=== PATIENT | female | born 1930 ===

== ENCOUNTER 2016-12-16 18:35 | Emergency (ER) | payer MEDICARE, OTHER ==
[2016-12-16 18:36] VITALS: BMI 24.4
[2016-12-16 18:58] VITALS: TEMP 99.3
[2016-12-16 19:19] VITALS: RESP 16; O2SAT 100
[2016-12-16] MEDS ORDERED: guaiFENesin 200 mg/10 ml Syrup UD PO ONE (21:22)
--- NOTE | 2016-12-16 21:22 | ED PDOC ---
Arrival/HPI - General Chief Complaint: Cough, Cold, Congestion Time Seen by Provider: 12/16/16 19:51 Historian: Patient - History of Present Illness Narrative History of Present Illness (Text): 12/16/16 21:33 Patient with past medical history of diabetes, complains of one day history of a dry cough. Patient is accompanied by her daughter, as per daughter she brought the patient to the ER today because she could not get an appointment with her PMD who happens to be away. Otherwise: (-) fever, (-) chills, (-) chest pain, (-) dyspnea, (-) hemoptysis, (-) upper back pain, (-) travel, (-) recent prolonged immobility. 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 - Pulmonary Hx Respiratory Disorders: No - Neurological Hx Neurological Disorder: No Hx Dementia: Yes - HEENT Hx HEENT Disorder: No - Renal Hx Renal Disorder: No - Endocrine/Metabolic Hx Diabetes Mellitus Type 2: Yes - Hematological/Oncological Hx Blood Disorders: No - Integumentary Hx Dermatological Disorder: No - Musculoskeletal/Rheumatological Hx Musculoskeletal Disorders: Yes Hx Arthritis: Yes Hx Rheumatoid Arthritis: Yes - Gastrointestinal Hx Gastrointestinal Disorders: No - Genitourinary/Gynecological Hx Genitourinary Disorders: No - Psychiatric Hx Psychophysiologic Disorder: No Hx Depression: No Hx Emotional Abuse: No Hx Physical Abuse: No Hx Substance Use: No - Past Surgical History Past Surgical History: No Previous - Surgical History Other/Comment: hemmoroidectomy - Anesthesia Hx Anesthesia: Yes Hx Anesthesia Reactions: No Hx Malignant Hyperthermia: No - Suicidal Assessment Feels Threatened In Home Enviroment: No Family/Social History - Physician Review Nursing Documentation Reviewed: Yes Family/Social History: No Known Family HX Smoking Status: Never Smoked Hx Alcohol Use: No Hx Substance Use: No Hx Substance Use Treatment: No Allergies/Home Meds Allergies/Adverse Reactions: Allergies No Known Allergies Allergy (Verified 12/16/16 18:58) Home Medications: Home Meds Medication Instructions Recorded Confirmed Alprazolam [Xanax] 0.25 mg PO BID 05/12/13 12/16/16 Losartan/Hydrochlorothiazide 1 tab PO DAILY 06/09/14 12/16/16 [Losartan Potassium-Hydrochlorothiazide 12.5 M] GlipiZIDE [Glucotrol] 5 mg PO DAILY 08/30/15 12/16/16 Escitalopram [Lexapro] 5 mg PO DAILY 06/14/16 12/16/16 Spironolactone [Aldactone] 25 mg PO DAILY PRN 06/14/16 12/16/16 Cyanocobalamin [Vitamin B12 1000 1,000 mcg IM 12/16/16 mcg/ml Inj] Review of Systems - Review of Systems Constitutional: Normal. absent: Fatigue, Weight Change, Fevers ENT: Normal. absent: Tinnitus, Sore Throat, Sinus Congestion Respiratory: Normal, Cough. absent: SOB, Sputum, Wheezing Cardiovascular: Normal. absent: Chest Pain, Palpitations, Edema Musculoskeletal: Normal. absent: Arthralgias, Back Pain, Neck Pain Skin: Normal. absent: Rash, Pruritis, Skin Lesions Physical Exam - Physical Exam Narrative Physical Exam (Text): 12/16/16 21:35 GENERAL APPEARANCE: Patient is awake, alert, oriented x 3, in no respiratory distress. Patient speaking in full sentences. SKIN: Warm, dry; (-) cyanosis. EYES: (-) conjunctival pallor. ENMT: Mucous membranes moist. Airway patent: (-) stridor. Pharynx: (-) swelling, (-) erythema, (-) exudate. NECK: (-) tenderness, (-) stiffness, (-) lymphadenopathy. CHEST AND RESPIRATORY: (-) rhonchi, (-) rales, (-) wheezes, (-) pleural rub; breath sounds equal bilaterally. HEART AND CARDIOVASCULAR: (-) irregularity; (-) murmur, (-) gallop. ABDOMEN AND GI: Soft; (-) tenderness. EXTREMITIES: (-) deformity; (-) edema. NEURO AND PSYCH: Mental status as above. Cranial nerves grossly intact; strength symmetric. Vital Signs Temp Pulse Resp BP Pulse Ox 12/16/16 19:18 62 16 141/54 L 100 12/16/16 18:54 99.3 F 66 18 146/73 98 Medical Decision Making ED Course and Treatment: 12/16/16 21:35 86-year-old female with past medical history of diabetes, presents with one-day history of a dry cough. Chest x-ray ordered. CXR : NAD, as read by PA Patient advised that official radiology read of XR is still pending and will call the patient if there is any discrepancy within 24 hours. X-ray results discussed with the patient and with her daughter. Patient given a dose of Zithromax 500 mg by mouth and guaifenesin by mouth. Patient was advised to continue both medications as prescribed. Follow up with primary care physician in 1-2 days without fail. Advised to take medication as prescribed. Return to the emergency room at any time for any new or worsening symptoms. - RAD Interpretation Radiology Orders: 12/16/16 19:52 CHEST TWO VIEWS (PA/LAT) [RAD] Stat - Medication Orders Current Medication Orders: Discontinued Medications Azithromycin (Zithromax) 500 mg PO STAT STA PRN Reason: Protocol Stop: 12/16/16 21:23 Guaifenesin (Robitussin) 400 mg PO ONCE ONE Stop: 12/16/16 21:23 - PA / PERFORMANCE CONSULTANT / Resident Statement / has reviewed & agrees with the documentation as recorded. Disposition/Present on Arrival - Present on Arrival Any Indicators Present on Arrival: Yes History of DVT/PE: No History of Uncontrolled Diabetes: Yes Urinary Catheter: No History of Decub. Ulcer: No History Surgical Site Infection Following: None - Disposition Have Diagnosis and Disposition been Completed?: Yes Diagnosis: Cough Disposition: HOME/ ROUTINE Disposition Time: 21:21 Patient Plan: Discharge Patient Problems: Current Active Problems Problem Status Onset Cough Acute Condition: GOOD Discharge Instructions (ExitCare): Acute Bronchitis (ED) Print Language: CHINESE Prescriptions: Azithromycin [Zithromax] 250 mg PO DAILY #4 tab Guaifenesin 400 mg PO QID #20 tablet Referrals: Stephani Peña MD [Primary Care Provider] - Follow up with primary
[2016-12-16 22:09] VITALS: BP 137/66; PULSE 61
--- NOTE | 2016-12-17 09:23 | RAD ---
HISTORY: cough COMPARISON: 06/14/2016 TECHNIQUE: Chest PA and lateral FINDINGS: LUNGS: No active pulmonary disease. PLEURA: No significant pleural effusion identified. No pneumothorax apparent. CARDIOVASCULAR: The heart is normal in size. There is mild aortic tortuosity OSSEOUS STRUCTURES: No significant abnormalities. VISUALIZED UPPER ABDOMEN: Normal. OTHER FINDINGS: None. IMPRESSION: No active disease.
--- NOTE | 2016-12-17 10:39 | CARD ---
APPROVED REPORT EKG Measurement Heart [id number] <Conclusion> Sinus rhythm APC's, new Left axis deviation NSSTW changes
== END 2016-12-16 22:08 | disposition home or self-care (01) ==
LOC: ED 18:35
DX: R05 Cough (principal); E11.9 Type 2 diabetes mellitus without complications

== ENCOUNTER 2017-07-20 09:48 | Observation (INO) | payer MEDICARE, OTHER ==
--- NOTE | 2017-07-20 10:34 | ED PDOC ---
Arrival/HPI - General Chief Complaint: Lower Extremity Problem/Injury Time Seen by Provider: 07/20/17 10:01 Historian: Patient - History of Present Illness Narrative History of Present Illness (Text): 07/20/17 10:31 86-year-old female with a history of dementia presents today with family's concern for generalized weakness and bilateral leg swelling. Patient complaining of pain to the left lower extremity with redness. Denies chest pain or shortness of breath. Denies abdominal pain. No nausea or vomiting. Patient denies urinary symptoms. Family members state that the patient had hematuria on the last UA performed by PMD. Patient Complaining of Low Back Pain. Denies Dizziness. 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 - Pulmonary Hx Respiratory Disorders: No - Neurological Hx Neurological Disorder: Yes Hx Dementia: Yes - HEENT Hx HEENT Disorder: No - Renal Hx Renal Disorder: No - Endocrine/Metabolic Hx Endocrine Disorders: Yes Hx Diabetes Mellitus Type 2: Yes - Hematological/Oncological Hx Blood Disorders: No - Integumentary Hx Dermatological Disorder: No - Musculoskeletal/Rheumatological Hx Musculoskeletal Disorders: Yes Hx Arthritis: Yes Hx Rheumatoid Arthritis: Yes - Gastrointestinal Hx Gastrointestinal Disorders: No - Genitourinary/Gynecological Hx Genitourinary Disorders: No - Psychiatric Hx Psychophysiologic Disorder: No Hx Depression: No Hx Emotional Abuse: No Hx Physical Abuse: No Hx Substance Use: No - Past Surgical History Past Surgical History: No Previous - Surgical History Other/Comment: hemmoroidectomy - Anesthesia Hx Anesthesia: Yes Hx Anesthesia Reactions: No Hx Malignant Hyperthermia: No - Suicidal Assessment Feels Threatened In Home Enviroment: No Family/Social History - Physician Review Nursing Documentation Reviewed: Yes Family/Social History: Unknown Family HX Smoking Status: Never Smoked Hx Alcohol Use: No Hx Substance Use: No Hx Substance Use Treatment: No Allergies/Home Meds Allergies/Adverse Reactions: Allergies No Known Allergies Allergy (Verified 12/16/16 18:58) Home Medications: Home Meds Medication Instructions Recorded Confirmed Alprazolam [Xanax] 0.25 mg PO BID 05/12/13 12/16/16 Losartan/Hydrochlorothiazide 1 tab PO DAILY 06/09/14 12/16/16 [Losartan Potassium-Hydrochlorothiazide 12.5 M] GlipiZIDE [Glucotrol] 5 mg PO DAILY 08/30/15 12/16/16 Escitalopram [Lexapro] 5 mg PO DAILY 06/14/16 12/16/16 Spironolactone [Aldactone] 25 mg PO DAILY PRN 06/14/16 12/16/16 Cyanocobalamin [Vitamin B12 1000 1,000 mcg IM 12/16/16 mcg/ml Inj] Review of Systems - Review of Systems Constitutional: Fatigue. absent: Fevers Respiratory: absent: SOB, Cough Cardiovascular: absent: Chest Pain, Palpitations Gastrointestinal: absent: Abdominal Pain, Nausea, Vomiting Genitourinary Female: Hematuria. absent: Dysuria, Frequency Musculoskeletal: Arthralgias, Back Pain. absent: Neck Pain Skin: absent: Rash, Pruritis Neurological: absent: Headache, Dizziness Psychiatric: absent: Anxiety, Depression, Suicidal Ideation Physical Exam Vital Signs Reviewed: Yes Vital Signs Temp Pulse Resp BP Pulse Ox 07/20/17 18:05 98.6 F 62 18 167/76 H 97 07/20/17 13:29 60 18 148/55 L 97 07/20/17 12:08 98.6 F 55 L 18 165/71 H 97 07/20/17 12:02 55 L 18 179/72 H 100 07/20/17 10:26 98.6 F 53 L 18 184/77 H 100 Temperature: Afebrile Blood Pressure: Hypertensive Pulse: Bradycardic Respiratory Rate: Normal Appearance: Positive for: Well-Appearing, Non-Toxic, Comfortable Pain Distress: None Mental Status: Positive for: Alert and Oriented X 3 Finger Stick Blood Glucose: 118 - Systems Exam Head: Present: Atraumatic Mouth: Present: Moist Mucous Membranes Neck: Present: Normal Range of Motion Respiratory/Chest: Present: Clear to Auscultation, Good Air Exchange. No: Respiratory Distress, Accessory Muscle Use Cardiovascular: Present: Regular Rate and Rhythm, Normal S1, S2. No: Murmurs Abdomen: Present: Normal Bowel Sounds. No: Tenderness, Distention, Peritoneal Signs, Rebound, Guarding Back: Present: Normal Inspection. No: CVA Tenderness, Midline Tenderness, Paraspinal Tenderness Upper Extremity: Present: Normal Inspection, Normal ROM Lower Extremity: Present: Edema, CALF TENDERNESS, NORMAL PULSES, Normal ROM, Tenderness (+ b/l calf tenderness and swelling. ), Swelling, Erythema (+ left lower leg erythema; + minimal edema. ), Capillary Refill < 2 s Neurological: Present: GCS=15, Speech Normal Skin: Present: Warm, Dry, Normal Color. No: Rashes Psychiatric: Present: Alert, Oriented x 3 Medical Decision Making ED Course and Treatment: 07/20/17 10:34 86-year-old female with generalized weakness and bilateral lower leg edema CBC wnl CMP wnl BNP: elevated 526 EKG shows sinus bradycardia at 59 bpm with left axis deviation CXR: wnl UA: + blood venous duplex; no dvt 07/20/17 13:34 all results discussed with family and patient in depth. pt reassessment; pt non toxic well appearing; no distress. stable vitals. rocephin given IV. pt with left lower leg erythema and bilateral lower leg edema; will cover with rocephin for celluitis. case discussed with dr. garnica; will observe to med/surg. impression; cellulitis, elevated bnp admit to med/surg; dr. garnica. - Lab Interpretations Lab Results: 07/20/17 11:00 07/20/17 11:00 Lab Results 07/20/17 11:00: WBC 7.5, RBC 3.67, Hgb 10.1 L, Hct 31.2 L, MCV 85.0, MCH 27.5, MCHC 32.4, RDW 14.1, Plt Count 321, MPV 10.4, Gran % 59.7, Lymph % (Auto) 30.1, [place] % (Auto) 6.4 H, Eos % (Auto) 3.3, Baso % (Auto) 0.5, Gran # 4.46, Lymph # 2.3, [place] # 0.5, Eos # 0.3, Baso # 0.04 07/20/17 11:00: Sodium 138, Potassium 4.1, Chloride 103, Carbon Dioxide 26, Anion Gap 13, BUN 45 H, Creatinine 1.2, Est GFR ( Amer) 51, Est GFR (Non- Af Amer) 42, Random Glucose 109, Calcium 9.6, Total Bilirubin 0.4, AST 34, ALT 33, Alkaline Phosphatase 53, NT-Pro-B Natriuret Pep 526 H, Total Protein 6.6, Albumin 3.7, Globulin 3.0, Albumin/Globulin Ratio 1.2 07/20/17 11:00: Urine Color Yellow, Urine Appearance Sl cloudy, Urine pH 6.0, Ur Specific [place] 1.020, Urine Protein 100 H, Urine Glucose (UA) Negative, Urine Ketones Negative, Urine Blood Moderate H, Urine Nitrate Negative, Urine Bilirubin Negative, Urine Urobilinogen 0.2, Ur Leukocyte Esterase Negative, Urine RBC 5 - 10, Urine WBC 0 - 2, Ur Epithelial Cells 0 - 2 07/20/17 11:00: PT 11.5, INR 1.00, APTT 32.1 - RAD Interpretation Radiology Orders: 07/20/17 10:17 CHEST ONE VIEW [RAD] Stat 07/20/17 10:18 DUPLEX LOWER EXTRM VEIN BILAT [US] Stat - Medication Orders Current Medication Orders: Discontinued Medications Ceftriaxone Sodium (Rocephin 1 Gram Ivpb) 1 gm in 100 mls @ 200 mls/hr IVPB STAT STA PRN Reason: Protocol Stop: 07/20/17 19:07 Disposition/Present on Arrival - Present on Arrival Any Indicators Present on Arrival: Yes History of DVT/PE: No History of Uncontrolled Diabetes: Yes Urinary Catheter: No History of Decub. Ulcer: No History Surgical Site Infection Following: None - Disposition Have Diagnosis and Disposition been Completed?: Yes Diagnosis: Cellulitis Disposition: HOSPITALIZED Disposition Time: 13:37 Patient Plan: Observation Patient Problems: Current Active Problems Problem Status Onset Cellulitis Acute Condition: FAIR
[2017-07-20 11:15] LABS: BASO # 0.04 K/mm3 (0.0-2.0); BASO % 0.5 % (0.0-3.0); EOS # 0.3 (0.0-0.7); EOS % 3.3 % (1.5-5.0); GRAN # 4.46 (1.4-6.5); GRAN % 59.7 % (50.0-68.0); HEMOGLOBIN 10.1 g/dL (12.0-16.0); LYMPH # 2.3 (1.2-3.4); LYMPH % 30.1 % (22.0-35.0); MEAN CORPUSCULAR HEMOGLOBIN 27.5 pg (25.0-35.0); MEAN CORPUSCULAR HGB CONC 32.4 g/dl (31.0-37.0); MEAN PLATELET VOLUME 10.4 fl (7.0-11.0); MONO # 0.5 (0.1-0.6); MONO % 6.4 % (1.0-6.0); RBC 3.67 10^6/uL (3.5-6.1); RED CELL DISTRIBUTION WIDTH 14.1 % (11.5-14.5); WHITE BLOOD COUNT 7.5 10^3/ul (4.5-11.0)
[2017-07-20 11:21] LABS: ALB/GLOB RATIO 1.2 (1.1-1.8); ALBUMIN 3.7 g/dL (3.0-4.8); CALCIUM 9.6 mg/dL (8.4-10.5)
[2017-07-20 11:31] LABS: URINE BILIRUBIN NEGATIVE (NEGATIVE); URINE BLOOD MODERATE (NEGATIVE); URINE GLUCOSE (UA) NEGATIVE (NEGATIVE); URINE LEUKOCYTE ESTERASE NEGATIVE Leu/uL (NEGATIVE); URINE NITRATE NEGATIVE (NEGATIVE); URINE PROTEIN 100 mg/dL (<30 mg/dL); URINE UROBILINOGEN 0.2 E.U./dL (<1 E.U./dL)
[2017-07-20 11:32] LABS: URINE APPEARANCE SL CLOUDY (CLEAR); URINE COLOR YELLOW (YELLOW)
[2017-07-20 11:33] LABS: PARTIAL THROMBOPLASTIN TIME 32.1 Seconds (25.1-36.5); PROTHROMBIN TIME 11.5 SECONDS (9.4-12.5)
[2017-07-20 11:41] LABS: URINE EPITHELIAL CELLS 0 - 2 /hpf (0-5); URINE WBC 0 - 2 /hpf (0-6)
[2017-07-20 12:11] VITALS: O2SAT 97
--- NOTE | 2017-07-20 12:15 | US ---
HISTORY: Leg pain and swelling. Evaluate for DVT PHYSICIAN(S): Tejinder Maldonado MD. TECHNIQUE: Duplex sonography and color-flow Doppler with graded compression were used to evaluate the deep venous systems of both lower extremities. FINDINGS: The visualized deep venous systems of both lower extremities are sonographically normal and compressible. Normal wave forms and augmentation are seen. There is no sonographic evidence for deep venous thrombosis in the visualized segments of both lower extremities. IMPRESSION: No sonographic evidence for deep venous thrombosis in the visualized segments of both lower extremities.
--- NOTE | 2017-07-20 12:37 | RAD ---
PROCEDURE: CHEST RADIOGRAPH, 1 VIEW HISTORY: weakness COMPARISON: 12/16/2016 FINDINGS: LUNGS: Clear. PLEURA: No pneumothorax or pleural fluid seen. CARDIOVASCULAR: Moderate aortic tortuosity OSSEOUS STRUCTURES: No significant abnormalities. VISUALIZED UPPER ABDOMEN: Normal. OTHER FINDINGS: None. IMPRESSION: No active disease.
[2017-07-20] MEDS ORDERED: cefTRIAXone 1 gm 1 GM/100 ML BAG IVPB STA (18:38)
[2017-07-21 00:25] VITALS: BMI 23.6
[2017-07-21] MEDS ORDERED: guaiFENesin 100 mg/5 ml Syrup UD PO STA (00:36)
[2017-07-21] MEDS ORDERED: guaiFENesin 200 mg/10 ml Syrup UD PO STA (00:43)
--- NOTE | 2017-07-21 04:56 | HP ---
CHIEF COMPLAINT: Lower extremity pain. HISTORY OF PRESENT ILLNESS: Ms. Nova Broderick is an 86-year-old female with history of dementia, came to the emergency room with the family, two daughters, concerning of generalized weakness, bilateral leg swelling. The patient is complaining of pain in the left lower extremity with redness and denies chest pain and shortness of breath. Denies abdominal pain. No nausea, vomiting, or diarrhea. No hematuria, hematochezia. No headache or dizziness. The patient has history of hematuria on the last urinalysis performed in my office, complaining of lower back pain. Recently, the patient has history of upper respiratory tract infection, was treated with antibiotics and cough syrup. PAST MEDICAL HISTORY: Hypertension, leaky heart valve according to the family, dementia, diabetes mellitus type 2, arthritis, rheumatoid arthritis, and hemorrhoidectomy. FAMILY HISTORY: Father and mother noncontributory. HABITS: Never smoked. No drugs, no ethanol. ALLERGIES: THE PATIENT IS NOT ALLERGIC WITH ANY MEDICATIONS. HOME MEDICATIONS: Xanax, losartan, glipizide, Lexapro, Aldactone, cyanocobalamin injection. REVIEW OF SYSTEMS: The patient was seen and examined at the bedside in the ER. Had ultrasound. Feeling fatigue and tired. No fever. No shortness of breath or cough but had history of upper respiratory tract infection and was taking antibiotics at home. No chest pain or palpitations. No abdominal pain. No nausea, vomiting, or diarrhea. History of hematuria but no dysuria or frequency. No arthralgia, back pain, or neck pain. Absent rash or pruritus. Absent headache and dizziness. Absent anxiety, depression, suicidal ideation. PHYSICAL EXAMINATION: VITAL SIGNS: Temperature 98.6, pulse 53, respiratory rate 18, blood pressure 184/77, and pulse oximetry 100%. HEENT: Head normocephalic, atraumatic. Eyes: PERRLA. Extraocular muscles intact. Conjunctivae clear. Nose patent. Mucous membranes moist. NECK: Supple. No carotid bruits. No JVD or thyromegaly. CHEST: Bilaterally symmetrical. HEART: S1 and S2 positive. LUNGS: Clear to auscultation. ABDOMEN: Soft. Bowel sounds present. No organomegaly. EXTREMITIES: Trace edema. NEUROLOGIC: The patient is awake and alert. Moving all 4 extremities. No focal deficits. LABORATORY DATA: White blood cells 7.5, hemoglobin 10.1, hematocrit 31.2, platelets 321. Sodium 132, potassium 4.1, BUN 45, creatinine 1.2, and glucose 109. ASSESSMENT AND PLAN: Ms. Nova Broderick is an 86-year-old lady with anemia, cellulitis of the leg, duplex lower extremity vein bilaterally is done. The patient was given ceftriaxone in the emergency room. Discussion done with physician salon shampoo assistant. The patient has history of dementia, hypertension, leaky heart valve according to the family, diabetes mellitus type 2, rheumatoid arthritis, degenerative joint disease, history of hemorrhoidectomy. Started the patient on medications. Gastroenterology and deep venous thrombosis prophylaxis. Discussion done with the daughter, [place], another daughter, and nurse practitioner, they will follow up. Stephani Peña MD MTDD
[2017-07-21] MEDS: Insulin Reg-LOW-Coverage SC SCH ×4 (05:34→21:30)
[2017-07-21 07:48] LABS: HEMOGLOBIN 9.4 g/dL (12.0-16.0); MEAN CELL VOLUME 84.3 fl (80.0-105.0); MEAN CORPUSCULAR HEMOGLOBIN 27.4 pg (25.0-35.0); MEAN CORPUSCULAR HGB CONC 32.5 g/dl (31.0-37.0); MEAN PLATELET VOLUME 10.1 fl (7.0-11.0); RBC 3.43 10^6/uL (3.5-6.1); RED CELL DISTRIBUTION WIDTH 14.2 % (11.5-14.5); WHITE BLOOD COUNT 6.7 10^3/ul (4.5-11.0)
[2017-07-21 07:52] LABS: IRON 100 ug/dL (45-180)
[2017-07-21 07:59] LABS: BLOOD UREA NITROGEN 33 mg/dL (7-21); CALCIUM 9.3 mg/dL (8.4-10.5); GFR AFRICAN-AMERICAN > 60; GFR NON-AFRICAN AMERICAN 59; HDL CHOLESTEROL 43 mg/dL (29-60)
[2017-07-21 08:00] LABS: % IRON SATURATION 38 % (20-55); TOTAL IRON BINDING CAPACITY 261 ug/dL (265-497)
[2017-07-21 08:08] LABS: LDL CHOLESTEROL 89 mg/dL (0-129)
[2017-07-21] MEDS ORDERED: Non Formulary Medication (Losartan/Hydrochlorothiazide [Losartan-Hctz 50-12.5 Mg Tab] 1 TA PO SCH (10:00)
[2017-07-21 12:56] LABS: FOLATE > 20.0 ng/mL
--- NOTE | 2017-07-21 16:20 | CP.PCM.CON ---
History of Present Illness - History of Present Illness History of Present Illness: 86 year old female with PMH of dementia, HTN, DM, S/P hemorrhoidectomy was brought in to [facility] because of bilateral lower extremity swelling worse on the left leg, as well as generalized weakness, which started about 3-4 days ago, with associated redness of the legs. She denies animal contacts, no soaking of feet and legs in water, no walking barefoot on soil. She also has no fever or chills, no nausea or vomiting, no chest pain, no SOB, no headache or dizziness, no cough or colds, no sore throat, no abdominal pain, no diarrhea, no dysuria. Infectious Diseases consult is requested to further evaluate and manage. Review of Systems - Review of Systems All systems: reviewed and no additional remarkable complaints except (as per hPI ) Past Patient History - Infectious Disease Hx of Infectious Diseases: None - Tetanus Immunizations Tetanus Immunization: Unknown - Past Social History Smoking Status: Never Smoked - CARDIAC Hx Cardiac Disorders: Yes Hx Hypertension: Yes Other/Comment: Leaky heart valves according to the family - PULMONARY Hx Respiratory Disorders: No - NEUROLOGICAL Hx Neurological Disorder: Yes Hx Dementia: Yes - HEENT Hx HEENT Problems: No - RENAL Hx Chronic Kidney Disease: No - ENDOCRINE/METABOLIC Hx Endocrine Disorders: Yes Hx Diabetes Mellitus Type 2: Yes - HEMATOLOGICAL/ONCOLOGICAL Hx Blood Disorders: No - INTEGUMENTARY Hx Dermatological Problems: No - MUSCULOSKELETAL/RHEUMATOLOGICAL Hx Musculoskeletal Disorders: Yes Hx Arthritis: Yes Hx Rheumatoid Arthritis: Yes - GASTROINTESTINAL Hx Gastrointestinal Disorders: No - GENITOURINARY/GYNECOLOGICAL Hx Genitourinary Disorders: No - PSYCHIATRIC Hx Psychophysiologic Disorder: No Hx Depression: No Hx Emotional Abuse: No Hx Physical Abuse: No Hx Substance Use: No - SURGICAL HISTORY Other/Comment: hemmoroidectomy - ANESTHESIA Hx Anesthesia: Yes Hx Anesthesia Reactions: No Hx Malignant Hyperthermia: No Meds Allergies/Adverse Reactions: Allergies Allergy/AdvReac Type Severity Reaction Status Date / Time No Known Allergies Allergy Verified 07/20/17 20:56 - Medications Medications: Current Medications Alprazolam (Xanax) 0.25 mg PO BID PRN; Protocol PRN Reason: anxiety Stop: 07/28/17 10:01 Last Admin: 07/20/17 22:39 Dose: 0.25 mg Escitalopram Oxalate (Lexapro) 5 mg PO DAILY JACK Famotidine (Pepcid) 40 mg PO HS JACK Last Admin: 07/20/17 22:36 Dose: 40 mg Glipizide (Glucotrol) 5 mg PO DAILY [facility] Hydrochlorothiazide (Microzide) 12.5 mg PO DAILY [facility] Insulin Human Regular (Humulin R Low) 0 units SC ACHS JACK PRN Reason: Protocol Losartan Potassium (Cozaar) 50 mg PO DAILY JACK Spironolactone (Aldactone) 25 mg PO DAILY PRN PRN Reason: Swelling Physical Exam - Constitutional Appears: Non-toxic, No Acute Distress - Head Exam Head Exam: NORMAL INSPECTION - ENT Exam ENT Exam: Mucous Membranes Moist - Neck Exam Neck exam: Negative for: Meningismus - Respiratory Exam Respiratory Exam: Decreased Breath Sounds - Cardiovascular Exam Cardiovascular Exam: +S1, +S2 - GI/Abdominal Exam GI & Abdominal Exam: Soft. absent: Tenderness - Extremities Exam Extremities exam: Positive for: pedal edema (decreased, decreased erythema as well) Results - Vital Signs Recent Vital Signs: Last Vital Signs Temp 98.6 F 07/20/17 20:16 Pulse 75 07/20/17 20:16 Resp 17 07/20/17 20:16 BP 164/82 H 07/20/17 20:16 Pulse Ox 97 07/20/17 20:16 - Labs Result Diagrams: 07/21/17 07:15 07/21/17 07:15 Assessment & Plan - Assessment and Plan (Free Text) Plan: Assessment bilateral lower extremity swelling consider venous stasis R/O cellulitis, no evidence of DVT dementia HTN DM S/P hemorrhoidectomy Plan Started the patient on Teflaro and will monitor clinically follow up blood cx; if she continues to improve tomorrow, may change to PO antibiotics
--- NOTE | 2017-07-21 18:15 | CARD ---
APPROVED REPORT EKG Measurement Heart [id number] <Conclusion> Sinus bradycardia Left axis deviation Abnormal ECG
--- NOTE | 2017-07-22 02:06 | PN ---
DATE: 07/21/2017 SUBJECTIVE: The patient is seen and examined at the bedside, her daughter was on the bedside also, feeling better. Swelling of the leg is better. No fever. No chills. No nausea, vomiting, or diarrhea. No hematemesis. She has no headache or dizziness. No chest pain. No palpitation. No hematuria or hematochezia. PHYSICAL EXAMINATION VITAL SIGNS: Temperature 98.3, pulse is 60, blood pressure 176/78, respiratory rate is 18. HEENT: Head: Normocephalic and atraumatic. Eyes: PERRLA. Extraocular muscles intact. Conjunctivae clear. Nose patent. NECK: Supple. No carotid bruits. No JVD or thyromegaly. CHEST: Bilaterally symmetrical. HEART: S1, S2 positive. LUNGS: Clear to auscultation. ABDOMEN: Soft. Bowel sounds present. No organomegaly. EXTREMITIES: Lower extremities, positive edema, redness, and ulcers. NEUROLOGIC: The patient is awake and alert. Moving all four extremities. No focal deficits. MEDICATIONS: Aldactone, ceftaroline, Cozaar, Glucotrol, insulin, Lexapro, hydrochlorothiazide, Pepcid, Tylenol, and Xanax. LABORATORY DATA: White blood cell is 6.7, hemoglobin 9.4, hematocrit 28.9, platelets 219, sodium 137, potassium 3.9, BUN 33, creatinine 0.9, and glucose 59. ASSESSMENT AND PLAN: Ms. Davie Bhatt is an 86 years old lady, seen and examined by me on 07/21/2017. Has anemia, increased BUN, hyperglycemia, rule out congestive heart failure, proteinuria, hematuria, always coughing, like to have cough medication. Now, we called pulmonary consult with Dr. Queen. She has history of dementia, hypertension, diabetes mellitus, hemorrhoidectomy, cellulitis of the leg, swelling of the leg is getting better, history of dementia. We will start the patient on Teflaro and we will monitor clinically. Follow blood culture if she continue to improve tomorrow and maintain p.o. antibiotics, out of bed physical therapy, waiting for Dr. Queen's input. We will follow up. Stephani Peña MD [facility] # [id number]
[2017-07-22] MEDS ORDERED: guaiFENesin DM 200 mg-20 mg/10 ml UD PO ONE (02:40)
--- NOTE | 2017-07-22 08:49 | CON ---
DATE: 07/21/2017 PULMONARY CONSULTATION REFERRING PHYSICIAN: Dr. Peña. REASON FOR CONSULTATION: Sleep apnea syndrome, shortness of breath. HISTORY OF PRESENT ILLNESS: This is an 86-year-old female with past medical history significant for hypertension, valvular heart disease, dementia, diabetes, rheumatoid arthritis, brought into Emergency Room with bilateral lower leg swelling, erythema, seen by Infectious Disease, was started on antibiotics. According to doctor, patient lately becoming very forgetful, has a loud snoring at nighttime, daytime sleepy and tired. No hemoptysis. No hematemesis. No hematuria or diarrhea reported. PAST MEDICAL HISTORY: As per history present illness. ALLERGIES: NONE KNOWN. SOCIAL HISTORY: Never smoked. No history of alcohol abuse. FAMILY HISTORY: Not significant. Cardiopulmonary disease reported. MEDICATIONS: She is on Aldactone 25 mg daily p.r.n. basis, ceftaroline 400 mg q.12 hours, Cozaar 50 mg daily, glipizide 5 mg daily, insulin coverage, Lexapro 5 mg daily, hydrochlorothiazide 12.5 mg daily, Pepcid 40 mg daily, Tylenol p.r.n., Xanax 0.25 mg twice a day p.r.n. REVIEW OF SYSTEMS: No headache, no rhinitis. Has a loud snoring, daytime sleepy, short of breath with exertion. No nausea, no vomiting. No diarrhea. Leg swelling and erythema is better now. PHYSICAL EXAMINATION: GENERAL: No acute distress. VITAL SIGNS: Temperature is 98, heart rate 60, respiratory rate is 20, blood pressure 176/78, pulse ox 97% room air. HEENT: Moist mucous membranes. Crowded airway, Mallampati score is IV. NECK: Supple. No JVD. LUNGS: Has few scattered rhonchi. HEART: S1 and S2. ABDOMEN: Soft, nontender, no organomegaly. EXTREMITIES: Has edema. No more erythema. NEUROLOGIC: Awake and alert. Follows simple command. LABORATORY DATA: Shows hemoglobin 9.4, hematocrit 28.9, WBC 6.7, platelet is 290. INR 1.0. PTT is 32. Blood sugar 119. Sodium 137, potassium 3.9, chloride 105, bicarbonate 25, BUN 33, creatinine 0.9, glucose 99, hemoglobin A1c 6.4, calcium 9.3, iron is 100, triglycerides 102, cholesterol 161, vitamin B12 is more than 1000. Folate more than 20. TSH 1.42. Has an ultrasound of the lower extremity done, which shows no DVT. Chest x-ray shows no infiltrate. IMPRESSION AND PLAN: Cellulitis of lower extremity, anemia, dementia, hypertension, valvular heart disease, diabetes, history of rheumatoid arthritis. Spoke to patient's daughter at bedside. All the questions answered. We will need echocardiogram to assess left ventricle and right ventricle function, need to rule out sleep apnea syndrome. For now, careful with sedation. Upon discharge, need sleep study. We will also get CT of the head, which showed there is no hydrocephalus especially when daughter mentioning about forgetfulness. B12 has been normal. May send VDRL. Thank you and we will follow with you. Faheem Queen MD
[2017-07-22] MEDS: Insulin Reg-LOW-Coverage SC SCH ×2 (09:10→11:59)
[2017-07-22 09:14] VITALS: PULSE 57; RESP 20; TEMP 99.2
--- NOTE | 2017-07-22 09:38 | CT ---
PROCEDURE: CT HEAD WITHOUT CONTRAST. HISTORY: dementia COMPARISON: None available. TECHNIQUE: Axial computed tomography images were obtained through the head/brain without intravenous contrast. Radiation dose: Total exam DLP = 788 mGy-cm. This CT exam was performed using one or more of the following dose reduction techniques: Automated exposure control, adjustment of the mA and/or kV according to patient size, and/or use of iterative reconstruction technique. FINDINGS: HEMORRHAGE: No intracranial hemorrhage. BRAIN: No mass effect or edema. No atrophy or chronic microvascular ischemic changes. VENTRICLES: Unremarkable. No hydrocephalus. CALVARIUM: Unremarkable. PARANASAL SINUSES: Unremarkable as visualized. No significant inflammatory changes. MASTOID AIR CELLS: Unremarkable as visualized. No inflammatory changes. OTHER FINDINGS: None. IMPRESSION: No acute findings
[2017-07-22 10:50] VITALS: BP 183/79
[2017-07-22] MEDS ORDERED: guaiFENesin 200 mg/10 ml Syrup UD PO STA (11:52)
--- NOTE | 2017-07-22 12:35 | CARD ---
APPROVED REPORT EXAM: Two-dimensional and M-mode echocardiogram with Doppler and color Doppler. INDICATION Congestive Heart Failure 2D DIMENSIONS Left Atrium (2D)4.7 (1.6-4.0cm)IVSd1.0 (0.7-1.1cm) LVDd3.3 (3.9-5.9cm)PWd0.9 (0.7-1.1cm) LVDs2.3 (2.5-4.0cm)FS (%) 31.1 % LVEF (%)60.1 (>50%) M-Mode DIMENSIONS Aortic Root2.70 (2.2-3.7cm)Aortic Cusp Exc.1.60 (1.5-2.0cm) Aortic Valve AoV Peak Hjdgyvqx482.0cm/sAoV VTI48.1cmAO Peak GR.17mmHg AO Mean GR.9mmHgAI P 1/2 [id number] Mitral Valve MV E Jlzfvqbo76.4cm/sMV A Iiolyhun63.3cm/sE/A ratio0.9 TDI Lateral E' Peak V7.70cm/sMedial E' Peak V6.82cm/sE/Lateral E'11.0 E/Medial E'12.4 Pulmonary Valve PV Peak Wvtsuwfe83.0cm/sPV Peak Grad.2mmHg Tricuspid Valve TR Peak Xbtgkxoh616ui/sRAP AWEFGYOB94ufUwZH Peak Gr.37mmHg BMYV34mgQz LEFT VENTRICLE The left ventricle is normal size. There is normal left ventricular wall thickness. The left ventricular function is normal. The left ventricular ejection fraction is within the normal range. There is normal LV segmental wall motion. Transmitral Doppler flow pattern is Grade I-abnormal relaxation pattern. RIGHT VENTRICLE The right ventricle is normal size. There is normal right ventricular wall thickness. The right ventricular systolic function is normal. ATRIA The left atrium is moderately dilated. The right atrium is mildly dilated. AORTIC VALVE The aortic valve is mildly thickened. There is moderate aortic regurgitation. MITRAL VALVE The mitral valve is moderately thickened. Mitral regurgitation is moderate. TRICUSPID VALVE There is mild tricuspid regurgitation. There is mild to moderate pulmonary hypertension. GREAT VESSELS The aortic root is normal in size. The IVC is normal in size and collapses >50% with inspiration. PERICARDIAL EFFUSION There is no pericardial effusion. <Conclusion> The left ventricle is normal size. There is normal left ventricular wall thickness. The left ventricular function is normal. The left ventricular ejection fraction is within the normal range. There is normal LV segmental wall motion. Transmitral Doppler flow pattern is Grade I-abnormal relaxation pattern. There is moderate aortic regurgitation. Mitral regurgitation is moderate. There is mild tricuspid regurgitation. There is mild to moderate pulmonary hypertension.
--- NOTE | 2017-07-22 14:33 | CP.PCM.PN ---
Subjective - Date & Time of Evaluation Date of Evaluation: 07/22/17 Time of Evaluation: 12:40 - Subjective Subjective: Comfortable, legs feel much better, no nausea, no fevers. Objective - Vital Signs/Intake and Output Vital Signs (last 24 hours): Temp Pulse Resp BP Pulse Ox 99.2 F 57 L 20 180/79 H 97 07/22/17 07:30 07/22/17 07:30 07/22/17 07:30 07/22/17 07:30 07/22/17 07:30 Intake and Output: 07/22/17 07/22/17 06:59 18:59 Intake Total 660 Balance 660 - Medications Medications: Current Medications Acetaminophen (Tylenol 325mg Tab) 650 mg PO Q6H PRN PRN Reason: Pain, Mild (1-3) Alprazolam (Xanax) 0.25 mg PO BID PRN; Protocol PRN Reason: anxiety Stop: 07/28/17 10:01 Last Admin: 07/21/17 21:49 Dose: 0.25 mg Escitalopram Oxalate (Lexapro) 5 mg PO DAILY [facility] Last Admin: 07/21/17 09:49 Dose: 5 mg Famotidine (Pepcid) 40 mg PO HS [facility] Last Admin: 07/21/17 21:47 Dose: 40 mg Glipizide (Glucotrol) 5 mg PO DAILY [facility] Last Admin: 07/21/17 09:57 Dose: 5 mg Hydrochlorothiazide (Microzide) 12.5 mg PO DAILY [facility] Last Admin: 07/21/17 09:51 Dose: 12.5 mg Ceftaroline Fosamil 400 mg/ (Sodium Chloride) 100 mls @ 100 mls/hr IVPB Q12 JACK PRN Reason: Protocol Stop: 07/27/17 23:46 Last Admin: 07/21/17 21:47 Dose: 100 mls/hr Insulin Human Regular (Humulin R Low) 0 units SC ACHS JACK PRN Reason: Protocol Last Admin: 07/22/17 09:10 Dose: Not Given Losartan Potassium (Cozaar) 50 mg PO DAILY [facility] Last Admin: 07/21/17 09:49 Dose: 50 mg Spironolactone (Aldactone) 25 mg PO DAILY PRN PRN Reason: Swelling - Labs Labs: 07/21/17 07:15 07/21/17 07:15 PT 11.5 SECONDS (9.4-12.5) 07/20/17 11:00 INR 1.00 (0.93-1.08) 07/20/17 11:00 APTT 32.1 Seconds (25.1-36.5) 07/20/17 11:00 - Constitutional Appears: Non-toxic - Head Exam Head Exam: NORMAL INSPECTION - ENT Exam ENT Exam: Mucous Membranes Moist - Neck Exam Neck Exam: absent: Meningismus - Respiratory Exam Respiratory Exam: Decreased Breath Sounds - Cardiovascular Exam Cardiovascular Exam: +S1, +S2 - GI/Abdominal Exam GI & Abdominal Exam: Soft. absent: Tenderness - Extremities Exam Additional comments: much improved swelling and erythema of both lower extremities Assessment and Plan - Assessment and Plan (Free Text) Plan: Assessment bilateral lower extremity swelling consider venous stasis R/O cellulitis, no evidence of DVT; clinically improving dementia HTN DM S/P hemorrhoidectomy Plan on Teflaro day 2 - can switch to PO Keflex and PO Doxycycline for another 3-5 days, with outpatient follow up with PMD blood cx are negative
--- NOTE | 2017-07-24 06:05 | DS ---
CHIEF COMPLAINT: Lower extremity pain, fatigue, tired. HISTORY OF PRESENT ILLNESS: Ms. Nova Broderick is an 86-year-old female with history of dementia, came to the emergency room with the family, two daughters, Asiya and the other one, bring mother for generalized weakness, bilateral leg swelling, redness, warmth, more pain in the left lower extremity with shortness of breath. The patient is always complaining about coughing, we called pulmonary consult at this time, antibiotics given, ID saw the patient and the patient improved. According to the family, the patient was having increasing frequency of memory problem. Dr. Queen ordered CAT scan of the head that reviewed by me. The patient improved and discharged home, follow up as outpatient. 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 PAST MEDICAL HISTORY: Hypertension, leaky heart valve. According to family, dementia, diabetes mellitus type 2, rheumatoid arthritis, and hemorrhoidectomy . FAMILY HISTORY: Father and mother noncontributory. HABITS: Never smoked. No drug and ethanol. ALLERGIES: THE PATIENT IS NOT ALLERGIC WITH ANY MEDICATIONS. HOME MEDICATIONS: Reviewed by me. REVIEW OF SYSTEMS: The patient is seen and examined on the bedside, looking comfortable. No nausea, vomiting, or diarrhea. No hematuria or hematochezia. No swelling of the legs. No chest pain. No palpitations. No headache or dizziness, but feeling of coughing once in a while. PHYSICAL EXAMINATION: VITAL SIGNS: Temperature 99.2, pulse 57, respiratory rate 20, blood pressure 180/79, and pulse oximetry 97%. HEAD: Head; normocephalic and atraumatic. Eyes; PERRLA. Extraocular muscles intact. Conjunctivae clear. Nose patent. Mucous membranes moist. NECK: Supple. No carotid bruits, JVD, or thyromegaly. CHEST: Bilaterally symmetrical. HEART: S1 and S2 positive. LUNGS: Clear to auscultation. ABDOMEN: Soft. Bowel sounds present. No organomegaly. EXTREMITIES: No edema, no cyanosis. NEUROLOGIC: The patient is awake and alert. Moving all four extremities. No focal deficits.. MEDICATIONS: Tylenol, Xanax, Lexapro, Pepcid, Glucotrol, hydrochlorothiazide, ceftaroline, insulin, Cozaar and spironolactone. LABORATORY DATA: White blood cell 6.7, hemoglobin 9.4, hematocrit 28.9, and platelets 290. Sodium 137, potassium 3.9, BUN 36, creatinine 0.9, and glucose 99. ASSESSMENT AND PLAN: Ms. Nova Broderick is an 86-year-old lady with anemia, dementia, bilateral lower extremity swelling, consider venous stasis wound or cellulitis, no evidence of deep venous thrombosis prophylaxis, clinically improving. For dementia, Dr. Queen did CAT scan of the head that reviewed by me; hypertension; diabetes mellitus; history of hemorrhoidectomy. The patient got Teflaro for 2 days, then ID switched to p.o. Keflex and doxycycline for another three to five days with outpatient followup with my office. Blood cultures are negative up-to-date. History of chronic obstructive pulmonary disease, valvular heart disease, rheumatoid arthritis. Length of family discussion done with both of the patient's daughter, prescriptions given and discharged home with a plan that the patient will get PT treatment as outpatient. We will follow up. Stephani Peña MD
== END 2017-07-22 15:39 | disposition home or self-care (01) ==
LOC: ED 09:48 → ERH 14:15 → 5RSO 21:45
PROVIDERS: ADMIT Internal Medicine; ATTEND Internal Medicine
DX: L03.119 Cellulitis of unspecified part of limb (principal); D64.9 Anemia, unspecified; F03.90 Unspecified dementia, unspecified severity, without behavioral disturbance, psychotic disturbance, mood disturbance, and anxiety; I10 Essential (primary) hypertension; M06.9 Rheumatoid arthritis, unspecified; G47.30 Sleep apnea, unspecified; J44.9 Chronic obstructive pulmonary disease, unspecified; Z79.899 Other long term (current) drug therapy; M19.90 Unspecified osteoarthritis, unspecified site; E11.65 Type 2 diabetes mellitus with hyperglycemia; R40.2412 Glasgow coma scale score 13-15, at arrival to emergency department; I38 Endocarditis, valve unspecified
CPT/HCPCS: 36415; 70450; 71045; 80048; 80053; 80061; 81001; 82607; 82746; 82948; 83036; 83540; 83550; 83880; 84443; 85025; 85027; 85610; 85730; 87040; 93005; 93306; 93970; 96365; 97116; 97161; 99285; G0378; G8978; G8979; J0696; J0712

== ENCOUNTER 2018-01-23 20:47 | Inpatient (IN) | payer MEDICARE, OTHER ==
--- NOTE | 2018-01-23 21:07 | ED PDOC ---
Arrival/HPI <Adis Cabello - Last Filed: 01/23/18 22:57> - General Historian: Patient, Family (both daughters) - History of Present Illness Time/Duration: Other (see hpi) Context: Home <Viridiana Haq - Last Filed: 01/23/18 23:41> - General Chief Complaint: Lower Extremity Problem/Injury Time Seen by Provider: 01/23/18 20:54 - History of Present Illness Narrative History of Present Illness (Text): 01/23/18 21:06 This 87 yo female with pmh diabetes, dementia, HTN, heart valve regurgitation, presents to this ED with daughters c/o right arm swelling x 2 weeks. Patient stated she had right shoulder fracture x 4 weeks ago. Daughter stated patient had a normal UE venpous doppler x 2 weeks ago. Patient was taking Augmentin for right lower leg cellulitis x 2 weeks ago. Patient denies sob, cp, abdominal pain, GARCIA, dizziness, n/v, urinary symptoms, or CMS. (Viridiana Haq) Past Medical History - Provider Review Nursing Documentation Reviewed: Yes - Infectious Disease Hx of Infectious Diseases: None - Tetanus Immunization Tetanus Immunization: Unknown - Cardiac Hx Cardiac Disorders: Yes Hx Hypertension: Yes - Pulmonary Hx Respiratory Disorders: No - Neurological Hx Neurological Disorder: No - HEENT Hx HEENT Disorder: No - Renal Hx Renal Disorder: No - Endocrine/Metabolic Hx Diabetes Mellitus Type 2: Yes - Hematological/Oncological Hx Blood Disorders: No - Integumentary Hx Dermatological Disorder: No - Musculoskeletal/Rheumatological Hx Arthritis: Yes - Gastrointestinal Hx Gastrointestinal Disorders: No - Genitourinary/Gynecological Hx Genitourinary Disorders: No - Psychiatric Hx Psychophysiologic Disorder: No Hx Depression: No Hx Emotional Abuse: No Hx Physical Abuse: No Hx Substance Use: No - Past Surgical History Past Surgical History: No Previous - Surgical History Other/Comment: hemmoroidectomy - Anesthesia Hx Anesthesia: Yes Hx Anesthesia Reactions: No Hx Malignant Hyperthermia: No - Suicidal Assessment Feels Threatened In Home Enviroment: No <Viridiana Haq - Last Filed: 01/23/18 23:41> Family/Social History - Physician Review Nursing Documentation Reviewed: Yes Family/Social History: Other (noncontributory) Smoking Status: Never Smoked Hx Alcohol Use: No Hx Substance Use: No Hx Substance Use Treatment: No <Viridiana Haq - Last Filed: 01/23/18 23:41> Allergies/Home Meds <Adis Cabello - Last Filed: 01/23/18 22:57> <SeverinoDaisydanuta Xie - Last Filed: 01/23/18 23:41> Allergies/Adverse Reactions: Allergies No Known Allergies Allergy (Verified 07/20/17 20:56) Home Medications: Home Meds Medication Instructions Recorded Confirmed Losartan/Hydrochlorothiazide 1 tab PO DAILY 06/09/14 01/23/18 [Losartan-Hctz 50-12.5 mg Tab] GlipiZIDE [Glucotrol] 5 mg PO DAILY 08/30/15 01/23/18 Escitalopram [Lexapro] 5 mg PO DAILY 06/14/16 01/23/18 Ferrous Gluconate [Fergon] 324 mg PO TID 01/23/18 01/23/18 Furosemide [Lasix] 20 mg PO DAILY 01/23/18 01/23/18 Insulin Human Regular [HumuLIN R] 100 units SC ACHS 01/23/18 01/23/18 Lidocaine [Lidocare] 1 each TP Q12 01/23/18 01/23/18 Metoprolol Tartrate [Lopressor] 25 mg PO BID 01/23/18 01/23/18 Vit B Cmplx 3/Folic AC/C/Biot 1 tab PO DAILY 01/23/18 01/23/18 [[facility] Rx] amLODIPine [Norvasc] 5 mg PO DAILY 01/23/18 01/23/18 Review of Systems - Review of Systems Systems not reviewed;Unavailable: Other (information taken from daughters) Constitutional: Normal. absent: Fatigue, Weight Change, Fevers Eyes: Normal ENT: Normal Respiratory: Normal. absent: SOB, Cough Cardiovascular: Normal. absent: Chest Pain, Palpitations Gastrointestinal: Normal. absent: Abdominal Pain, Nausea, Vomiting Genitourinary Female: Normal Musculoskeletal: Other (see hpi) Skin: Normal Neurological: Normal Endocrine: Normal Hemo/Lymphatic: Normal Psychiatric: Normal <SeverinoDaisydanuta Xie - Last Filed: 01/23/18 23:41> Physical Exam Temperature: Afebrile Blood Pressure: Normal Pulse: Regular Respiratory Rate: Normal Appearance: Positive for: Well-Appearing, Non-Toxic, Comfortable Pain Distress: None - Systems Exam Head: Present: Atraumatic, Normocephalic Pupils: Present: PERRL Extroacular Muscles: Present: EOMI Conjunctiva: Present: Normal Mouth: Present: Moist Mucous Membranes Neck: Present: Normal Range of Motion. No: Meningeal Signs Respiratory/Chest: Present: Good Air Exchange, Rhonchi (LLL rhonchi?). No: Respiratory Distress, Accessory Muscle Use, Wheezes, Rales, Retracting Cardiovascular: Present: Regular Rate and Rhythm, Normal S1, S2. No: Murmurs Abdomen: No: Tenderness, Distention, Peritoneal Signs, Rebound, Guarding Back: Present: Normal Inspection Upper Extremity: Present: Normal Inspection. No: Cyanosis, Edema Lower Extremity: Present: Normal Inspection. No: Edema Neurological: Present: GCS=15, CN II-XII Intact, Speech Normal Skin: Present: Warm, Dry, Normal Color. No: Rashes Psychiatric: Present: Alert, Normal Insight, Normal Concentration <Haq,Nahim P - Last Filed: 01/23/18 23:41> Vital Signs Temp Pulse Resp BP Pulse Ox 01/23/18 23:11 145/80 01/23/18 21:00 97.8 F 61 18 172/76 H 99 Medical Decision Making <Adis Cabello - Last Filed: 01/23/18 22:57> Re-evaluation Time: 23:40 Reassessment Condition: Re-examined, Improving,but remains with symptoms - Lab Interpretations I have reviewed the lab results: Yes Interpretation: Abnormal lab values - EKG Interpretation Interpreted by ED Physician: Yes (Sinus Bradycardia @ [address] changes) Type: 12 lead EKG Comparison: No previous EKG avail. <Haq,Nahim P - Last Filed: 01/23/18 23:41> ED Course and Treatment: 01/23/18 23:[address] Peña regarding patient c/o edema. BNP was elevated. Hg was 7.0. Dr. Peña agreed with Blood transfusion, and Lasix 40 mg IVP. Patient and family agreed with plan for admission. Also, daughter agreed with blood transfusion. (Haq,Nahim P) - Lab Interpretations Lab Results: 01/23/18 21:34 01/23/18 21:34 Lab Results 07/16/18 22:28: Blood Type O POSITIVE, Antibody Screen Negative, Crossmatch See Detail, BBK History Checked Patient has bt 01/23/18 21:34: Sodium 134, Potassium 4.5, Chloride 99, Carbon Dioxide 27, Anion Gap 13, BUN 28 H, Creatinine 1.2, Est GFR ( Amer) 51, Est GFR (Non- Af Amer) 42, Random Glucose 108, Calcium 8.7, Magnesium 2.0, Total Bilirubin 0.3 , AST 37 H, ALT 34, Alkaline Phosphatase 78, Lactate Dehydrogenase 489, Total Creatine Kinase 87, Troponin I < 0.01, NT-Pro-B Natriuret Pep 961 H, Total Protein 6.2, Albumin 3.4, Globulin 2.8, Albumin/Globulin Ratio 1.2 01/23/18 21:34: PT 11.2, INR 0.98 01/23/18 21:34: WBC 9.9 D, RBC 2.46 L, Hgb 7.0 L D, Hct 21.3 L, MCV 86.6, MCH 28.5, MCHC 32.9, RDW 16.3 H, Plt Count 492 H, MPV 9.6, Gran % 69.0 H, Lymph % ( Auto) 23.9, [place] % (Auto) 5.2, Eos % (Auto) 1.7, Baso % (Auto) 0.2, Gran # 6.84 H, Lymph # (Auto) 2.4, [place] # (Auto) 0.5, Eos # (Auto) 0.2, Baso # (Auto) 0.02 - RAD Interpretation Radiology Orders: 01/23/18 21:27 CHEST PORTABLE [RAD] Stat DUPLEX UPPER EXTRM VEIN RIGHT [US] Stat - Medication Orders Current Medication Orders: Discontinued Medications Furosemide (Lasix) 40 mg IVP STAT STA Stop: 01/23/18 22:40 Last Admin: 01/23/18 23:11 Dose: 40 mg MAR Blood Pressure Document 01/23/18 23:11 AD (Rec: 01/23/18 23:11 AD [id number]) Blood Pressure Blood Pressure (100/60-150/90) 145/80 IVP Administration Document 01/23/18 23:11 AD (Rec: 01/23/18 23:11 AD [id number]) Charges for Administration # of IVP Administrations 1 - 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 / has examined the patient and agrees with the treatment plan. <Aids Cabello - Last Filed: 01/23/18 22:57> Disposition/Present on Arrival <Adis Cabello - Last Filed: 01/23/18 22:57> - Present on Arrival Any Indicators Present on Arrival: No History of DVT/PE: No History of Uncontrolled Diabetes: Yes Urinary Catheter: No History of Decub. Ulcer: No History Surgical Site Infection Following: None - Disposition Have Diagnosis and Disposition been Completed?: Yes Disposition Time: 23:41 Patient Plan: Admission <Viridiana Haq - Last Filed: 01/23/18 23:41> - Disposition Diagnosis: CHF exacerbation, Anemia Disposition: HOSPITALIZED Condition: STABLE Discharge Instructions (ExitCare): Heart Failure (ED) Forms: [employer] (Vietnamese)
[2018-01-23 21:39] LABS: BASO # 0.02 K/mm3 (0.0-2.0); BASO % 0.2 % (0.0-3.0); EOS # 0.2 (0.0-0.7); EOS % 1.7 % (1.5-5.0); GRAN # 6.84 (1.4-6.5); LYMPH # 2.4 (1.2-3.4); LYMPH % 23.9 % (22.0-35.0); MEAN CELL VOLUME 86.6 fl (80.0-105.0); MEAN CORPUSCULAR HEMOGLOBIN 28.5 pg (25.0-35.0); MEAN CORPUSCULAR HGB CONC 32.9 g/dl (31.0-37.0); MEAN PLATELET VOLUME 9.6 fl (7.0-11.0); MONO # 0.5 (0.1-0.6); MONO % 5.2 % (1.0-6.0); RBC 2.46 10^6/uL (3.5-6.1); RED CELL DISTRIBUTION WIDTH 16.3 % (11.5-14.5); WHITE BLOOD COUNT 9.9 10^3/ul (4.5-11.0)
[2018-01-23 21:46] LABS: INR 0.98 (0.93-1.08); PROTHROMBIN TIME 11.2 SECONDS (9.4-12.5)
[2018-01-23 21:50] LABS: ALB/GLOB RATIO 1.2 (1.1-1.8); ALBUMIN 3.4 g/dL (3.0-4.8); ALT/SGPT 34 U/L (7-56); AST/SGOT 37 U/L (14-36); BLOOD UREA NITROGEN 28 mg/dL (7-21); CALCIUM 8.7 mg/dL (8.4-10.5); GFR AFRICAN-AMERICAN 51; GFR NON-AFRICAN AMERICAN 42
[2018-01-23 22:03] LABS: B-TYPE NATRIURETIC PEPTIDE 961 pg/mL (0-450); TROPONIN I < 0.01 ng/mL
[2018-01-23 23:53] LABS: PH,URINE 6.5 (4.7-8.0); URINE BILIRUBIN NEGATIVE (NEGATIVE); URINE BLOOD SMALL (NEGATIVE); URINE GLUCOSE (UA) NEGATIVE (NEGATIVE); URINE LEUKOCYTE ESTERASE NEGATIVE Leu/uL (NEGATIVE); URINE PROTEIN >=300 mg/dL (<30 mg/dL); URINE UROBILINOGEN 0.2 E.U./dL (<1 E.U./dL)
[2018-01-24 00:04] LABS: URINE APPEARANCE CLEAR (CLEAR); URINE COLOR YELLOW (YELLOW)
[2018-01-24 00:07] LABS: URINE EPITHELIAL CELLS 0 - 2 /hpf (0-5); URINE WBC 0 - 2 /hpf (0-6)
[2018-01-24 02:46] VITALS: BMI 26.7
[2018-01-24] MEDS ORDERED: Pneumococcal 23-Valent Vaccine IM ONE (02:47)
--- NOTE | 2018-01-24 08:39 | RAD ---
Date of service: 01/23/2018 HISTORY: admission COMPARISON: 07/20/2017. FINDINGS: LUNGS: The lungs are well inflated and clear. PLEURA: No significant pleural effusion identified, no pneumothorax apparent. CARDIOVASCULAR: There is mild cardiomegaly. OSSEOUS STRUCTURES: No significant abnormalities. VISUALIZED UPPER ABDOMEN: Normal. OTHER FINDINGS: None. IMPRESSION: No active pulmonary disease.
--- NOTE | 2018-01-24 09:29 | CARD ---
APPROVED REPORT Date of service: 01/23/2018 EKG Measurement Heart [id number] IL [id number] <Conclusion> Sinus bradycardia Left axis deviation
[2018-01-24] MEDS: Multivitamin Vitamin B Complex (Nephro-Vite) Tab PO SCH (09:40)
[2018-01-24] MEDS: LIDOCAINE TP SCH ×2 (09:42→23:17)
[2018-01-24] MEDS ORDERED: Non Formulary Medication (Losartan/Hydrochlorothiazide [Losartan-Hctz 50-12.5 Mg Tab] 1 TA PO SCH (10:00)
[2018-01-24 11:26] LABS: IRON 153 ug/dL (45-180)
[2018-01-24 11:35] LABS: % IRON SATURATION 58 % (20-55); TOTAL IRON BINDING CAPACITY 262 ug/dL (265-497)
[2018-01-24] MEDS: Insulin Reg-LOW-Coverage SC SCH ×3 (11:39→23:54)
[2018-01-24 11:45] LABS: MEAN CELL VOLUME 84.7 fl (80.0-105.0); MEAN CORPUSCULAR HEMOGLOBIN 28.9 pg (25.0-35.0); MEAN CORPUSCULAR HGB CONC 34.1 g/dl (31.0-37.0); MEAN PLATELET VOLUME 9.5 fl (7.0-11.0); RBC 3.46 10^6/uL (3.5-6.1); RED CELL DISTRIBUTION WIDTH 15.4 % (11.5-14.5); WHITE BLOOD COUNT 8.4 10^3/ul (4.5-11.0)
[2018-01-24 16:41] VITALS: RESP 19; TEMP 98.3; O2SAT 97
[2018-01-24 16:44] LABS: FOLATE > 20.0 ng/mL
--- NOTE | 2018-01-24 20:10 | US ---
PROCEDURE: Right upper extremity venous US CLINICAL HISTORY: Arm pain and swelling Evaluate for deep venous thrombosis. PHYSICIAN(S): Tejinder Maldonado M.D FINDINGS: The visualized rightinternal jugular vein is sonographically normal and compressible. No evidence of obstruction or thrombus is seen. The visualized segments of the right subclavian vein are patent with normal waveforms. No sonographic evidence of obstruction or thrombosis is seen. The visualized deep venous system of the proximal right upper extremity is sonographically normal and compressible. IMPRESSION: 1. No sonographic evidence for deep venous thrombosis in the visualized segments of the right upper extremity.
--- NOTE | 2018-01-24 22:09 | CON ---
DATE: 01/24/2018 CARDIOLOGY CONSULTATION REASON FOR THE CONSULTATION AND FOLLOWUP: Cardiac evaluation for possible CHF. BRIEF CLINICAL HISTORY: This is an 87-year-old female, [facility] the [facility] with past medical history significant for diabetes, hypertension, hyperlipidemia, dementia, brought by the family. The daughter noticed swelling of the right arm, swelling of the leg, and mild shortness of breath. The patient is a poor historian. Denies any chest pain. Denies any palpitation. Denies any shortness of breath. PAST MEDICAL HISTORY: Past history significant for hypertension, diabetes, rheumatoid arthritis, hemorrhoidectomy, history of fracture of shoulder recently and decided to treat conservatively. PREVIOUS CARDIAC WORKUP: As follows; the patient had echocardiography done on 07/12/2017, that showed a normal LV function, diastolic dysfunction grade 1, moderate aortic regurgitation, moderate mitral regurgitation. There is mild tricuspid regurgitation. RV systolic pressure 47, calculated ejection fraction 60%. SOCIAL HISTORY: Denies any smoking. Denies any history of alcohol abuse. CURRENT MEDICATIONS: The patient is taking at home; amlodipine, vitamin B complex, metoprolol, losartan, lidocaine, glipizide, Lasix, furosemide, and Lexapro. REVIEW OF SYSTEMS: As per HPI. PHYSICAL EXAMINATION: VITAL SIGNS: Temperature afebrile, heart rate 59, blood pressure 167/73. HEENT: PERRLA. Extraocular muscles intact. NECK: Supple. No carotid bruit. No thyromegaly. CHEST: Clear to auscultation. HEART: S1 and S2 regular. ABDOMEN: Soft. EXTREMITIES: Clubbing and cyanosis negative. LABORATORY DATA: WBC 9.9, hemoglobin 7, hematocrit 21.3, and platelet count 492. Chemistry shows sodium 134, potassium 4.5, chloride 99, carbon dioxide 27, anion gap of 13. BUN 28, creatinine 1.2. BNP 961. Troponin is 0.01. EKG showed sinus danielle, left axis deviation. IMPRESSION: Severe anemia, hemoglobin down to 7; history of echocardiogram, preserved left ventricular function, moderate mitral regurgitation, moderate aortic regurgitation; dementia; history of fracture of shoulder, decided to treat medically; mildly elevated BNP. RECOMMENDATION: Continue anemia workup with 2 units of packed RBC. Continue gentle diuretics. Supplement electrolytes as needed. We will resume antihypertensive medication. Lipid profile, TSH, hemoglobin A1c. Most likely, the symptoms are secondary to severe anemia. Previous report reviewed. The patient is anemic, but on 07/21/2017, the patient had hemoglobin of 9.4 to 10, now significantly dropped. We will send anemia workup as well as transfusion. Thank you, Dr. Peña for providing us the opportunity in taking care of the patient, Nova Broderick. Faheem Payne MD
--- NOTE | 2018-01-25 01:51 | PN ---
DATE: 01/24/2018 SUBJECTIVE: The patient is an 87-year-old female. The patient was seen and examined on the bedside on . Daughter was sitting on the bedside also. Still having swelling of the left upper extremity and both lower extremities. No nausea or vomiting. No headache. No dizziness. No chest pain. No palpitation. No hematuria. No hematochezia. PHYSICAL EXAMINATION: VITAL SIGNS: Temperature 98.6, heart rate 59, blood pressure 167/73. HEENT: Head normocephalic, atraumatic. Eyes PERRLA. Extraocular muscles intact. Conjunctivae clear. Nose patent. Mucous membrane moist. NECK: Supple. No carotid bruit. No JVD or thyromegaly. CHEST: Bilaterally symmetrical. HEART: S1 and S2 positive. LUNGS: Clear to auscultation. ABDOMEN: Soft, nontender. No organomegaly. EXTREMITIES: No clubbing or cyanosis, but still has swelling of the both legs and right upper extremity is swollen also. NEUROLOGICAL: The patient is awake and alert. Moving all 4 extremities. No focal deficits. LABORATORY DATA: White blood cells 9.9, hemoglobin 7, hematocrit 21.3, platelets 492. Sodium 134, potassium 4.5, BUN 28, creatinine 1.2, BNP 961. EKG shows sinus bradycardia. ASSESSMENT AND PLAN: Ms. Nova Broderick, severe anemia, hemoglobin 7; history of echocardiography, preserved left ventricular function, moderate mitral regurgitation, moderate aortic regurgitation; dementia; history of fracture of the right shoulder, decided to treat medically. Mildly elevated BNP. Continue anemia workup and with 2 units of packed rbc's as per mill feeder. Continue gentle diuresis. Supplement of the electrolytes. We will repeat labs. Discussion done with the patient's daughter. The patient has history of hypertension; diabetes mellitus; rheumatoid arthritis; hemorrhoidectomy; history of fracture of the shoulder, treated conservatively; swelling of the leg; exacerbation of congestive heart failure. Continue present treatment. Repeat labs. Gastrointestinal, deep venous thrombosis prophylaxis. We will follow up. Stephani Peña MD
--- NOTE | 2018-01-25 07:13 | CP.PCM.PN ---
Subjective - Date & Time of Evaluation Date of Evaluation: 01/25/18 Time of Evaluation: 06:25 - Subjective Subjective: Lying in bed, no distress, awake,alert, daughter at bedside Reason for consultation and follow up: Cardiac evaluation for possible CHF, brought to the ER due to swelling of right arm and leg edema. History of diabetes, dementia, hypertension,hyperlipidemia, history of fall with right shoulder fracture treated medically. Seen and examined by me and Dr. Payne Objective - Vital Signs/Intake and Output Vital Signs (last 24 hours): Temp Pulse Resp BP Pulse Ox 98.3 F 52 L 19 131/69 97 01/24/18 16:41 01/24/18 18:00 01/24/18 16:41 01/24/18 17:39 01/24/18 16:41 - Medications Medications: Current Medications Amlodipine Besylate (Norvasc) 10 mg PO DAILY [facility] Escitalopram Oxalate (Lexapro) 5 mg PO DAILY [facility] Last Admin: 01/24/18 09:40 Dose: 5 mg Ferrous Gluconate (Fergon) 324 mg PO TID [facility] Last Admin: 01/24/18 17:30 Dose: 324 mg Furosemide (Lasix) 20 mg PO DAILY [facility] Last Admin: 01/24/18 09:40 Dose: 20 mg Glipizide (Glucotrol) 5 mg PO DAILY [facility] Last Admin: 01/24/18 09:40 Dose: 5 mg Hydrochlorothiazide (Microzide) 12.5 mg PO DAILY [facility] Last Admin: 01/24/18 09:41 Dose: 12.5 mg Insulin Human Regular (Humulin R Low) 0 units SC ACHS [facility] PRN Reason: Protocol Last Admin: 01/24/18 23:54 Dose: Not Given Losartan Potassium (Cozaar) 50 mg PO DAILY [facility] Last Admin: 01/24/18 09:41 Dose: 50 mg Metoprolol Tartrate (Lopressor) 25 mg PO BID [facility] Last Admin: 01/24/18 17:30 Dose: 25 mg Non-Formulary Medication (Lidocaine [Lidocare]) 1 each TP Q12 [facility] Last Admin: 01/24/18 23:17 Dose: Not Given Vitamin B Complex/Vit C/Folic Acid (Nephro-Andrae) 1 tab PO DAILY [facility] Last Admin: 01/24/18 09:40 Dose: 1 tab - Labs Labs: 01/24/18 11:30 PT 11.2 SECONDS (9.4-12.5) 01/23/18 21:34 INR 0.98 (0.93-1.08) 01/23/18 21:34 - Constitutional Appears: No Acute Distress - Eye Exam Eye Exam: Normal appearance - ENT Exam ENT Exam: Mucous Membranes Moist - Respiratory Exam Respiratory Exam: Clear to Ausculation Bilateral, NORMAL BREATHING PATTERN - Cardiovascular Exam Cardiovascular Exam: Bradycardia, +S1, +S2 Additional comments: Telemetry 52/min - GI/Abdominal Exam GI & Abdominal Exam: Soft, Normal Bowel Sounds - Extremities Exam Additional comments: 1+edema right arm limited movement - Neurological Exam Neurological Exam: Alert, Awake, Oriented x3 - Psychiatric Exam Psychiatric exam: Normal Affect - Skin Skin Exam: Dry, Normal Color, Warm Assessment and Plan - Assessment and Plan (Free Text) Assessment: An 87 year old female who was brought to the ER due to due to swelling of right arm and leg edema. History of diabetes, dementia, hypertension,hyperlipidemia, history of fall with right shoulder fracture treated medically. Initial hemoglobin low and transfused 2 units of PRBC. Plan: Daughter wanted her mom to be transferred back to facility Denies shortness of breath Troponin normal BNP elevated but not that high On Lasix IV Less edema on lower extremities and right arm Stable hemoglobin/hematocrit (10/29.3) Post transfusion of 2 units PRBC Cardiac status stable Heart rate and blood pressure controlled continue current medications Continue current treatment Discharge planning Will follow up Plan and treatment discussed with Dr. Payne
[2018-01-25 07:20] LABS: BASO # 0.02 K/mm3 (0.0-2.0); BASO % 0.2 % (0.0-3.0); EOS # 0.2 (0.0-0.7); EOS % 2.5 % (1.5-5.0); GRAN # 5.31 (1.4-6.5); GRAN % 64.4 % (50.0-68.0); HEMOGLOBIN 10.1 g/dL (12.0-16.0); LYMPH # 2.1 (1.2-3.4); LYMPH % 25.5 % (22.0-35.0); MEAN CELL VOLUME 85.1 fl (80.0-105.0); MEAN CORPUSCULAR HEMOGLOBIN 28.9 pg (25.0-35.0); MEAN PLATELET VOLUME 9.3 fl (7.0-11.0); MONO # 0.6 (0.1-0.6); MONO % 7.4 % (1.0-6.0); RBC 3.49 10^6/uL (3.5-6.1); RED CELL DISTRIBUTION WIDTH 15.7 % (11.5-14.5); WHITE BLOOD COUNT 8.3 10^3/ul (4.5-11.0)
[2018-01-25 07:35] LABS: ALB/GLOB RATIO 1.1 (1.1-1.8); ALBUMIN 2.9 g/dL (3.0-4.8); CALCIUM 8.4 mg/dL (8.4-10.5)
[2018-01-25] MEDS: Insulin Reg-LOW-Coverage SC SCH ×2 (08:51→11:35)
[2018-01-25] MEDS ORDERED: Potassium Chloride 20 mEq ER Tab PO ONE (09:02)
[2018-01-25] MEDS: Multivitamin Vitamin B Complex (Nephro-Vite) Tab PO SCH (10:11)
[2018-01-25 10:20] VITALS: BP 130/67; PULSE 63
[2018-01-25] MEDS ORDERED: Lidocaine 5% Patch TD SCH (10:30)
--- NOTE | 2018-01-25 11:41 | HP ---
CHIEF COMPLAINT: Swelling of the right upper extremity and both lower extremities. HISTORY OF PRESENT ILLNESS: Ms. Nova Broderick is an 87-year-old female with past medical history of diabetes mellitus, hypertension, heart valve regurgitation, came to the emergency room . Actually, patient was getting rehab there. Nursing staff from there called that right upper extremity is swollen and both lower extremities are shiny, red, and swollen and daughter brought the patient to the Emergency Room. The patient states that she had right shoulder fracture four weeks ago. Daughter stated that the patient had a normal ultrasonography, venous Doppler two weeks ago. The patient was taking Augmentin for right lower leg cellulitis two weeks ago. The patient denies shortness of breath. No chest pain. No abdominal pain. No nausea, vomiting, diarrhea. No hematuria or hematochezia. PAST MEDICAL HISTORY: As above, hypertension and diabetes mellitus type 2. FAMILY HISTORY: Father and mother, noncontributory. HABITS: Never smoked. No drugs. No ethanol. ALLERGIES: PATIENT IS NOT ALLERGIC WITH ANY MEDICATIONS. HOME MEDICATIONS: Hydrochlorothiazide, Glucotrol, Lexapro, Fergon, Lasix, insulin, lidocaine, metoprolol. REVIEW OF SYSTEMS: The patient was seen and examined at the bedside. Looking comfortable. No hematuria or hematochezia. No headache. No dizziness. No shortness of breath. No chest pain, no palpitation. No abdominal pain. Having a bit of sleep problem. Pain in the right upper extremity and both knees. PHYSICAL EXAMINATION: VITAL SIGNS: Temperature 97.8, pulse 65, respiratory rate 18, blood pressure 117/70, pulse oximetry 99. HEENT: Head normocephalic, atraumatic. Eyes PERRLA. Extraocular muscles intact. Conjunctivae clear. Nose patent. Mucous membrane moist. NECK: Supple. No carotid bruit. No JVD or thyromegaly. CHEST: Bilaterally symmetrical. HEART: S1 and S2 positive. LUNGS: Clear to auscultation. ABDOMEN: Soft. Bowel sounds positive. No organomegaly. EXTREMITIES: No edema. No cyanosis. NEUROLOGICAL: The patient is awake and alert. Moving all four extremities except right upper extremity. Neurological deficit. LABORATORY DATA: White blood cells 9.9, hemoglobin 7.3, hematocrit 21.3, platelets 492,000. BUN 34, creatinine 4.5, glucose 78. creatinine 1.2, glucose 108. ASSESSMENT AND PLAN: Ms. Nova Broderick is an 87-year-old lady with renal insufficiency, looks like she is dehydrated, iron-deficiency anemia, need blood transfusion, thrombocytosis, history of hypothyroidism, coronary artery disease, congestive heart failure, uncontrolled diabetes mellitus. GI and DVT prophylaxis. Consultation with Dr. Payne and Dr. Tejinder Maldonado. Repeat labs. Continue present treatment. We will follow up. Stephani Peña MD [facility] # [id number] MTDD
[2018-01-26] MEDS ORDERED: Potassium Chloride 20 mEq ER Tab PO SCH (08:00)
--- NOTE | 2018-02-18 23:53 | DS ---
date 01/25/18 Copied To: Stephani Peña MD Attending MD: Stephani Peña MD CHIEF COMPLAINTS: Swelling of the right upper extremity and both lower extremities. HISTORY OF PRESENT ILLNESS: Ms. Nova Broderick, 87-year-old female with past medical history of diabetes mellitus, hypertension, heart valve regurgitation. Came to the emergency room. Actually, the patient was getting rehab in [facility] and I was called that the patient's right upper extremity is swollen and both lower extremities are shiny red and swollen and daughter brought the patient to the emergency room. The patient states that she had right shoulder fracture 4 weeks ago. Daughter stated that the patient had normal ultrasonography. Had venous Doppler 2 weeks ago in the rehab place, was getting Augmentin for the leg cellulitis. No shortness of breath. No fever. No chills. We admitted the patient, did electrocardiography, chest x-ray. Seen by Dr. Payne. Dr. Tejinder Maldonado read the extremity ultrasound. There is no DVT. Got antibiotics, improved. Discharged back to [facility]. We will follow up there. PAST MEDICAL HISTORY: As above, hypertension, diabetes mellitus, dementia. FAMILY HISTORY: Father and mother, noncontributory. HABITS: Never smoked, no drugs. No ethanol. ALLERGIES: THE PATIENT IS NOT ALLERGIC WITH ANY MEDICATIONS. HOME MEDICATIONS: Reviewed by me. REVIEW OF SYSTEMS: The patient was seen and examined on bedside, looking comfortable. No nausea, vomiting, diarrhea. No hematuria or hematochezia. Swelling of the leg is better. No headache. No dizziness. No fever. No chills. PHYSICAL EXAMINATION: VITAL SIGNS: Temperature 98.3, pulse 52, respiratory rate 18, blood pressure , pulse oximetry 97. HEENT: Head normocephalic, atraumatic. Eyes PERRLA. Extraocular muscles intact. Conjunctivae clear. Nose patent. Mucous membrane moist. NECK: Supple. No carotid bruit. No JVD or thyromegaly. CHEST: Bilaterally symmetrical. HEART: S1 and S2 positive. LUNGS: Clear to auscultation. ABDOMEN: Soft. Bowel sounds positive. No organomegaly. EXTREMITIES: No edema. No cyanosis. NEUROLOGICAL: The patient is awake and alert. Moving all 4 extremities. No focal deficits. MEDICATIONS: Norvasc, Lexapro, iron, Lasix, Glucotrol, hydrochlorothiazide, insulin, losartan, metoprolol, Lidocaine, vitamin B complex. LABORATORY DATA: White blood cells 8.4, hemoglobin 10, hematocrit 29.3, platelets 395. ASSESSMENT AND PLAN: Ms. Nova Broderick, 87-year-old lady with anemia. Came to the emergency room due to swelling of the right upper extremity and both legs, red, warm; history of diabetes mellitus; advanced dementia; hypertension; hypercholesterolemia; history of fall; right shoulder fracture, treated medically; anemia, got 2 units of packed RBC. Family is rushing to transfer the patient back to that rehabilitation. The patient is feeling better. Sent back with antibiotics and by changing the medication. We will follow up there. Stephani Peña MD MTDD
--- NOTE | 2018-02-21 09:26 | PQF ---
PROVIDER RESPONSE TEXT: CHF secondary to Diastolic Dysfunction, Acute on chronic. REVIEWER QUERY TEXT: CHF Acuity and Type Congestive Heart Failure is documented in the Medical Record. Please document the type and acuity (in cludes probable or suspected) Such as: Type: -- Systolic -- Diastolic -- Combined -- Other, please specify Acuity: -- Acute -- Chronic -- Acute on chronic -- Other, please specify Also please document the underlying cause of the CHF (includes probable or suspected) The patient's Clinical Indicators include: Hx. CHF, BNP 961, tx. with Lasix 40 IV on admission. Please clarify acuity and type of CHF, POA. Than k you. Query created by: Staci Berumen on 02/03/2018 12:09 PM Electronically signed by: Faheem Payne 02/21/2018 9:22 AM
== END 2018-01-25 18:35 | DRG 811 ==
LOC: ED 20:47 → ERH 23:42 → 3RSO 01-24 01:27
PROVIDERS: ADMIT Internal Medicine; ATTEND Internal Medicine
PROC: 30233N1 Transfusion of Nonautologous Red Blood Cells into Peripheral Vein, Percutaneous Approach (ICD-10-PCS; principal; 2018-01-23)
DX: D50.9 Iron deficiency anemia, unspecified (principal); I50.33 Acute on chronic diastolic (congestive) heart failure; E86.0 Dehydration; I08.3 Combined rheumatic disorders of mitral, aortic and tricuspid valves; I11.0 Hypertensive heart disease with heart failure; E03.9 Hypothyroidism, unspecified; E78.5 Hyperlipidemia, unspecified; F03.90 Unspecified dementia, unspecified severity, without behavioral disturbance, psychotic disturbance, mood disturbance, and anxiety; I25.10 Atherosclerotic heart disease of native coronary artery without angina pectoris; M06.9 Rheumatoid arthritis, unspecified; N28.9 Disorder of kidney and ureter, unspecified; D47.3 Essential (hemorrhagic) thrombocythemia; E11.65 Type 2 diabetes mellitus with hyperglycemia; S42.91XD Fracture of right shoulder girdle, part unspecified, subsequent encounter for fracture with routine healing; R40.2412 Glasgow coma scale score 13-15, at arrival to emergency department

== ENCOUNTER 2018-04-20 13:30 | Inpatient (IN) | payer MEDICARE, OTHER ==
--- NOTE | 2018-04-20 13:47 | ED PDOC ---
Arrival/HPI - General Time Seen by Provider: 04/20/18 13:47 Historian: Patient - History of Present Illness Narrative History of Present Illness (Text): 04/20/18 13:47 87 year old female, with past medical history of diabetes, dementia, HTN, and heart valve regurgitation, [facility] for evaluation of elevated blood pressure prior to arrival. Patient was reportedly "not feeling well" with an elevated blood pressure of 224/104 at the jail when her PMD, Dr. Peña was subsequently informed. Upon evaluation by Dr. Peña, patient reportedly complained of headache and dizziness associated with nausea. Dr. Peña recommended administration of Clonidine at the jail however, since jail did not have the desired medications, Dr. Peña subsequently referred patient to the Emergency Department for further evaluation. Upon arrival to the Emergency Department, patient informs nausea but denies any headache or dizziness. Patient denies any other medical complaints. Patient denies any fever, chills, vomiting, diarrhea, abdominal pain, chest pain, shortness of breath, neck pain, back pain, dysuria or any other complaints. PMD: Dr. Peña Time/Duration: Prior to Arrival Symptom Onset: Gradual Symptom Course: Unchanged Activities at Onset: Light Context: Other (long term) Past Medical History - Provider Review Nursing Documentation Reviewed: Yes - Infectious Disease Hx of Infectious Diseases: None - Tetanus Immunization Tetanus Immunization: Unknown - Cardiac Hx Cardiac Disorders: Yes Hx Hypertension: Yes - Pulmonary Hx Respiratory Disorders: No - Neurological Hx Neurological Disorder: Yes Hx Dementia: Yes - HEENT Hx HEENT Disorder: No - Renal Hx Renal Disorder: No - Endocrine/Metabolic Hx Diabetes Mellitus Type 2: Yes - Hematological/Oncological Hx Blood Disorders: Yes Hx Anemia: Yes - Integumentary Hx Dermatological Disorder: No - Musculoskeletal/Rheumatological Hx Arthritis: Yes (rheumatoid) - Gastrointestinal Hx Gastrointestinal Disorders: No - Genitourinary/Gynecological Hx Genitourinary Disorders: No - Psychiatric Hx Psychophysiologic Disorder: No Hx Anxiety: Yes Hx Depression: No Hx Emotional Abuse: No Hx Hallucinations: Yes Hx Physical Abuse: No Hx Substance Use: No - Past Surgical History Past Surgical History: No Previous - Surgical History Other/Comment: hemmoroidectomy - Anesthesia Hx Anesthesia: Yes Hx Anesthesia Reactions: No Hx Malignant Hyperthermia: No - Suicidal Assessment Feels Threatened In Home Enviroment: No Family/Social History - Physician Review Nursing Documentation Reviewed: Yes Family/Social History: No Known Family HX Smoking Status: Never Smoked Hx Alcohol Use: No Hx Substance Use: No Hx Substance Use Treatment: No Allergies/Home Meds Allergies/Adverse Reactions: Allergies No Known Allergies Allergy (Verified 07/20/17 20:56) Home Medications: Home Meds Medication Instructions Recorded Confirmed Losartan/Hydrochlorothiazide 1 tab PO DAILY 06/09/14 01/23/18 [Losartan-Hctz 50-12.5 mg Tab] GlipiZIDE [Glucotrol] 5 mg PO DAILY 08/30/15 01/23/18 Escitalopram [Lexapro] 5 mg PO DAILY 06/14/16 01/23/18 Ferrous Gluconate [Fergon] 324 mg PO TID 01/23/18 01/23/18 Furosemide [Lasix] 20 mg PO DAILY 01/23/18 01/23/18 Insulin Human Regular [HumuLIN R] 100 units SC ACHS 01/23/18 01/23/18 Lidocaine [Lidocare] 1 each TP Q12 01/23/18 01/23/18 Metoprolol Tartrate [Lopressor] 25 mg PO BID 01/23/18 01/23/18 Vit B Comp No.3/Folic/C/Biotin 1 tab PO DAILY 01/23/18 01/23/18 [Ricarda-Andrae Rx Tablet] amLODIPine [Norvasc] 5 mg PO DAILY 01/23/18 01/23/18 Review of Systems - Physician Review All systems were reviewed & negative as marked: Yes - Review of Systems Constitutional: absent: Fevers Respiratory: absent: SOB, Cough Cardiovascular: absent: Chest Pain, MORALES Gastrointestinal: Nausea. absent: Abdominal Pain, Diarrhea, Vomiting Genitourinary Female: absent: Dysuria, Urine Output Changes Musculoskeletal: absent: Back Pain, Neck Pain Neurological: absent: Headache, Dizziness Physical Exam Vital Signs Reviewed: Yes Vital Signs Temp Pulse Resp BP Pulse Ox 04/20/18 13:42 98.4 F 64 18 224/104 H 98 Temperature: Afebrile Blood Pressure: Hypertensive Pulse: Regular Respiratory Rate: Normal Appearance: Positive for: Well-Appearing, Non-Toxic, Comfortable Pain Distress: None Mental Status: Positive for: Alert and Oriented X 3 - Systems Exam Head: Present: Atraumatic, Normocephalic Pupils: Present: PERRL Extroacular Muscles: Present: EOMI Conjunctiva: Present: Normal Mouth: Present: Moist Mucous Membranes Neck: Present: Normal Range of Motion Respiratory/Chest: Present: Clear to Auscultation, Good Air Exchange. No: Respiratory Distress, Accessory Muscle Use Cardiovascular: Present: Regular Rate and Rhythm, Normal S1, S2. No: Murmurs Abdomen: Present: Tenderness (Tenderness to palpation to suprapubic region.). No: Distention, Peritoneal Signs Back: Present: Normal Inspection Upper Extremity: Present: Normal Inspection. No: Cyanosis, Edema Lower Extremity: Present: Normal Inspection. No: Edema Neurological: Present: GCS=15, CN II-XII Intact, Speech Normal Skin: Present: Warm, Dry, Normal Color. No: Rashes Psychiatric: Present: Alert, Oriented x 3, Normal Insight, Normal Concentration Medical Decision Making ED Course and Treatment: 04/20/18 13:55 Impression: 87 year old female presents to the Emergency Department complaining of nausea. Plan: -- CT of Head -- EKG -- Labs -- Chest X-ray -- Urinalysis -- Reassess and disposition Prior Visits: Notes and results from previous visits were reviewed. Progress Notes: BP on arrival to ED is 186/94. 04/20/18 13:55 Dr. Peña at bedside, who requests cardiac workup for patient and admission under her service. Requests Dr. Payne and Dr. Queen on consult. CT and CXR were negative as interpreted by rad. BNP elevated 3780, Hgb 10.8, BUN 34 elevated and creatinine mildly elevated at 1.3. 16:00 Patient reassessed. She has no complaints. Results of w/u and POC d/w patient and family who are agreeable w/POC. - Lab Interpretations I have reviewed the lab results: Yes - RAD Interpretation Esol Teacher Assistant: Radiologist - Scribe Statement The provider has reviewed the documentation as recorded by the Scribe Nilo Cisneros. All medical record entries made by the Scribe were at my direction and personally dictated by me. I have reviewed the chart and agree that the record accurately reflects my personal performance of the history, physical exam, medical decision making, and the department course for this patient. I have also personally directed, reviewed, and agree with the discharge instructions and disposition. Disposition/Present on Arrival - Present on Arrival Any Indicators Present on Arrival: No History of DVT/PE: No History of Uncontrolled Diabetes: Yes Urinary Catheter: No History Surgical Site Infection Following: None - Disposition Have Diagnosis and Disposition been Completed?: Yes Diagnosis: Hypertension, Dizziness, Elevated brain natriuretic peptide (BNP) level Disposition: HOSPITALIZED Disposition Time: 14:42 Patient Plan: Observation Patient Problems: Current Active Problems Problem Status Onset Dizziness Acute Elevated brain natriuretic peptide (BNP) level Acute Hypertension Acute Condition: STABLE
[2018-04-20 14:40] LABS: BASO # 0.02 K/mm3 (0.0-2.0); BASO % 0.2 % (0.0-3.0); EOS # 0.3 (0.0-0.7); EOS % 2.7 % (1.5-5.0); GRAN # 7.96 (1.4-6.5); HEMOGLOBIN 10.8 g/dL (12.0-16.0); LYMPH % 18.5 % (22.0-35.0); MEAN CELL VOLUME 85.8 fl (80.0-105.0); MEAN CORPUSCULAR HEMOGLOBIN 28.5 pg (25.0-35.0); MEAN CORPUSCULAR HGB CONC 33.2 g/dl (31.0-37.0); MEAN PLATELET VOLUME 10.4 fl (7.0-11.0); MONO # 0.6 (0.1-0.6); MONO % 5.6 % (1.0-6.0); RBC 3.79 10^6/uL (3.5-6.1); RED CELL DISTRIBUTION WIDTH 14.5 % (11.5-14.5); URINE BILIRUBIN NEGATIVE (NEGATIVE); URINE BLOOD SMALL (NEGATIVE); URINE GLUCOSE (UA) NEGATIVE (NEGATIVE); URINE LEUKOCYTE ESTERASE NEGATIVE Leu/uL (NEGATIVE); URINE PROTEIN >=300 mg/dL (<30 mg/dL); URINE UROBILINOGEN 0.2 E.U./dL (<1 E.U./dL); WHITE BLOOD COUNT 10.9 10^3/ul (4.5-11.0)
[2018-04-20 14:42] LABS: URINE APPEARANCE CLEAR (CLEAR); URINE COLOR YELLOW (YELLOW)
[2018-04-20 14:51] LABS: ALB/GLOB RATIO 1.1 (1.1-1.8); ALBUMIN 3.5 g/dL (3.0-4.8); ALT/SGPT 15 U/L (7-56); AST/SGOT 34 U/L (14-36); BLOOD UREA NITROGEN 34 mg/dL (7-21); CALCIUM 9.1 mg/dL (8.4-10.5); GFR NON-AFRICAN AMERICAN 39; LIPASE 262 U/L (23-300)
[2018-04-20 14:54] LABS: URINE AMORPHOUS SEDIMENT FEW; URINE BACTERIA MOD (NEG); URINE FINE GRANULAR CAST 0 - 2 /hpf (0-2); URINE HYALINE CAST 0 - 2 /hpf
[2018-04-20 15:08] LABS: B-TYPE NATRIURETIC PEPTIDE 3780 pg/mL (0-450); TROPONIN I < 0.01 ng/mL
--- NOTE | 2018-04-20 16:15 | RAD ---
Date of service: 04/20/2018 HISTORY: HTN, dizziness COMPARISON: 01/23/2018 FINDINGS: LUNGS: No active pulmonary disease. PLEURA: No significant pleural effusion identified, no pneumothorax apparent. CARDIOVASCULAR: Mild cardiomegaly and aortic tortuosity OSSEOUS STRUCTURES: No significant abnormalities. VISUALIZED UPPER ABDOMEN: Normal. OTHER FINDINGS: None. IMPRESSION: No active disease.
--- NOTE | 2018-04-20 16:39 | CT ---
Date of service: 04/20/2018 PROCEDURE: CT HEAD WITHOUT CONTRAST. HISTORY: htn/dizziness COMPARISON: None available. TECHNIQUE: Axial computed tomography images were obtained through the head/brain without intravenous contrast. Radiation dose: Total exam DLP = 803 mGy-cm. This CT exam was performed using one or more of the following dose reduction techniques: Automated exposure control, adjustment of the mA and/or kV according to patient size, and/or use of iterative reconstruction technique. FINDINGS: HEMORRHAGE: No intracranial hemorrhage. BRAIN: No mass effect or edema. Severe chronic microvascular changes are seen in the periventricular white matter. Mild atrophy VENTRICLES: Unremarkable. No hydrocephalus. CALVARIUM: Unremarkable. PARANASAL SINUSES: Unremarkable as visualized. No significant inflammatory changes. MASTOID AIR CELLS: Unremarkable as visualized. No inflammatory changes. OTHER FINDINGS: None. IMPRESSION: No acute intracranial findings
[2018-04-21 00:35] LABS: TROPONIN I < 0.01 ng/mL
[2018-04-21 07:07] LABS: MEAN CELL VOLUME 85.9 fl (80.0-105.0); MEAN CORPUSCULAR HEMOGLOBIN 28.2 pg (25.0-35.0); MEAN CORPUSCULAR HGB CONC 32.8 g/dl (31.0-37.0); MEAN PLATELET VOLUME 10.6 fl (7.0-11.0); RBC 3.19 10^6/uL (3.5-6.1); RED CELL DISTRIBUTION WIDTH 14.7 % (11.5-14.5); WHITE BLOOD COUNT 8.2 10^3/ul (4.5-11.0)
[2018-04-21 07:22] LABS: BLOOD UREA NITROGEN 31 mg/dL (7-21); CALCIUM 8.5 mg/dL (8.4-10.5); GFR NON-AFRICAN AMERICAN 39; HDL CHOLESTEROL 37 mg/dL (29-60); IRON 75 ug/dL (45-180)
[2018-04-21 07:32] LABS: LDL CHOLESTEROL 62 mg/dL (0-129)
[2018-04-21 07:38] LABS: % IRON SATURATION 33 % (20-55); TOTAL IRON BINDING CAPACITY 230 ug/dL (265-497)
[2018-04-21] MEDS: Insulin Reg-MEDIUM-Coverage SC SCH ×4 (09:10→21:46)
[2018-04-21 09:23] VITALS: BMI 25.4
[2018-04-21] MEDS: Multivitamin Vitamin B Complex (Nephro-Vite) Tab PO SCH (09:27)
[2018-04-21] MEDS: LIDOCAINE TP SCH ×2 (09:30→21:46)
[2018-04-21] MEDS ORDERED: Non Formulary Medication (Losartan/Hydrochlorothiazide [Losartan-Hctz 50-12.5 Mg Tab] 1 TA PO SCH (10:00)
--- NOTE | 2018-04-21 10:12 | CARD ---
APPROVED REPORT Date of service: 04/20/2018 EKG Measurement Heart [id number] <Conclusion> Normal sinus rhythm Left anterior Derek-Block. Abnormal ECG
[2018-04-21 10:14] LABS: TROPONIN I < 0.01 ng/mL
[2018-04-21 13:44] LABS: FOLATE > 20.0 ng/mL
[2018-04-21] MEDS: guaiFENesin DM 100 mg-10 mg/5 ml UD PO PRN (17:20)
[2018-04-21] MEDS ORDERED: Albuterol-Ipratrop 3 mg / 0.5 (3 ml) UD IH STA (17:56)
[2018-04-21] MEDS: Albuterol-Ipratrop 3 mg / 0.5 (3 ml) UD IH SCH (19:40)
[2018-04-21] MEDS ORDERED: Albuterol-Ipratrop 3 mg / 0.5 (3 ml) UD IH SCH (20:00)
--- NOTE | 2018-04-21 20:04 | CON ---
DATE: 04/21/2018 SEX: Female. AGE: 87 REASON FOR CONSULTATION: Cardiac evaluation, uncontrolled hypertension. BRIEF CLINICAL HISTORY: This is an 87-year-old female with past medical history of diabetes, hypertension, hyperlipidemia who was in the group home found to be feeling not good, blood pressure was checked and found to be 224/104, brought here. Denies any chest pain, shortness of breath or any palpitation. Daughter is at the bedside. PAST HISTORY: Significant for hypertension, diabetes, rheumatoid arthritis, hemorrhoidectomy, history of fracture of the shoulder recently, treated conservatively. PREVIOUS CARDIAC WORKUP: As follows: The patient had echocardiography done on 07/12/2017 shows normal LV function, diastolic dysfunction, moderate aortic regurgitation, moderate mitral regurgitation, moderate tricuspid regurgitation, RV systolic pressure of 47, calculated ejection fraction of 60%. PAST SURGICAL HISTORY: Significant for hemorrhoidectomy, history of fracture of the shoulder recently and decided to treat it conservatively. SOCIAL HISTORY: Denies any smoking. Denies any history of alcohol abuse. CURRENT MEDICATIONS: The patient was at home taking amlodipine 5 mg daily, metoprolol tartarate 25 p.o. b.i.d., losartan/hydrochlorothiazide 1 tablet 50/12.5 mg daily, glipizide, Lasix, Lexapro. REVIEW OF SYSTEMS: As per HPI. OBJECTIVE VITAL SIGNS: Height of the patient 5 feet, weight of the patient 130 pounds, body mass index 25.4 kg per sq m. Rest of the examination of vitals, temperature afebrile, heart rate 61, blood pressure 173/78. HEENT: PERRLA. Extraocular muscles intact. NECK: Supple. No carotid bruits or thyromegaly. CHEST: Clear to auscultation. HEART: S1 and S2, regular. ABDOMEN: Soft. EXTREMITIES: Clubbing and cyanosis negative. LABORATORY DATA: EKG shows normal sinus, left axis deviation. Blood workup as follows: WBC 8.8, hemoglobin 9, hematocrit 27.4, platelet count 294. Chemistries shows sodium 135, potassium 4, chloride 102, carbon dioxide 29, anion gap of 8. BUN 13, creatinine 1.3. Troponin 0.01, negative. IMPRESSION: An 87-year-old female with past medical history significant for type 2 diabetes, hypertension, hyperlipidemia, mild mitral regurgitation, aortic regurgitation, admitted with uncontrolled hypertension 214/114. RECOMMENDATION: We will aggressively control the blood pressure, resume back amlodipine to 10 mg daily increase, metoprolol 25 p.o. b.i.d., and increase losartan 100 mg with hydrochlorothiazide. Lasix started by Dr Mccullough, we will continue. Followup. We are going to monitor one more set of troponin to see any evidence of GA; if not, we will discontinue telemetry. Aggressive medical treatment discussed with the daughter. We will follow with you. Further recommendation will be made according to the hospital course. We will get lipid profile, TSH, hemoglobin A1c and second set of troponin. Discussed with the daughter. Thank you, Dr. Peña, for providing us the opportunity in taking care of the patient. Faheem Payne MD
[2018-04-21] MEDS: Enoxaparin 30 mg Syringe SC SCH (21:36)
[2018-04-22] MEDS: Albuterol-Ipratrop 3 mg / 0.5 (3 ml) UD IH SCH ×4 (01:35→20:32)
[2018-04-22] MEDS: Pantoprazole 40 mg EC Tab PO SCH (06:11)
[2018-04-22] MEDS: Insulin Reg-MEDIUM-Coverage SC SCH ×4 (08:40→21:20)
[2018-04-22] MEDS: guaiFENesin DM 100 mg-10 mg/5 ml UD PO PRN ×2 (08:46→23:04)
--- NOTE | 2018-04-22 09:14 | HP ---
date 04/21/18 CHIEF COMPLAINT: Headache, dizziness. HISTORY OF PRESENT ILLNESS: Ms. Nova Broderick is an 87-year-old female with past medical history of diabetes mellitus, dementia, hypertension, heart valve regurgitation, is resident of [facility], was seen by me there, blood pressure was elevated 224/104 at the assisted and the patient was complaining of headache, dizziness, and nauseousness, then I recommended clonidine at the assisted. Since the assisted did not have the desired medication, so I decided to send patient to the Emergency Room before she has a stroke. Upon arrival in the Emergency Department, the patient is informing nausea and having headache and dizziness. The patient denies any other medical complaints. No fever, no chills. No chest pain. No palpitation. The patient has history of asthma and COPD. PAST MEDICAL HISTORY: Hypertension, dementia, diabetes mellitus type 2, anemia, rheumatoid arthritis, anxiety, history of hallucination, and hemorrhoidectomy. FAMILY HISTORY: Father and mother, noncontributory. HABITS: No smoking. No drugs. No ethanol. ALLERGIES: THE PATIENT IS NOT ALLERGIC WITH ANY MEDICATION. HOME MEDICATIONS: Losartan, glipizide, Lexapro, aspirin, Lasix, insulin, Lidoderm, metoprolol, and amlodipine. REVIEW OF SYSTEMS: The patient was seen and examined at the bedside. Daughter and another family member were sitting at the bedside. No fever. No chills. Today, her headache and dizziness a little bit better. No more nauseous, but having cough once in a while. No abdominal pain. No dysuria, no urinary output change. No back pain or neck pain. PHYSICAL EXAMINATION: VITAL SIGNS: Temperature 98.4, pulse 57, blood pressure 113/53, respiratory rate 18. HEENT: Head: Normocephalic, atraumatic. Eyes: PERRLA. Extraocular muscles intact. Conjunctivae clear. Nose patent. Mucous membrane moist. NECK: Supple. No carotid bruit. No JVD or thyromegaly. CHEST: Bilaterally symmetrical. HEART: S1 and S2 positive. LUNGS: Clear to auscultation. ABDOMEN: Soft. Bowel sounds positive. No organomegaly. EXTREMITIES: No edema. No cyanosis. NEUROLOGICAL: The patient is awake and alert. Moving all 4 extremities. No focal deficits. LABORATORY DATA: White blood cells 8.8, hemoglobin 9, hematocrit 27.4, platelets 294. Sodium 135, potassium 4, BUN 31, creatinine 1.6, glucose 137. Calcium 8.5. Lactate dehydrogenase 506. ASSESSMENT AND PLAN: Ms. Nova Broderick is an 87-year-old lady with anemia, renal insufficiency, hyperglycemia. CAT scan of the head is done. Came with accelerated hypertension, symptomatic with headache and dizziness, had mild mitral regurgitation and aortic regurgitation , aggressive control of the blood pressure. Getting amlodipine, metoprolol, losartan. We will order fasting lipid profile, hemoglobin A1c, and three sets of troponin as per Cardiology. Chest x-ray was done. Electrocardiogram done. Gastric and deep venous thrombosis prophylaxes. Discussion done with the patient's daughter. All questions answered. We will follow. Stephani Peña MD MTDD
--- NOTE | 2018-04-22 11:03 | CON ---
DATE: 04/21/2018 PULMONARY CONSULTATION REFERRING PHYSICIAN: Dr. Peña. REASON FOR CONSULTATION: Uncontrolled hypertension, may have sleep apnea syndrome, also has a history of cough and shortness of breath. HISTORY OF PRESENT ILLNESS: This is an 87-year-old female with past medical history of chronic bronchitis, Alzheimer type dementia, diabetes, hypertension, history of valvular heart disease. Because the patient was not feeling well, brought into ER, found to have systolic blood pressure 224. The patient was nauseated, had some cough, sputum production. No nausea, no vomiting. No diarrhea, leg pain or swelling. Admitted to have loud snoring, daytime sleepy and tired. PAST MEDICAL HISTORY: As per history of present illness. Also history of anemia, has rheumatoid arthritis. FAMILY HISTORY: No significant cardiopulmonary disease reported. SOCIAL HISTORY: No history of smoking or alcohol use. ALLERGIES: NONE KNOWN. MEDICATIONS: She is on hydralazine 10 mg q.i.d., Cozaar 100 mg daily, DuoNeb every 6 hours, ferrous gluconate 324 mg three times a day, glipizide 5 mg daily, insulin coverage, Lasix 20 mg daily, Lexapro 5 mg daily, lidocaine patch to the affected area, metoprolol tartrate 50 mg thrice a day, vitamin B complex daily, Norvasc 10 mg daily, Robitussin 5 mL every 4 hours p.r.n. being given. REVIEW OF SYSTEMS: On and off headache, rhinitis. Admitted to have loud snoring, daytime sleepy and tired, lately very forgetful, has some cough, shortness of breath, not feeling well. No nausea, no vomiting. No diarrhea, leg pain or leg swelling. PHYSICAL EXAMINATION: GENERAL: No acute distress. VITAL SIGNS: Temperature 98, heart rate 62, respiratory rate 80, blood pressure 136/63, pulse ox 96% on room air. HEENT: Small oral cavity. Crowded airway. NECK: Supple. No JVD. LUNGS: Have a few rhonchi and wheezing. HEART: S1 and S2. ABDOMEN: Soft, nontender. No organomegaly. EXTREMITIES: No edema. NEUROLOGICAL: Awake, alert, does follow simple command. LABORATORY DATA: Shows hemoglobin 9.0, hematocrit 27.4, WBC 8.2, platelet is 294. Sodium 135, potassium 4.0, chloride 102, bicarbonate 29, BUN 31, creatinine 1.3, glucose 96, hemoglobin A1c 6.1, calcium 8.5. LDH 506. Troponin less than 0.01. Cholesterol is 139. Vitamin B12 472. Folate more than 20. Urinalysis shows wbc's 1 to 3. CAT scan of the head was done in the ER, shows no acute intracranial finding. Chest x-ray shows no infiltrate or effusion. IMPRESSION AND PLAN: Probably has acute bronchitis and sinusitis, history of dementia, uncontrolled blood pressure, may have sleep apnea syndrome, history of valvular heart disease. Spoke to the patient's daughter at bedside. All the questions answered. Spoke to nursing staff, DuoNeb is added, cough suppressor is added. We will add doxycycline 100 mg twice a day. May add prednisone 20 mg daily very short course, gastric prophylaxis. We will add deep vein thrombosis prophylaxis. Outpatient need attended sleep study and PFT. Thank you and I will just follow with you. Faheem Queen MD
[2018-04-22] MEDS: Enoxaparin 30 mg Syringe SC SCH ×2 (11:18→21:19)
[2018-04-22] MEDS: Multivitamin Vitamin B Complex (Nephro-Vite) Tab PO SCH (11:20)
[2018-04-22] MEDS: LIDOCAINE TP SCH ×2 (11:21→21:24)
--- NOTE | 2018-04-22 23:12 | PN ---
DATE: 04/22/2018 SUBJECTIVE: The patient was seen and examined on the bedside, looking comfortable. Daughter was sitting on the bedside also. Swelling of the legs is getting better. Blood pressure was up and down. Last night, blood pressure was 180/90, then hydralazine was given and today in the morning, blood pressure is low. Family is not comfortable with this fluctuation of the blood pressure. We are still monitoring. Principal Law Clerk is on the case. No fever. No chills. No headache. No dizziness. No chest pain. No palpitation. PHYSICAL EXAMINATION: VITAL SIGNS: Blood pressure blood pressure right now is 115/60, maximum blood pressure was 179/89, pulse 56, respiratory rate 18, temperature 98.4. HEENT: Head normocephalic, atraumatic. Eyes PERRLA. Extraocular muscles intact. Conjunctivae clear. Nose patent. Mucous membrane moist. NECK: Supple. No carotid bruit. No JVD or thyromegaly. CHEST: Bilaterally symmetrical. HEART: S1 and S2 positive. LUNGS: Clear to auscultation. ABDOMEN: Soft. Bowel sounds positive. No organomegaly. EXTREMITIES: No edema. No cyanosis. NEUROLOGICAL: The patient is awake and alert. Moving all 4 extremities. No focal deficits. MEDICATIONS: Hydralazine, Cozaar, doxycycline, Fergon, Glucotrol, insulin, Lasix, Lexapro, Lidocaine, Lopressor, Lovenox, multivitamins, prednisone, Protonix, Zofran. LABORATORY DATA: White blood cells 8.3, hemoglobin 9.3, hematocrit 27.4, platelets 294. Glucose 252, 174. ASSESSMENT AND PLAN: Ms. Davie Bhatt, 87-year-old lady with anemia, hyperglycemia, hemoglobin A1c 6.1, uncontrolled hypertension, ranges up and down. Principal Law Clerk is on the case. Added hydralazine. We will observe 24 hours. CAT scan of the head and chest x-ray done, reviewed by me. As per Dr. Queen, the patient has acute bronchitis and sinusitis, history of dementia. She has valvular heart disease. Length of time discussion done with the patient's daughter. All questions answered. Getting antibiotics, prednisone. Gastrointestinal, deep venous thrombosis prophylaxis. Repeat labs. We will follow up. Stephani Peña MD
--- NOTE | 2018-04-23 01:40 | PN ---
DATE: 03/23/2018 PULMONARY PROGRESS NOTE REFERRING PHYSICIAN: Stephani Peña MD SUBJECTIVE: She is out of bed to chair, feels better. Apparently, CPAP was not placed on yesterday. Cough and shortness of breath are better. No nausea, no vomiting. No diarrhea. No leg pain or leg swelling. OBJECTIVE: GENERAL: In no acute distress. VITAL SIGNS: Temperature is 98, heart rate 70, respiratory rate is 18, blood pressure 114/55, pulse ox 94% on room air. HEENT: Moist mucous membranes. Small oral cavity. Crowded airway. NECK: Supple. No JVD. LUNGS: Prolonged expiratory phase. Wheezing is better. Rhonchi is gone. HEART: S1 and S2. ABDOMEN: Soft, nontender. No organomegaly. EXTREMITIES: No edema. NEUROLOGIC: Awake, alert, follows simple command, but confused. MEDICATIONS: She is on hydralazine 10 mg 4 times daily, Cozaar 100 mg daily, doxycycline 100 mg twice a day, DuoNeb every 6 hours, ferrous gluconate 324 mg 2 times a day, glipizide 5 mg daily, insulin coverage, Lasix 20 mg daily, Lexapro 5 mg daily, lidocaine patch at affected area, metoprolol tartrate 50 mg twice a day, Lovenox 30 mg subcu every 12 hours, multivitamins with nephro-vitamins 1 tablet daily, Norvasc 10 mg daily, prednisone 20 mg daily. Protonix 40 mg daily, Robitussin 5 ml every 4 hours p.r.n., Zofran p.r.n. basis. LABORATORY DATA: Reviewed. Blood sugar this morning is 262. IMPRESSION AND PLAN: Probably acute bronchitis, sinusitis, rule out chronic lung disease, dementia, uncontrolled blood pressure, which is better. May have sleep apnea syndrome, valvular heart disease. Spoke to the patient's family at bedside. All the questions answered. Also spoke to nursing staff and respiratory therapist. We are trying to place CPAP on tonight to see how she does. Continue prednisone, inhaled bronchodilator, vasodilator. Fall precaution. Thank you and we will follow with you. Faheem Queen MD
[2018-04-23] MEDS: Albuterol-Ipratrop 3 mg / 0.5 (3 ml) UD IH SCH ×3 (02:00→14:30)
[2018-04-23] MEDS: Pantoprazole 40 mg EC Tab PO SCH (05:22)
[2018-04-23 06:10] VITALS: O2SAT 95
[2018-04-23] MEDS: Insulin Reg-MEDIUM-Coverage SC SCH ×2 (08:08→16:10)
[2018-04-23 10:48] LABS: ALBUMIN 2.9 g/dL (3.0-4.8); CALCIUM 8.4 mg/dL (8.4-10.5)
[2018-04-23] MEDS: Multivitamin Vitamin B Complex (Nephro-Vite) Tab PO SCH (11:14)
[2018-04-23] MEDS: Enoxaparin 30 mg Syringe SC SCH (11:15)
[2018-04-23] MEDS: LIDOCAINE TP SCH (11:15)
[2018-04-23 13:54] VITALS: BP 146/68; RESP 18; TEMP 98.7
--- NOTE | 2018-04-23 15:06 | CP.PCM.PN ---
Subjective - Date & Time of Evaluation Date of Evaluation: 04/23/18 Time of Evaluation: 09:15 - Subjective Subjective: resting comfortably, NAD, no chest pain, no SOB, daughter at bedside Objective - Vital Signs/Intake and Output Vital Signs (last 24 hours): Temp Pulse Resp BP Pulse Ox 98.7 F 60 18 146/68 95 04/23/18 12:00 04/23/18 12:00 04/23/18 12:00 04/23/18 12:00 04/23/18 06:00 Intake and Output: 04/23/18 04/23/18 06:59 18:59 Intake Total 300 Output Total 1000 Balance -700 - Medications Medications: Current Medications Albuterol/Ipratropium (Duoneb 3 Mg/0.5 Mg (3 Ml) Ud) 3 ml IH [id number] [facility] Last Admin: 04/23/18 14:30 Dose: 3 ml Amlodipine Besylate (Norvasc) 10 mg PO DAILY [facility] Last Admin: 04/23/18 11:15 Dose: 10 mg Doxycycline Hyclate (Doryx) 100 mg PO Q12 [facility]; Protocol Last Admin: 04/23/18 11:13 Dose: 100 mg Enoxaparin Sodium (Lovenox) 30 mg SC Q12 [facility]; Protocol Last Admin: 04/23/18 11:15 Dose: 30 mg Escitalopram Oxalate (Lexapro) 5 mg PO DAILY [facility] Last Admin: 04/23/18 11:13 Dose: 5 mg Ferrous Gluconate (Fergon) 324 mg PO TID [facility] Last Admin: 04/23/18 11:13 Dose: 324 mg Furosemide (Lasix) 20 mg PO DAILY [facility] Last Admin: 04/23/18 11:14 Dose: 20 mg Glipizide (Glucotrol) 5 mg PO DAILY [facility] Last Admin: 04/23/18 11:13 Dose: 5 mg Guaifenesin/Dextromethorphan (Robitussin Dm) 5 ml PO Q4H PRN PRN Reason: Cough Last Admin: 04/22/18 23:04 Dose: 5 ml Hydralazine HCl (Apresoline) 10 mg PO QID [facility] Last Admin: 04/23/18 11:14 Dose: 10 mg Insulin Human Regular (Humulin R Med) 0 units SC ACHS [facility]; Protocol Last Admin: 04/23/18 08:08 Dose: Not Given Losartan Potassium (Cozaar) 100 mg PO DAILY [facility] Last Admin: 04/23/18 11:13 Dose: 100 mg Metoprolol Tartrate (Lopressor) 50 mg PO BID [facility] Last Admin: 04/23/18 11:13 Dose: 50 mg Lidocaine [Lidocare] ((Home Med)) 1 each TP Q12 [facility] Last Admin: 04/23/18 11:15 Dose: Not Given Ondansetron HCl (Zofran Inj) 4 mg IVP Q6H PRN PRN Reason: Nausea/Vomiting Last Admin: 04/22/18 08:46 Dose: 4 mg Pantoprazole Sodium (Protonix Ec Tab) 40 mg PO 0600 [facility] Last Admin: 04/23/18 05:22 Dose: 40 mg Prednisone (Prednisone Tab) 20 mg PO DAILY [facility] Last Admin: 04/23/18 11:13 Dose: 20 mg Vitamin B Complex/Vit C/Folic Acid (Nephro-Andrae) 1 tab PO DAILY [facility] Last Admin: 04/23/18 11:14 Dose: 1 tab - Labs Labs: 04/21/18 06:30 04/23/18 09:45 - Respiratory Exam Respiratory Exam: Clear to Ausculation Bilateral, NORMAL BREATHING PATTERN - Cardiovascular Exam Cardiovascular Exam: REGULAR RHYTHM - GI/Abdominal Exam GI & Abdominal Exam: Normal Bowel Sounds - Extremities Exam Extremities Exam: Normal Capillary Refill, Normal Inspection - Back Exam Back Exam: NORMAL INSPECTION - Neurological Exam Neurological Exam: Alert, Awake - Skin Skin Exam: Dry, Warm Assessment and Plan (1) Hypertension Status: Acute - Assessment and Plan (Free Text) Plan: bp controlled on present rx, cleared for DC by cardio, stable for discharge to home, f/u as outpatient by Dr. Peña
[2018-04-23 16:17] VITALS: PULSE 64
--- NOTE | 2018-04-23 22:02 | PN ---
DATE: 04/23/2018 PULMONARY PROGRESS NOTE REFERRING PHYSICIAN: Stephani Peña MD SUBJECTIVE: She is out of bed to chair, tolerated CPAP poorly half an hour to 1 hour. Breathing is much better. No cough or shortness of breath. No nausea, vomiting, diarrhea. No leg pain or leg swelling. OBJECTIVE: GENERAL: No acute distress. VITAL SIGNS: Temperature is 98, heart rate 60, respiratory rate is 18, blood pressure 146/68, pulse ox 95% on room air. HEENT: Moist mucous membrane. Crowded airway. NECK: Supple. No JVD. LUNGS: Have a fair airflow. HEART: S1 and S2. ABDOMEN: Soft, nontender. No organomegaly. EXTREMITIES: There is no edema. NEUROLOGIC: Awake, alert and follows simple commands, but confused. Daughter is at bedside. MEDICATIONS: She is on hydralazine 10 mg 4 times daily, Cozaar 100 mg daily, doxycycline 100 mg twice a day, DuoNeb every 6 hours, ferrous gluconate 324 mg three times a day, glipizide 5 mg daily, insulin coverage, Lasix 20 mg daily, Lexapro 5 mg daily, lidocaine patch at affected area, metoprolol tartrate 50 mg twice a day, Lovenox 30 mg subcu twice a day, vitamin B complex daily with folic acid, Norvasc 10 mg daily, prednisone 20 mg daily, Protonix 40 mg daily, Robitussin DM p.r.n. basis, Zofran p.r.n. basis. LABORATORY DATA: Reviewed. Sodium 131, potassium 4, chloride 99, bicarbonate 26, BUN 38, creatinine 1.4, calcium 8.4, AST 25, ALT 20, alk phos is 51. Albumin is 2.9. IMPRESSION AND PLAN: Probably acute bronchitis with sinusitis, chronic lung disease need to be ruled out. Dementia, uncontrolled blood pressure which improved, may have sleep apnea syndrome, history of valvular heart disease. Case discussed with the patient's daughter at bedside. She lives at assisted living facility. Spoke to FILAMENT WOUND PARTS FABRICATOR on the floor. Also spoke to nursing staff. She will be discharged home on tapered dose of steroids and doxycycline. Will strongly recommend sleep study upon discharge as outpatient, especially, because of her declining memory and increasing confusion, to assure that sleep apnea is not one of the components adding to her disease. Thank you and we will follow with you. Faheem Queen MD [facility] # [id number]
== END 2018-04-23 18:54 | DRG 305 ==
LOC: ED 13:30 → ERH 16:55 → 2RSO 20:57 → OBSVTOIN 04-21 16:10
PROVIDERS: ADMIT Internal Medicine; ATTEND Internal Medicine
PROC: 3E0F7GC Introduction of Other Therapeutic Substance into Respiratory Tract, Via Natural or Artificial Opening (ICD-10-PCS; 2018-04-21)
PROC: 5A09357 Assistance with Respiratory Ventilation, Less than 24 Consecutive Hours, Continuous Positive Airway Pressure (ICD-10-PCS; principal; 2018-04-22)
DX: I10 Essential (primary) hypertension (principal); J44.0 Chronic obstructive pulmonary disease with (acute) lower respiratory infection; J20.9 Acute bronchitis, unspecified; E11.65 Type 2 diabetes mellitus with hyperglycemia; G30.9 Alzheimer's disease, unspecified; F02.80 Dementia in other diseases classified elsewhere, unspecified severity, without behavioral disturbance, psychotic disturbance, mood disturbance, and anxiety; E78.5 Hyperlipidemia, unspecified; M06.9 Rheumatoid arthritis, unspecified; I08.3 Combined rheumatic disorders of mitral, aortic and tricuspid valves; D64.9 Anemia, unspecified; N28.9 Disorder of kidney and ureter, unspecified

== ENCOUNTER 2018-06-13 20:40 | Inpatient (IN) | payer MEDICARE, OTHER ==
[2018-06-13 20:55] VITALS: BMI 20.9
--- NOTE | 2018-06-13 21:24 | ED PDOC ---
Arrival/HPI - General Chief Complaint: Shortness Of Breath Time Seen by Provider: 06/13/18 20:53 Historian: Patient - History of Present Illness Narrative History of Present Illness (Text): 06/13/18 21:21 87 year old female, with past medical history of diabetes, dementia, HTN, and heart valve regurgitation, presents to the Emergency Department from retirement via EMS for evaluation of low blood pressure, low heart rate, and shortness of breath, prior to arrival. Patient's daughters state patient was not feeling well. Daughter states, upon her arrival, patient's heart rate was 48bpm. Daughter also states noticing labored breathing. Patient denies any fevers, chills, headache, dizziness, chest pain, abdominal pain, nausea, vomiting, diarrhea, back pain, neck pain, or any other complaint.. PMD: Dr. Peña Time/Duration: Prior to Arrival Symptom Onset: Gradual Activities at Onset: Rest Context: Home (prison) Past Medical History - Provider Review Nursing Documentation Reviewed: Yes - Infectious Disease Hx of Infectious Diseases: None - Tetanus Immunization Tetanus Immunization: Unknown - Cardiac Hx Cardiac Disorders: Yes Hx Hypertension: Yes - Pulmonary Hx Respiratory Disorders: No - Neurological Hx Neurological Disorder: Yes Hx Dementia: Yes Other/Comment: hallucinations - HEENT Hx HEENT Disorder: No - Renal Hx Renal Disorder: No - Endocrine/Metabolic Hx Endocrine Disorders: Yes Hx Diabetes Mellitus Type 2: Yes - Hematological/Oncological Hx Blood Disorders: Yes Hx Anemia: Yes - Integumentary Hx Dermatological Disorder: No - Musculoskeletal/Rheumatological Hx Musculoskeletal Disorders: Yes Hx Arthritis: Yes (rheumatoid) Hx Falls: Yes - Gastrointestinal Hx Gastrointestinal Disorders: No - Genitourinary/Gynecological Hx Genitourinary Disorders: No - Psychiatric Hx Psychophysiologic Disorder: Yes Hx Anxiety: Yes Hx Hallucinations: Yes Hx Substance Use: No - Past Surgical History Past Surgical History: No Previous - Surgical History Other/Comment: hemmoroidectomy - Anesthesia Hx Anesthesia: Yes Hx Anesthesia Reactions: No Hx Malignant Hyperthermia: No - Suicidal Assessment Feels Threatened In Home Enviroment: No Family/Social History - Physician Review Nursing Documentation Reviewed: Yes Family/Social History: No Known Family HX Smoking Status: Never Smoked Hx Alcohol Use: No Hx Substance Use: No Hx Substance Use Treatment: No Allergies/Home Meds Allergies/Adverse Reactions: Allergies No Known Allergies Allergy (Verified 07/20/17 20:56) Home Medications: Home Meds Medication Instructions Recorded Confirmed RX: Losartan/Hydrochlorothiazide 1 tab PO DAILY 06/09/14 01/23/18 [Losartan-Hctz 50-12.5 mg Tab] RX: GlipiZIDE [Glucotrol] 5 mg PO DAILY 08/30/15 01/23/18 RX: Escitalopram [Lexapro] 5 mg PO DAILY 06/14/16 01/23/18 RX: Ferrous Gluconate [Fergon] 324 mg PO TID 01/23/18 01/23/18 RX: Furosemide [Lasix] 20 mg PO DAILY 01/23/18 01/23/18 RX: Insulin Human Regular [HumuLIN 100 units SC ACHS 01/23/18 01/23/18 R] RX: Lidocaine [Lidocare] 1 each TP Q12 01/23/18 01/23/18 RX: Vit B Comp No.3/Folic/C/Biotin 1 tab PO DAILY 01/23/18 01/23/18 [Ricarda-Andrae Rx Tablet] RX: amLODIPine [Norvasc] 5 mg PO DAILY 01/23/18 01/23/18 Review of Systems - Physician Review All systems were reviewed & negative as marked: Yes - Review of Systems Constitutional: absent: Fevers, Night Sweats Respiratory: SOB Cardiovascular: absent: Chest Pain Gastrointestinal: absent: Abdominal Pain, Diarrhea, Nausea, Vomiting Musculoskeletal: absent: Back Pain, Neck Pain Neurological: absent: Headache, Dizziness Physical Exam - Systems Exam Head: Present: Atraumatic, Normocephalic Pupils: Present: PERRL Extroacular Muscles: Present: EOMI Conjunctiva: Present: Normal Mouth: Present: Moist Mucous Membranes Neck: Present: Normal Range of Motion Respiratory/Chest: Present: Clear to Auscultation, Good Air Exchange. No: Respiratory Distress, Accessory Muscle Use Cardiovascular: Present: Normal S1, S2, Bradycardic. No: Murmurs Abdomen: No: Tenderness, Distention, Peritoneal Signs Back: Present: Normal Inspection Upper Extremity: Present: Normal Inspection. No: Cyanosis, Edema Lower Extremity: Present: Normal Inspection. No: Edema Neurological: Present: Speech Normal Skin: Present: Warm, Dry, Normal Color. No: Rashes Psychiatric: Present: Alert, Oriented x 3, Normal Insight, Normal Concentration Medical Decision Making ED Course and Treatment: 06/13/18 21:29 Impression: 87 year old female presents for evaluation of low heart rate and shortness of breath. Plan: -- EKG -- Labs -- Chest X-ray -- Reassess and disposition Prior Visits: Notes and results from previous visits were reviewed. case d/w dr peña will admit for chf and pneumonia - RAD Interpretation Radiology Orders: 06/13/18 21:17 CHEST PORTABLE [RAD] Stat - EKG Interpretation EKG Interpretation (Text): 06/13/18 22:35 sinus bradycardia rate 55 nop acute changes - Scribe Statement The provider has reviewed the documentation as recorded by the Uzairibjim Lock Provider Scribe Attestation: All medical record entries made by the Scribe were at my direction and personally dictated by me. I have reviewed the chart and agree that the record accurately reflects my personal performance of the history, physical exam, medical decision making, and the department course for this patient. I have also personally directed, reviewed, and agree with the discharge instructions and disposition. Disposition/Present on Arrival - Present on Arrival Any Indicators Present on Arrival: No History of DVT/PE: No History of Uncontrolled Diabetes: No Urinary Catheter: No History of Decub. Ulcer: No History Surgical Site Infection Following: None - Disposition Have Diagnosis and Disposition been Completed?: Yes Diagnosis: CHF exacerbation, Pneumonia Disposition: HOSPITALIZED Disposition Time: 23:45 Condition: GOOD
[2018-06-13 22:45] LABS: BASO # 0.02 K/mm3 (0.0-2.0); BASO % 0.2 % (0.0-3.0); EOS # 0.2 (0.0-0.7); GRAN # 8.16 (1.4-6.5); GRAN % 71.5 % (50.0-68.0); HEMOGLOBIN 9.6 g/dL (12.0-16.0); LYMPH # 2.1 (1.2-3.4); LYMPH % 18.1 % (22.0-35.0); MEAN CELL VOLUME 85.9 fl (80.0-105.0); MEAN CORPUSCULAR HEMOGLOBIN 28.2 pg (25.0-35.0); MEAN CORPUSCULAR HGB CONC 32.9 g/dl (31.0-37.0); MEAN PLATELET VOLUME 10.7 fl (7.0-11.0); MONO # 0.9 (0.1-0.6); MONO % 8.2 % (1.0-6.0); RBC 3.4 10^6/uL (3.5-6.1); RED CELL DISTRIBUTION WIDTH 14.7 % (11.5-14.5); WHITE BLOOD COUNT 11.4 10^3/uL (4.5-11.0)
[2018-06-13] MEDS ORDERED: Piperacillin/Tazobact 3.375 gm 100 ML IVPB STA (22:48)
[2018-06-13 22:51] LABS: PARTIAL THROMBOPLASTIN TIME 28.6 Seconds (25.1-36.5)
[2018-06-13 22:52] LABS: INR 1.06; PROTHROMBIN TIME 12.1 SECONDS (9.4-12.5)
[2018-06-13 22:53] LABS: ALB/GLOB RATIO 0.9 (1.1-1.8); ALBUMIN 3.5 g/dL (3.0-4.8); ALT/SGPT 35 U/L (7-56); AST/SGOT 41 U/L (14-36); BLOOD UREA NITROGEN 83 mg/dL (7-21); CALCIUM 8.8 mg/dL (8.4-10.5); GFR NON-AFRICAN AMERICAN 15
[2018-06-13] MEDS ORDERED: Albuterol-Ipratrop 3 mg / 0.5 (3 ml) UD IH STA (23:04)
[2018-06-13 23:05] LABS: B-TYPE NATRIURETIC PEPTIDE 9460 pg/mL (0-450); TROPONIN I < 0.01 ng/mL
[2018-06-13] MEDS ORDERED: Albuterol-Ipratrop 3 mg / 0.5 (3 ml) UD ONE (23:06)
[2018-06-14] MEDS ORDERED: Albuterol-Ipratrop 3 mg / 0.5 (3 ml) UD IH PRN ×2 (00:30→09:02)
--- NOTE | 2018-06-14 08:59 | RAD ---
Date of service: 06/13/2018 HISTORY: sob COMPARISON: 04/20/2018 FINDINGS: LUNGS: No active pulmonary disease. PLEURA: No significant pleural effusion identified, no pneumothorax apparent. CARDIOVASCULAR: No aortic atherosclerotic calcification present. Moderate cardiomegaly. Aortic tortuosity. Mild vascular congestion OSSEOUS STRUCTURES: No significant abnormalities. VISUALIZED UPPER ABDOMEN: Normal. OTHER FINDINGS: None. IMPRESSION: Moderate cardiomegaly and mild vascular congestion
[2018-06-14] MEDS ORDERED: LIDOCAINE TP SCH (10:00)
--- NOTE | 2018-06-14 10:13 | CARD ---
APPROVED REPORT Date of service: 06/13/2018 EKG Measurement Heart [id number] <Conclusion> Sinus bradycardia Otherwise normal ECG
[2018-06-14] MEDS: Lidocaine 5% Patch TD SCH ×2 (10:28→21:26)
[2018-06-14] MEDS: Pantoprazole 40 mg EC Tab PO SCH (10:31)
[2018-06-14] MEDS: cefTRIAXone 1 gm 1 GM/100 ML BAG IVPB SCH (10:31)
[2018-06-14] MEDS: Multivitamin Vitamin B Complex (Nephro-Vite) Tab PO SCH (10:31)
[2018-06-14] MEDS: Azithromycin 500MG/NS 250ml 500 MG/250 ML BAG IVPB SCH (11:07)
[2018-06-14] MEDS: Insulin Reg-MEDIUM-Coverage SC SCH ×2 (12:24→21:23)
[2018-06-14] MEDS: Budesonide 0.5 mg/2 ml Inhal Susp UD IH SCH (20:01)
[2018-06-14] MEDS: Arformoterol 15 mcg/2 ml Inh Sol IH SCH (20:01)
[2018-06-14] MEDS ORDERED: DiphenhydrAMINE 50 mg/ml Inj IVP ONE (21:43)
--- NOTE | 2018-06-14 21:55 | CON ---
DATE: 06/14/2018 PULMONARY CONSULTATION REFERRING PHYSICIAN: Dr. Peña. REASON FOR CONSULTATION: Cough, shortness of breath, congestion. HISTORY OF PRESENT ILLNESS: This is an 87-year-old female, known to me from previous admissions, has a history of valvular heart disease, renal failure, sinusitis, acute bronchitis, Alzheimer type dementia, diabetes, hypertension, brought in to ER by the daughter because of not feeling well, hypotensive, has been having some cough, unable to clear pulmonary secretion. No hemoptysis, emesis, or hematuria. No diarrhea reported. PAST MEDICAL HISTORY: As per history of present illness. ALLERGIES: NONE KNOWN. SOCIAL HISTORY: Nonsmoker, nondrinker. FAMILY HISTORY: No significant cardiopulmonary disease reported. MEDICATIONS: She is on DuoNeb every 6 hours, ferrous gluconate 325 mg three times a day, glipizide 5 mg daily, insulin coverage, Lasix 20 mg daily, Lexapro 5 mg daily, lidocaine patch at affected area, Nephro vitamins, Protonix 40 mg daily, Robitussin 5 mL every 4 hours p.r.n., Rocephin 1 g daily, Tylenol on p.r.n. basis, Zithromax 5 mg daily. REVIEW OF SYSTEMS: No headache. Has some rhinitis, cough, shortness of breath. No hemoptysis, emesis, or hematuria. No diarrhea, leg pain, or leg swelling. PHYSICAL EXAMINATION GENERAL: Lying in the bed, in no acute distress. VITAL SIGNS: Temperature is 98, heart rate is 67, respiratory rate is 20, blood pressure 122/70, pulse ox 96% on room air. HEENT: Moist mucous membranes. Small oral cavity. Crowded airway. NECK: Supple. Mild maxillary sinus tenderness. LUNGS: Have a few crackles at bases. Scattered rhonchi. HEART: S1 and S2. No murmur. ABDOMEN: Soft, nontender. No organomegaly. EXTREMITIES: There is not much edema. NEUROLOGICALLY: Sleepy, arousable, will follow simple commands. LABORATORY DATA: Shows hemoglobin 9.6, hematocrit 29.2, WBC 11.4, platelet count is 376. INR from yesterday 1.06, PTT is 29. Sodium 133, potassium 5.2, chloride 103, bicarbonate 21, BUN 83, creatinine 2.9, glucose 163, calcium is 8.8, magnesium 2.4, AST 41, ALT 35, alk phos is 120. LDH 444. Albumin is 3.5. ProBNP of 9460. Chest x-ray done, noted cardiomegaly and mild vascular congestion. IMPRESSION AND PLAN: Sinusitis, may have acute bronchitis, valvular heart disease, renal failure, Alzheimer type dementia, history of hypertension, and diabetes. Case discussed with the daughter at bedside. All the questions answered. Continue antibiotics. We will increase her diuretics. We will need to repeat echocardiogram to assess the valves, pulmonary pressures. Gastric and deep venous thrombosis prophylaxis. Follow up labs in the morning. Thank you, and we will follow with you. Faheem Queen MD
[2018-06-15] MEDS ORDERED: Albuterol-Ipratrop 3 mg / 0.5 (3 ml) UD IH STA (01:46)
[2018-06-15] MEDS ORDERED: MethylPREDNISolone 40 mg Vial IVP STA (05:13)
[2018-06-15] MEDS: Albuterol-Ipratrop 3 mg / 0.5 (3 ml) UD IH PRN ×2 (05:30→23:44)
[2018-06-15 06:38] LABS: ARTERIAL BLOOD GAS HCO3 18.8 mmol/L (21-28); ARTERIAL BLOOD GAS O2 SAT 98.9 % (95-98); ARTERIAL BLOOD GAS PCO2 29 mm/Hg (35-45); ARTERIAL BLOOD GAS PH 7.42 (7.35-7.45); ARTERIAL BLOOD GAS TCO2 19.7 mmol.L (22-28)
[2018-06-15 06:39] LABS: IRON 34 ug/dL (45-180)
[2018-06-15 06:40] LABS: HDL CHOLESTEROL 37 mg/dL (29-60)
[2018-06-15 06:48] LABS: % IRON SATURATION 17 % (20-55); TOTAL IRON BINDING CAPACITY 203 ug/dL (265-497)
[2018-06-15 06:50] LABS: ALB/GLOB RATIO 0.9 (1.1-1.8); ALBUMIN 3.2 g/dL (3.0-4.8); CALCIUM 9.2 mg/dL (8.4-10.5)
[2018-06-15 06:51] LABS: LDL CHOLESTEROL 75 mg/dL (0-129); TROPONIN I 0.03 ng/mL
--- NOTE | 2018-06-15 07:39 | CARD ---
APPROVED REPORT Date of service: 06/14/2018 EXAM: Two-dimensional and M-mode echocardiogram with Doppler and color Doppler. INDICATION Pulmonary Hypertention 2D DIMENSIONS Left Atrium (2D)4.5 (1.6-4.0cm)IVSd1.0 (0.7-1.1cm) LVDd4.2 (3.9-5.9cm)PWd1.2 (0.7-1.1cm) LVDs2.6 (2.5-4.0cm)FS (%) 37.3 % LVEF (%)67.7 (>50%) M-Mode DIMENSIONS Aortic Root2.50 (2.2-3.7cm)Aortic Cusp Exc.1.30 (1.5-2.0cm) Aortic Valve AoV Peak Cxpcwlos210.0cm/sAoV VTI56.8cmAO Peak GR.39mmHg LVOT Peak Bwiziatz606.0cm/sLVOT VTI32.10cmAO Mean GR.16mmHg AI P 1/2 [id number] Mitral Valve MV E Bqtrmwbo702.0cm/sMV A Jevuegzp162.0cm/sE/A ratio1.1 TDI Lateral E' Peak V8.97cm/sMedial E' Peak V6.92cm/sE/Lateral E'12.7 E/Medial E'16.5 Pulmonary Valve PV Peak Shmwekrc40.3cm/sPV Peak Grad.3mmHg Tricuspid Valve TR Peak Zbzmbpwo212cs/sRAP THBPCJAE84pdSlMX Peak Gr.65mmHg [id number] LEFT VENTRICLE The left ventricle is normal size. There is normal left ventricular wall thickness. The left ventricular function is normal.EF-65% There is normal LV segmental wall motion. Transmitral Doppler flow pattern is Grade III-reversible restrictive diastolic dysfunction. No left ventricle thrombus noted on this study. There is no ventricular septal defect visualized. There is no left ventricular aneurysm. There is no mass noted in the left ventricle. RIGHT VENTRICLE The right ventricle is mildly dilated. There is normal right ventricular wall thickness. The right ventricular systolic function is normal. ATRIA The left atrium is mildly dilated. The right atrium is mildly dilated. The interatrial septum is intact with no evidence for an atrial septal defect. AORTIC VALVE The aortic valve is bicuspid, possibly. There is moderate aortic regurgitation. There is no aortic valvular stenosis. There is no aortic valvular vegetation. MITRAL VALVE The mitral valve is thickened but opens well. Mitral regurgitation is mild to moderate. There is no mitral valve stenosis. There is no evidence of mitral valve prolapse. TRICUSPID VALVE The tricuspid valve leaflets are thickened , but open well. There is moderate to severe tricuspid regurgitation.RVSP-75 mmof hg There is moderate to severe pulmonary hypertension. There is no tricuspid valve stenosis. There is no tricuspid valve prolapse or vegetation. PULMONIC VALVE The pulmonary valve is normal in structure. There is trace pulmonic valvular regurgitation. There is no pulmonic valvular stenosis. GREAT VESSELS The aortic root is normal in size. The ascending aorta is normal in size. The pulmonary artery is normal. The IVC is normal in size and collapses >50% with inspiration. PERICARDIAL EFFUSION There is moderate left pleural effusion. There is a trace to small pericardial effusion. <Conclusion> The left ventricle is normal size. There is normal left ventricular wall thickness. The left ventricular function is normal.EF-65% The right ventricle is mildly dilated. The right ventricular systolic function is normal. There is moderate aortic regurgitation. The aortic valve is bicuspid, possibly. Mitral regurgitation is moderate. There is moderate to severe tricuspid regurgitation.RVSP-75 mmof hg There is moderate to severe pulmonary hypertension. The IVC is normal in size and collapses >50% with inspiration. There is a trace to small pericardial effusion. There is moderate left pleural effusion.
[2018-06-15] MEDS: Budesonide 0.5 mg/2 ml Inhal Susp UD IH SCH ×4 (07:50→20:15)
[2018-06-15] MEDS: Arformoterol 15 mcg/2 ml Inh Sol IH SCH ×2 (07:52→20:14)
[2018-06-15] MEDS: Insulin Reg-MEDIUM-Coverage SC SCH ×5 (08:14→21:37)
--- NOTE | 2018-06-15 08:37 | HP ---
DATE OF EXAM: 06/14/2018 The patient is an 87-year-old female. The patient was seen and examined at the bedside on 06/14/2018. Daughter was sitting at the bedside also. CHIEF COMPLAINT: Shortness of breath. HISTORY OF PRESENT ILLNESS: Ms. Nova Broderick is an 87-year-old female with past medical history of diabetes mellitus, dementia, hypertension, heart valve replacement, who came to the Emergency Department from [facility] via EMS for evaluation of low blood pressure, low heart rate and shortness of breath. The patient's daughter states that the patient was not feeling well. Actually, the patient is a resident of [facility]. A couple of weeks ago, she was having swelling of the legs, just had water pills and leg was getting red. We gave her course of the antibiotics and then she started coughing. We did chest x-ray, it was almost clear now. Yesterday, she started shortness of breath and heart rate was dropping, blood pressure was dropping. Daughter brought her to the hospital. Heart rate in the ER was in the 40s. The patient was having some breathing. No fever. No chills. No headache. No dizziness. No chest pain. No palpitation. PAST MEDICAL HISTORY: Hypertension, dementia, diabetes mellitus type 2, anemia, arthritis, fall, history of congestive heart failure, anxiety, history of hallucinations and history of hemorrhoidectomy. FAMILY HISTORY: Father and mother, noncontributory. HABITS: No smoking. No drugs. No ethanol. ALLERGIES: THE PATIENT IS NOT ALLERGIC WITH ANY MEDICATIONS. HOME MEDICATIONS: Losartan, glipizide, Lexapro, Fergon, Lasix, insulin, and lidocaine. REVIEW OF SYSTEMS: The patient was seen and examined at the bedside. Looking comfortable. Sleepy, arousable. Moving all four extremities. No headache. No dizziness. No chest pain. No palpitation. The patient is very poor historian, but daughter is sitting on the bed. coughing and shortness of breath. No hematemesis. No hematuria and no hematochezia. PHYSICAL EXAMINATION VITAL SIGNS: Temperature 98, pulse 67, respiratory rate 20. HEAD: Head; normocephalic and atraumatic. Eyes; PERRLA. Extraocular muscles intact. Conjunctivae clear. Nose patent. Mucous membranes moist. NECK: Supple. No carotid bruits, JVD, or thyromegaly. CHEST: Bilaterally symmetrical. HEART: S1 and S2 positive. LUNGS: Have few scattered rhonchi at the bases. ABDOMEN: Soft. Bowel sounds present. No organomegaly. NEUROLOGIC: The patient is sleepy and arousable. Follows simple command. LABORATORY DATA: Hemoglobin 9.6, hematocrit 27.2, white blood cells 11.4, platelets 376. Sodium 133, potassium 5.2, BUN 18, creatinine 2.9. Glucose 163. AST 41 and ALT 35. ASSESSMENT AND PLAN: Ms. Nova Broderick has a history of dementia, hypertension, diabetes mellitus, sinusitis, looks like has acute bronchitis, valvular heart disease. Chest x-ray noted there is cardiomegaly and mild vascular congestion, history of congestive heart failure, history of cellulitis of the legs, was treated in [facility]. Dr. Queen increased the diuretics. Echocardiogram with valvular situation, LV pressure. Gastric and deep venous thrombosis prophylaxis. Waiting for input of heel shaver. Discussion done with the daughter. All questions answered. We will follow up. Stephani Peña MD MTDD
[2018-06-15] MEDS: Lidocaine 5% Patch TD SCH ×2 (10:02→21:33)
[2018-06-15] MEDS: cefTRIAXone 1 gm 1 GM/100 ML BAG IVPB SCH (10:03)
[2018-06-15] MEDS: Multivitamin Vitamin B Complex (Nephro-Vite) Tab PO SCH (10:04)
[2018-06-15] MEDS: Pantoprazole 40 mg EC Tab PO SCH (10:05)
[2018-06-15] MEDS: guaiFENesin DM 100 mg-10 mg/5 ml UD PO PRN ×2 (10:31→23:43)
--- NOTE | 2018-06-15 12:09 | CP.PCM.CON ---
History of Present Illness - History of Present Illness History of Present Illness: Awake, alert,turkmen speaking, daughter at bedside Reason for consultation: Cardiac evaluation of shortness of breath, low blood pressure and heart rate Brief history of present illness: An 87 year old female who was brought to the ER due to shortness of breath, low blood pressure and heart rate. Per daughter she does not feel well. Denies shortness of breath now. History of diabetes,hypertension,dementia, chronic diastolic dysfunction congestive heart failure. Seen and examined by me and Dr. Payne Review of Systems - Review of Systems All systems: reviewed and no additional remarkable complaints except Review of Systems: as per HPI Past Patient History - Infectious Disease Hx of Infectious Diseases: None - Tetanus Immunizations Tetanus Immunization: Unknown - Past Social History Smoking Status: Former Smoker - CARDIAC Hx Cardiac Disorders: Yes Hx Hypertension: Yes - PULMONARY Hx Respiratory Disorders: No - NEUROLOGICAL Hx Neurological Disorder: Yes Hx Dementia: Yes Other/Comment: hallucinations - HEENT Hx HEENT Problems: No - RENAL Hx Chronic Kidney Disease: No - ENDOCRINE/METABOLIC Hx Endocrine Disorders: Yes Hx Diabetes Mellitus Type 2: Yes - HEMATOLOGICAL/ONCOLOGICAL Hx Blood Disorders: Yes Hx Anemia: Yes - INTEGUMENTARY Hx Dermatological Problems: No - MUSCULOSKELETAL/RHEUMATOLOGICAL Hx Musculoskeletal Disorders: Yes Hx Arthritis: Yes (rheumatoid) Hx Falls: Yes - GASTROINTESTINAL Hx Gastrointestinal Disorders: No - GENITOURINARY/GYNECOLOGICAL Hx Genitourinary Disorders: No - PSYCHIATRIC Hx Psychophysiologic Disorder: Yes Hx Anxiety: Yes Hx Hallucinations: Yes - SURGICAL HISTORY Other/Comment: hemmoroidectomy - ANESTHESIA Hx Anesthesia: Yes Hx Anesthesia Reactions: No Hx Malignant Hyperthermia: No Meds Allergies/Adverse Reactions: Allergies Allergy/AdvReac Type Severity Reaction Status Date / Time No Known Allergies Allergy Verified 07/20/17 20:56 - Medications Medications: Current Medications Acetaminophen (Tylenol 325mg Tab) 650 mg PO Q4H PRN PRN Reason: Pain, Mild (1-3) Last Admin: 06/14/18 11:08 Dose: 650 mg Albuterol/Ipratropium (Duoneb 3 Mg/0.5 Mg (3 Ml) Ud) 3 ml IH Q2H PRN PRN Reason: Shortness of Breath Last Admin: 06/15/18 05:30 Dose: 3 ml Amlodipine Besylate (Norvasc) 5 mg PO DAILY [facility] Arformoterol Tartrate (Brovana) 15 mcg IH [id number] [facility] Last Admin: 06/15/18 07:52 Dose: 15 mcg Budesonide (Pulmicort Respules) 0.5 mg IH Q12 [facility] Last Admin: 06/15/18 07:52 Dose: 0.5 mg Escitalopram Oxalate (Lexapro) 5 mg PO DAILY [facility] Last Admin: 06/15/18 10:02 Dose: 5 mg Ferrous Gluconate (Fergon) 324 mg PO TID [facility] Last Admin: 06/15/18 10:12 Dose: 324 mg Furosemide (Lasix) 40 mg PO DAILY [facility] Last Admin: 06/15/18 10:04 Dose: 40 mg Glipizide (Glucotrol) 5 mg PO DAILY [facility] Last Admin: 06/15/18 10:04 Dose: 5 mg Guaifenesin/Dextromethorphan (Robitussin Dm) 5 ml PO Q4 PRN PRN Reason: Cough Last Admin: 06/15/18 10:31 Dose: 5 ml Ceftriaxone Sodium (Rocephin 1 Gram Ivpb) 1 gm in 100 mls @ 100 mls/hr IVPB D AILY [facility]; Protocol Last Admin: 06/15/18 10:03 Dose: 100 mls/hr Azithromycin (Zithromax 500mg In Ns) 500 mg in 250 mls @ 167 mls/hr IVPB DAILY [facility]; Protocol Last Admin: 06/14/18 11:07 Dose: 167 mls/hr Insulin Human Regular (Humulin R Med) 0 units SC ACHS [facility]; Protocol Last Admin: 06/15/18 08:14 Dose: Not Given Lidocaine (Lidoderm) 1 ea TD Q12H [facility] Last Admin: 06/15/18 10:02 Dose: 1 ea Methylprednisolone (Solu-Medrol) 40 mg IVP Q12 [facility] Montelukast Sodium (Singulair) 10 mg PO DAILY [facility] Last Admin: 06/15/18 10:06 Dose: 10 mg Pantoprazole Sodium (Protonix Ec Tab) 40 mg PO DAILY [facility] Last Admin: 06/15/18 10:05 Dose: 40 mg Vitamin B Complex/Vit C/Folic Acid (Nephro-Andrae) 1 tab PO DAILY [facility] Last Admin: 06/15/18 10:04 Dose: 1 tab Physical Exam - Constitutional Appears: Non-toxic, No Acute Distress - Head Exam Head Exam: NORMAL INSPECTION, NORMOCEPHALIC - Eye Exam Eye Exam: Normal appearance Pupil Exam: NORMAL ACCOMODATION - ENT Exam ENT Exam: Mucous Membranes Moist, Normal Exam - Respiratory Exam Respiratory Exam: Decreased Breath Sounds, NORMAL BREATHING PATTERN - Cardiovascular Exam Cardiovascular Exam: Bradycardia, +S1, +S2 Additional comments: No JVD - GI/Abdominal Exam GI & Abdominal Exam: Normal Bowel Sounds, Soft - Extremities Exam Additional comments: no edema - Neurological Exam Neurological exam: Alert, Oriented x3 - Psychiatric Exam Psychiatric exam: Normal Affect, Normal Mood - Skin Skin Exam: Dry, Normal Color, Warm Results - Vital Signs Recent Vital Signs: Last Vital Signs Temp 98.8 F 06/14/18 18:40 Pulse 80 06/15/18 06:00 Resp 20 06/14/18 18:40 BP 149/69 06/15/18 10:04 Pulse Ox 94 L 06/14/18 18:40 - Labs Result Diagrams: 06/13/18 22:38 06/15/18 06:00 Labs: Laboratory Results - last 24 hr 06/14/18 06/14/18 06/14/18 12:23 17:20 21:23 pCO2 pO2 HCO3 ABG pH ABG Total CO2 ABG O2 Saturation ABG Base Excess ABG Potassium Glucose Lactate FiO2 Sodium Potassium Chloride Carbon Dioxide Anion Gap BUN Creatinine Est GFR ( Amer) Est GFR (Non-Af Amer) POC Glucose (mg/dL) 171 H 160 H 132 H Random Glucose Hemoglobin A1c Calcium Iron TIBC % Saturation Total Bilirubin AST ALT Alkaline Phosphatase Lactate Dehydrogenase Total Creatine Kinase Troponin I Total Protein Albumin Globulin Albumin/Globulin Ratio Triglycerides Cholesterol LDL Cholesterol Direct HDL Cholesterol Arterial Blood Potassium 06/15/18 06/15/18 06/15/18 06:00 06:00 06:00 pCO2 pO2 HCO3 ABG pH ABG Total CO2 ABG O2 Saturation ABG Base Excess ABG Potassium Glucose Lactate FiO2 Sodium 140 Potassium 4.6 Chloride 108 H Carbon Dioxide 25 Anion Gap 12 BUN 66 H Creatinine 2.0 H Est GFR ( Amer) 28 Est GFR (Non-Af Amer) 24 POC Glucose (mg/dL) Random Glucose 138 H Hemoglobin A1c Calcium 9.2 Iron 34 L TIBC 203 L % Saturation 17 L Total Bilirubin 0.4 AST 52 H D ALT 28 Alkaline Phosphatase 86 Lactate Dehydrogenase 429 Total Creatine Kinase 30 L Troponin I 0.03 D Total Protein 6.9 Albumin 3.2 Globulin 3.6 Albumin/Globulin Ratio 0.9 L Triglycerides 76 Cholesterol 129 L LDL Cholesterol Direct 75 HDL Cholesterol 37 Arterial Blood Potassium 06/15/18 06/15/18 06/15/18 06:00 06:25 07:24 pCO2 29 L pO2 92.0 HCO3 18.8 L ABG pH 7.42 ABG Total CO2 19.7 L ABG O2 Saturation 98.9 H ABG Base Excess -4.4 L ABG Potassium 3.6 Glucose 143 H Lactate 0.6 L FiO2 32.0 Sodium 139.0 Potassium Chloride 110.0 H Carbon Dioxide Anion Gap BUN Creatinine Est GFR ( Amer) Est GFR (Non-Af Amer) POC Glucose (mg/dL) 151 H Random Glucose Hemoglobin A1c 6.5 Calcium Iron TIBC % Saturation Total Bilirubin AST ALT Alkaline Phosphatase Lactate Dehydrogenase Total Creatine Kinase Troponin I Total Protein Albumin Globulin Albumin/Globulin Ratio Triglycerides Cholesterol LDL Cholesterol Direct HDL Cholesterol Arterial Blood Potassium 3.6 06/15/18 11:25 pCO2 pO2 HCO3 ABG pH ABG Total CO2 ABG O2 Saturation ABG Base Excess ABG Potassium Glucose Lactate FiO2 Sodium Potassium Chloride Carbon Dioxide Anion Gap BUN Creatinine Est GFR ( Amer) Est GFR (Non-Af Amer) POC Glucose (mg/dL) 294 H Random Glucose Hemoglobin A1c Calcium Iron TIBC % Saturation Total Bilirubin AST ALT Alkaline Phosphatase Lactate Dehydrogenase Total Creatine Kinase Troponin I Total Protein Albumin Globulin Albumin/Globulin Ratio Triglycerides Cholesterol LDL Cholesterol Direct HDL Cholesterol Arterial Blood Potassium Assessment & Plan - Assessment and Plan (Free Text) Assessment: An 87 year old female who was brought to the ER due to shortness of breath, low blood pressure and heart rate. Per daughter she does not feel well. Denies shortness of breath now. History of diabetes,hypertension,dementia, chronic diastolic dysfunction congestive heart failure, former smoker,anxiety,rheumatoid arthritis.Chest X ray showed mild cardiomegaly, with mild vascular congestion, EKG showed Sinus Bradycardia 56/min,normal ECG. Troponin borderline normal. Echo done today. LVEF 65%, Moderate AR/MR, moderate to severe TR, RVSP 75mmHg, moderate to severe pulmonary hypertension,moderate left pleural effusion,trace to small pericardial effusion. Severe pulmonary hypertension, moderate left pleural effusion. Pulmonary on consult. Plan: Denies shortness of breath Blood pressure stable Echo done LVEF 65%,moderate to severe pulmonary hypertension RVSP 75 mmHg, moderate left pleural effusion Will change Lasix to IV 40 mg BID On Norvasc 5 mg daily,Lasix 40 mg daily,Solumedrol 40 mg IV every 12 hours Continue IV antibiotics as ordered Continue nebulizer treatments Pulmonary on consult Chart reviewed Will follow up Further recommendations during hospital course. Plan and treatment discussed with Dr. Payne Thank you Dr. Peña for the opportunity of taking care Nova Herrongo - Date & Time Date: 06/15/18 Time: 06:30
--- NOTE | 2018-06-15 12:48 | PN ---
DATE: 06/15/2018 REFERRING PHYSICIAN: Stephani Peña MD SUBJECTIVE: The patient is sitting up in bed with daughter at her bedside. No overnight events reported. The patient does continue to complain of cough and congestion. No hemoptysis, emesis, hematuria, or diarrhea reported. Unable to clear pulmonary secretion. PHYSICAL EXAMINATION: VITAL SIGNS: Blood pressure 149/69, pulse 80, temp 98.8, pulse ox 94 on 2 liters oxygen, and respiratory rate 20. GENERAL: No acute distress. HEENT: Moist mucous membranes. Small oral cavity. Crowded airway. NECK: Supple. No JVD. LUNGS: Scattered rhonchi. Few crackles at the bases. CARDIOVASCULAR: S1 and S2 audible. ABDOMEN: Soft, nontender. No distention. No organomegaly. EXTREMITIES: No lower extremity edema. NEUROLOGIC: Awake, alert, verbal, follow simple commands, and periods of confusion. LABORATORY DATA: Reviewed. The pCO2 is 29, pO2 is 92, HCO3 is 18.8. ABG; pH 7.42. Sodium 140, potassium 4.6, chloride 108, carbon dioxide 25, anion gap 12, BUN 66, creatinine 2, GFR 24, random glucose 138, calcium 9.2, iron 34, TIBC 203, percent saturation 17, total bilirubin 0.4, AST 52, ALT 28, alkaline phosphatase 86, lactate dehydrogenase 429, total creatine kinase 30, troponin 0.03, total protein 6.9, albumin 3.2, globulin 3.6, albumin and globulin ratio 0.9, triglycerides 76, cholesterol 129, LDL cholesterol direct 75, HDL cholesterol 37, arterial blood potassium 3.6. Influenza type AB negative. Echocardiogram reviewed and shows left ventricular ejection fraction 67.7%, RVSP 75 mmHg. There is moderate aortic regurgitation. Mitral regurgitation is moderate, [id number] pulmonary hypertension, [id number] pericardial effusion, moderate left pleural effusion. MEDICATIONS: Reviewed. Tylenol 650 mg every 4 hours p.r.n. mild pain, DuoNeb 3 mL inhalation every 2 hours as needed, Brovana 15 mcg inhalation every 12 hours, azithromycin 500 mg daily, Pulmicort 0.5 mg inhalation every 12 hours, Rocephin 1 g IV daily, Lexapro 5 mg p.o. daily, ferrous gluconate 324 mg three times a day, Lasix 40 mg daily, glipizide 5 mg daily, Robitussin-DM 5 mL every 4 hours as needed, Humulin R sliding scale, Lidoderm patch to affected area every 12 hours, Singulair 10 mg daily, Protonix 40 mg daily, Nephro-Andrae one tab daily. IMPRESSION AND PLAN: Sinusitis, may have acute bronchitis, valvular heart disease, renal failure, Alzheimer's type dementia, history of hypertension, diabetes, Pulmonary Hypertension, suspected sleep apnea syndrome. Case discussed with daughter at bedside. Continue antibiotic therapy. Gastric and deep venous thrombosis prophylaxis. Continue inhaled bronchodilators, leukotriene inhibitors, inhaled steroids. We will start the patient on Norvasc 5 mg daily for pulmonary hypertension. We will order ventilation/perfusion scan, venous Doppler, rheumatoid factors, sed rate, JENNIFER, proBNP, procalcitonin level. The patient does have component of valvular disease. We need to rule out sleep apnea syndrome as we do suspect sleep apnea syndrome in this patient. The patient continues to refuse continuous positive airway pressure machine at this time. We will continue to discuss and encourage. The patient was seen and examined with Dr. Queen. Discussed assessment and plan as described above. Thank you for this consult and we will follow with you. Rigoberto Avilez APN Faheem Queen MD [facility]
--- NOTE | 2018-06-15 14:37 | NM ---
Date of service: 06/15/2018 COMPARISON: Portable chest 06/13/2018 TECHNIQUE: 38.0 mCi technetium 99-m DTPA aerosol. 5.2 mCI technetium 99-m MAA administered intravenously. FINDINGS: VENTILATION COMPONENT: Normal. PERFUSION COMPONENT: Normal. IMPRESSION: Lowprobability ventilation perfusion scan for pulmonary embolism.
[2018-06-15 16:34] LABS: FOLATE > 20.0 ng/mL
[2018-06-15] MEDS: MethylPREDNISolone 40 mg Vial IVP SCH ×2 (17:35→23:43)
[2018-06-15] MEDS: Azithromycin 500MG/NS 250ml 500 MG/250 ML BAG IVPB SCH (18:14)
--- NOTE | 2018-06-15 19:02 | CON ---
DATE: 06/15/2018 HISTORY OF PRESENT ILLNESS: The patient is an 87-year-old female with multiple medical issues including diabetes, dementia, hypertension, heart valve regurgitation. The patient was sent to the emergency department from the patient's long term for evaluation of low blood pressure, low heart rate, and shortness of breath. Psych consult was called for medication adjustment and the patient has episodes of visual hallucinations over nighttime. The patient was seen and examined. The patient's daughter is next to her. Her name is Medina [phone]. Medina reported that she and her sister,Carmen [phone] are power of trust and estates attorney for finances as well as for medical issues. Family was advised to bring the official document to the hospital for the medical record. She verbalized understanding. The patient presented to be very drowsy, very hard to interview. Majority of the information was obtained from the patient's daughter. The patient's daughter reported that the patient was diagnosed with dementia and right now she lives in the long term. The patient usually has visual hallucinations during the course of hospitalization. The patient's daughter reported that the patient is cognitively declining for past couple of years. This customs entry writer indicated about plan for Seroquel 12.5 mg at the nighttime as needed for psychosis. Risks, benefits and alternatives discussed with the patient's family. The patient's family agree with that medication. MEDICATIONS: Medications reviewed. The patient is on Tylenol, DuoNeb, Norvasc, Brovana, azithromycin, Pulmicort, Rocephin, Lexapro 5 mg daily, Lasix, glipizide, Robitussin, Humulin, Lidoderm, Solu-Medrol, Singulair, Protonix, Neutra-Phos. PHYSICAL EXAMINATION: MENTAL STATUS EXAMINATION: The patient appears to be sleepy, very hard to interview. Collaterals were obtained from the nursing staff as well as the patient's power of trust and estates attorney. As per the patient's daughter, the patient has never been diagnosed with depression, anxiety and never tried to kill herself in the past. LABORATORY DATA: Labs reviewed. The patient has leukocytosis. Blood gas reviewed. Chemistry reviewed. Serology reviewed. IMPRESSION: Most likely, the patient has delirium and dementia. PLAN: We will start Seroquel 12.5 mg in the nighttime as needed for psychosis to help with delirium. Risks, benefits, and alternatives of that medication discussed. We will continue Lexapro. We will follow up and advise accordingly. Should you have any questions, give me a call back. Silvana Tristan MD [facility]
--- NOTE | 2018-06-15 20:24 | CON ---
DATE: 06/15/2018 SERVICE: Cardiology. REASON FOR CONSULTATION: Followup cardiac evaluation, admitted with bradycardia, hypotension, and shortness of breath. BRIEF CLINICAL HISTORY: This is an 87-year-old female with a past medical history of diabetes, hypertension, valvular heart disease, pulmonary hypertension, sent from [facility], brought by the daughter because she was not feeling well and found to be heart rate slow and low blood pressure and shortness of breath. The patient denies any chest pain, shortness of breath, or any palpitation. Daughter is at the bedside. PAST MEDICAL HISTORY: Significant for hypertension, diabetes, anemia, arthritis, history of fall, history of congestive heart failure, history of significant rheumatoid arthritis. PAST SURGICAL HISTORY: Significant for hemorrhoidectomy; history of fracture of the shoulder recently, treated conservatively. Previous cardiac workup, the patient had echocardiogram on 07/30/2017. She has a normal LV diastolic function, moderate aortic regurgitation, moderate mitral regurgitation, moderate tricuspid regurgitation, RV systolic pressure of 47, calculated ejection fraction of 60%. This note is in addition to the dictated by nurse practitioner, Uyen Garcia. The patient had heart rate of 56, blood pressure 116/64 on admission to the ER. Hemoglobin 9.6, hematocrit 29.2, BUN 83, creatinine 2.9. Troponin remains flat , 0.02. Iron was low, severe iron deficiency 34, and saturation was 17%. BNP is elevated at 9460. Repeat echo was done yesterday, that revealed ejection fraction of 65%, right ventricle is mildly dilated, but RV function is normal, moderate aortic regurgitation, aortic valve is possibly bicuspid, moderate mitral regurgitation, [id number] tricuspid regurgitation, [id number] pulmonary hypertension, [id number] pericardial effusion, moderate large pleural effusion. RECOMMENDATIONS: Continue iron supplementation as ordered by Dr. Peña. diuretics, we will give her extra dose of Lasix this afternoon. Chest x-ray done, has a large heart, hard to predict. We will repeat chest x-ray after the diuresis and Lasix is increased to twice. We will follow chest x-ray in the morning, PA and lateral. Continue DVT prophylaxis. Antibiotics started by the doctor. We will follow with you. Faheem Payne MD [facility] # [id number]
[2018-06-15] MEDS ORDERED: DiphenhydrAMINE 50 mg/ml Inj IVP ONE (20:56)
[2018-06-15] MEDS ORDERED: MethylPREDNISolone 40 mg Vial IVP SCH (22:00)
[2018-06-16] MEDS: MethylPREDNISolone 40 mg Vial IVP SCH ×4 (05:47→23:16)
--- NOTE | 2018-06-16 06:55 | CP.PCM.PN ---
Subjective - Date & Time of Evaluation Date of Evaluation: 06/16/18 Time of Evaluation: 06:25 - Subjective Subjective: Awake, alert,no distress, complaints of occasional coughing, daughter at bedside Reason for consultation: Cardiac evaluation of shortness of breath, low blood pressure and heart rate,History of diabetes,hypertension,dementia, chronic diastolic dysfunction congestive heart failure. Seen and examined by me and Dr. Payne Objective - Vital Signs/Intake and Output Vital Signs (last 24 hours): Temp Pulse Resp BP Pulse Ox 98.3 F 95 H 21 135/71 95 06/15/18 17:12 06/16/18 01:43 06/15/18 17:12 06/15/18 17:34 06/15/18 17:12 Intake and Output: 06/15/18 06/16/18 18:59 06:59 Intake Total 540 Balance 540 - Medications Medications: Current Medications Acetaminophen (Tylenol 325mg Tab) 650 mg PO Q4H PRN PRN Reason: Pain, Mild (1-3) Last Admin: 06/14/18 11:08 Dose: 650 mg Albuterol/Ipratropium (Duoneb 3 Mg/0.5 Mg (3 Ml) Ud) 3 ml IH Q2H PRN PRN Reason: Shortness of Breath Last Admin: 06/15/18 23:44 Dose: 3 ml Amlodipine Besylate (Norvasc) 5 mg PO DAILY [facility] Arformoterol Tartrate (Brovana) 15 mcg IH [id number] [facility] Last Admin: 06/15/18 20:14 Dose: 15 mcg Budesonide (Pulmicort Respules) 0.5 mg IH Q12 [facility] Last Admin: 06/15/18 20:15 Dose: 0.5 mg Escitalopram Oxalate (Lexapro) 5 mg PO DAILY [facility] Last Admin: 06/15/18 10:02 Dose: 5 mg Ferrous Gluconate (Fergon) 324 mg PO TID [facility] Last Admin: 06/15/18 17:36 Dose: 324 mg Furosemide (Lasix) 40 mg IVP 1000,1800 [facility] Last Admin: 06/15/18 17:34 Dose: 40 mg Glipizide (Glucotrol) 5 mg PO DAILY [facility] Last Admin: 06/15/18 10:04 Dose: 5 mg Guaifenesin/Dextromethorphan (Robitussin Dm) 5 ml PO Q4 PRN PRN Reason: Cough Last Admin: 06/15/18 23:43 Dose: 5 ml Ceftriaxone Sodium (Rocephin 1 Gram Ivpb) 1 gm in 100 mls @ 100 mls/hr IVPB DAILY [facility]; Protocol Stop: 06/18/18 10:59 Last Admin: 06/15/18 10:03 Dose: 100 mls/hr Azithromycin (Zithromax 500mg In Ns) 500 mg in 250 mls @ 167 mls/hr IVPB DAILY [facility]; Protocol Last Admin: 06/15/18 18:14 Dose: 167 mls/hr Insulin Human Regular (Humulin R Med) 0 units SC ACHS [facility]; Protocol Last Admin: 06/15/18 21:37 Dose: Not Given Lidocaine (Lidoderm) 1 ea TD Q12H [facility] Last Admin: 06/15/18 21:33 Dose: 1 ea Methylprednisolone (Solu-Medrol) 40 mg IVP Q6 [facility] Last Admin: 06/16/18 05:47 Dose: 40 mg Montelukast Sodium (Singulair) 10 mg PO DAILY [facility] Last Admin: 06/15/18 10:06 Dose: 10 mg Pantoprazole Sodium (Protonix Ec Tab) 40 mg PO DAILY [facility] Last Admin: 06/15/18 10:05 Dose: 40 mg Quetiapine Fumarate (Seroquel) 12.5 mg PO HS PRN; Protocol PRN Reason: agitation/psychosis Last Admin: 06/15/18 18:14 Dose: 12.5 mg Vitamin B Complex/Vit C/Folic Acid (Nephro-Andrae) 1 tab PO DAILY [facility] Last Admin: 06/15/18 10:04 Dose: 1 tab - Labs Labs: 06/13/18 22:38 06/15/18 06:00 PT 12.1 SECONDS (9.4-12.5) 06/13/18 22:38 INR 1.06 06/13/18 22:38 APTT 28.6 Seconds (25.1-36.5) 06/13/18 22:38 - Constitutional Appears: Non-toxic, No Acute Distress - Head Exam Head Exam: NORMAL INSPECTION, NORMOCEPHALIC - Eye Exam Eye Exam: Normal appearance - ENT Exam ENT Exam: Mucous Membranes Moist - Respiratory Exam Respiratory Exam: Decreased Breath Sounds, Rhonchi, NORMAL BREATHING PATTERN - Cardiovascular Exam Cardiovascular Exam: REGULAR RHYTHM, +S1, +S2 - GI/Abdominal Exam GI & Abdominal Exam: Soft, Normal Bowel Sounds - Extremities Exam Extremities Exam: Full ROM, Normal Capillary Refill - Neurological Exam Neurological Exam: Alert, Awake, Oriented x3 - Psychiatric Exam Psychiatric exam: Normal Affect, Normal Mood - Skin Skin Exam: Dry, Normal Color, Warm Assessment and Plan - Assessment and Plan (Free Text) Assessment: An 87 year old female who was brought to the ER due to shortness of breath, low blood pressure and heart rate. Per daughter she does not feel well. Denies shortness of breath now. History of diabetes,hypertension,dementia, chronic diastolic dysfunction congestive heart failure, former smoker,anxiety,rheumatoid arthritis.Chest X ray showed mild cardiomegaly, with mild vascular congestion, EKG showed Sinus Bradycardia 56/min,normal ECG. Troponin borderline normal. Echo done today. LVEF 65%, Moderate AR/MR, moderate to severe TR, RVSP 75mmHg, moderate to severe pulmonary hypertension,moderate left pleural effusion,trace to small pericardial effusion. Severe pulmonary hypertension, moderate left pleural effusion. Lasix increase dosage. Pulmonary on consult. Plan: Denies shortness of breath, some non productive coughing as per daughter PRN Robitussin Dm Blood pressure stable Heart rate controlled On Norvasc 5 mg daily,Lasix 40 mg IV BID, Solumedrol 40 mg IV every 12 hours Continue IV antibiotics as ordered Continue nebulizer treatments Pulmonary on consult Glucose control Chart reviewed Will follow up Plan and treatment discussed with Dr. Payne
[2018-06-16 07:02] LABS: MEAN CELL VOLUME 85.5 fl (80.0-105.0); MEAN CORPUSCULAR HEMOGLOBIN 27.6 pg (25.0-35.0); MEAN CORPUSCULAR HGB CONC 32.3 g/dl (31.0-37.0); MEAN PLATELET VOLUME 9.9 fl (7.0-11.0); RBC 2.9 10^6/uL (3.5-6.1); RED CELL DISTRIBUTION WIDTH 14.3 % (11.5-14.5); WHITE BLOOD COUNT 11.4 10^3/uL (4.5-11.0)
[2018-06-16 07:16] LABS: CALCIUM 9.1 mg/dL (8.4-10.5)
[2018-06-16] MEDS: Arformoterol 15 mcg/2 ml Inh Sol IH SCH ×2 (07:42→19:44)
[2018-06-16] MEDS: Budesonide 0.5 mg/2 ml Inhal Susp UD IH SCH ×3 (07:42→23:16)
[2018-06-16] MEDS: Insulin Reg-MEDIUM-Coverage SC SCH ×4 (08:20→22:00)
--- NOTE | 2018-06-16 08:21 | PN ---
DATE: 06/15/2018 SUBJECTIVE: The patient was seen and examined at bedside on 06/15/2018, early in the morning, looking comfortable. No fever. No chills. No nausea, vomiting, or diarrhea. Still coughing. Having shortness of breath. supervising floorperson events noted. shortness of breath, dropping, seen by the hospitalist. Solu-Medrol 40 mg was given, then patient started feeling better. Now, we will put the patient on Solu-Medrol. No fever. No chills. No hematuria, no hematochezia. PHYSICAL EXAMINATION: VITAL SIGNS: Temperature 98.8, pulse 80, respiratory rate 20, blood pressure 149/69, pulse oximetry 94. HEENT: Head is normocephalic and atraumatic. Eyes PERRLA. Extraocular movements are intact. Conjunctivae clear. Nose patent. Mucous membranes moist. NECK: Supple. No carotid bruits. No JVD or thyromegaly. CHEST: Bilaterally symmetrical. HEART: S1 and S2 positive. LUNGS: Clear to auscultation. ABDOMEN: Soft. Bowel sounds present. No organomegaly. EXTREMITIES: No edema. No cyanosis. NEUROLOGIC: The patient is awake and alert. Moving all four extremities. No focal deficits. LABORATORY DATA: Glucose 226, 294. I do not have recent labs today but reviewed the old labs. Influenza type A and B are negative. ASSESSMENT AND PLAN: Mrs. Nova Broderick is an 87-year-old lady with leukocytosis, anemia, renal insufficiency, hyperglycemia, came to the emergency room with shortness of breath, low blood pressure, bradycardia. The patient has history of diabetes mellitus, hypertension, dementia, chronic diastolic dysfunction, congestive heart failure, cardiomegaly, anxiety, rheumatoid arthritis, chest x-ray showed mild cardiomegaly, mild respiratory condition. EKG shows sinus bradycardia. Troponin was . Left ventricular ejection fraction 65%, severe pulmonary hypertension, moderate moderate left pleural effusion. Seen by the section cutter and the director special education. Doppler ultrasound of the legs done. Lung scan is done. No evidence of deep venous thrombosis in the venous segment of both the lower extremities. Daughter, brother, and nephew were on the bed side. Length of time discussion done. All questions answered. Filtration Operator on the case, like steroid. We will repeat labs, out of bed, physical therapy. We will follow. Stephani Peña MD
[2018-06-16] MEDS: Multivitamin Vitamin B Complex (Nephro-Vite) Tab PO SCH (09:34)
[2018-06-16] MEDS: Lidocaine 5% Patch TD SCH (09:34)
[2018-06-16] MEDS: Pantoprazole 40 mg EC Tab PO SCH (09:35)
[2018-06-16] MEDS: cefTRIAXone 1 gm 1 GM/100 ML BAG IVPB SCH (09:35)
[2018-06-16] MEDS: Azithromycin 500MG/NS 250ml 500 MG/250 ML BAG IVPB SCH (09:36)
[2018-06-16] MEDS: guaiFENesin DM 100 mg-10 mg/5 ml UD PO PRN (09:37)
--- NOTE | 2018-06-16 10:39 | RAD ---
Date of service: 06/16/2018 HISTORY: F/U pneumonia and compare COMPARISON: 06/13/2018 TECHNIQUE: Chest PA and lateral FINDINGS: LUNGS: No active pulmonary disease. PLEURA: No significant pleural effusion identified. No pneumothorax apparent. CARDIOVASCULAR: No aortic atherosclerotic calcification present. Moderate cardiomegaly no pulmonary vascular congestion. OSSEOUS STRUCTURES: Chronic fracture of the right humeral neck VISUALIZED UPPER ABDOMEN: Normal. OTHER FINDINGS: None. IMPRESSION: No active disease.
[2018-06-16 11:22] LABS: HEMOGLOBIN 7.9 g/dL (12.0-16.0)
--- NOTE | 2018-06-16 12:21 | PN ---
PULMONARY PROGRESS NOTE DATE: 06/16/2018 SUBJECTIVE: The patient is sitting up in bed with daughter at bedside. No overnight events reported. The patient does continue to report occasional coughing. Nursing staff reports hearing wheezing at times. No hemoptysis, hematemesis, hematuria or diarrhea reported. OBJECTIVE VITAL SIGNS: Blood pressure 164/91, pulse 81, temperature 98.3 and pulse ox 95% on room air. GENERAL: No acute distress. HEENT: Moist mucous membranes. Small oral cavity. Crowded airway. NECK: Supple. No JVD. LUNGS: Scattered rhonchi. Few crackles at bases. CARDIOVASCULAR: S1 and S2 audible. ABDOMEN: Soft and nontender. No distention. No organomegaly. EXTREMITIES: No lower extremity edema. NEUROLOGIC: Awake, alert, verbal, follow simple commands. LABORATORY DATA: Reviewed. WBC 11.4, RBC 2.90, hemoglobin 8, hematocrit 24.8 and platelets 506. Sodium 138, potassium 4.6, chloride 107, carbon dioxide 22, anion gap 14, BUN 68, creatinine 2.1, GFR 22, POC glucose 242, random glucose 246, calcium 9.1, phosphorus 5.8 and magnesium 2.3. TIBC 211. TSH 0.60. Chest x-ray shows no active disease. Lung perfusion and ventilation scan shows low probability of ventilation perfusion scan for pulmonary embolism. Venous duplex shows no sonographic evidence for deep venous thrombosis in the visualized segments of both lower extremities. MEDICATIONS: Reviewed. Tylenol 650 mg p.o. every 4 hours p.r.n. for mild pain, DuoNeb 3 mL inhalation every 2 hours p.r.n., Norvasc 5 mg p.o. daily, Brovana 15 mcg inhalation every 12 hours, azithromycin 500 mg IV piggyback daily, Pulmicort 0.5 mg inhalation every 12 hours, ceftriaxone 1 g IV piggyback daily, Lexapro 5 mg p.o. daily, ferrous gluconate 324 mg p.o. three times a day, Lasix 40 mg IV push twice a day, glipizide 5 mg p.o. daily, Robitussin-DM 5 mL every 4 hours p.r.n., Humulin R sliding scale, Lidoderm patch applied to affected area, Solu-Medrol 40 mg IV push every 6 hours, Singulair 10 mg p.o. daily, pantoprazole 40 mg p.o. daily, Seroquel 12.5 mg p.r.n. at bedtime and Nephro-Andrae one tab p.o. daily. IMPRESSION AND PLAN: Sinusitis, may have acute bronchitis, valvular heart disease, renal failure, Alzheimer's type dementia, history of hypertension, diabetes, pulmonary hypertension, suspected sleep apnea syndrome. Case discussed with daughter at bedside today. Continue antibiotic therapy. Gastric and deep venous thrombosis prophylaxis. Continue inhaled bronchodilators, leukotriene inhibitors, inhaled steroids. The patient clinically seems to be improving, refusing continuous positive airway pressure machine for suspected sleep apnea syndrome. This patient was seen and examined with Dr. Queen. Discussed assessment and plan as described above. Thank you for this consult and we will follow with you. Rigoberto Avilez APN Faheem Queen MD
[2018-06-16] MEDS: Albuterol-Ipratrop 3 mg / 0.5 (3 ml) UD IH PRN (15:40)
[2018-06-16 19:06] LABS: FOLATE > 20.0 ng/mL
--- NOTE | 2018-06-16 20:58 | PN ---
DATE: 06/16/2018 SUBJECTIVE: The patient was followed up today. The patient presented much better. Psychotic symptoms are improving. The patient is much calmer and Seroquel 12.5 mg was started for hallucinations overnight. Usually, the patient is confused and has hallucinations while admitted to the medical side. Discussed with the patient's family. Risks, benefits and alternatives of the medications were discussed. Going back to my yesterday's recommendations, the patient's two daughters have power of energy attorney only for finances. This underwriter solicitation director advised family to obtain legal guardianship from the security services specialist because the patient has dementia, but if the patient has capacity to point her family to be power of energy attorney for medical issues, it would be better. Meanwhile going back to the patient's presentation, the patient is much calmer, pleasant, and was able to recognize her daughter. The patient does not appear to be in any distress, very pleasant. OBJECTIVE: VITAL SIGNS: Reviewed and seems to be stable. MENTAL STATUS EXAM: The patient appears to be alert and oriented in self as well as the patient knows that she is in the hospital, was able to recognize her family, but not aware of the date. Mood described as very good. Affect was more reactive, mood congruent. Thought process seems to be coherent, but at times the patient confabulates thought content. The patient denied any hallucinations, but overnight the patient requires to have Seroquel. Insight and judgment seems to be limited. Impulses are well controlled. MEDICATIONS: Reviewed. From the psychiatric standpoint, the patient is on Lexapro 5 mg as well as Seroquel 12.5 mg as needed for agitation and psychosis. The patient got only one dose. LABORATORY DATA: Labs reviewed. The patient still has leukocytosis. Chemistry reviewed. Microbiology reviewed. IMPRESSION: The patient has dementia plus delirium. Delirium is improving. PLAN: Continue current management. Continue current medication. Lexapro should be continued. Seroquel will be only as needed. The patient required to be seen by psychiatrist in the skilled nursing. The patient's family was advised to look for legal services and obtain power of energy attorney for medical condition in the future. The patient pose no imminent danger to self or others. Discussed with the family. As per collateral from the nursing staff, the patient is pleasant, cooperative, had fair appetite and sleep. Thank you very much, this underwriter solicitation director will sign off. Silvana Tristan MD
[2018-06-16] MEDS ORDERED: DiphenhydrAMINE 50 mg/ml Inj IVP STA (23:41)
[2018-06-17] MEDS: MethylPREDNISolone 40 mg Vial IVP SCH ×3 (05:28→17:27)
[2018-06-17] MEDS: Arformoterol 15 mcg/2 ml Inh Sol IH SCH ×2 (07:11→21:36)
[2018-06-17] MEDS: Budesonide 0.5 mg/2 ml Inhal Susp UD IH SCH ×2 (07:11→21:36)
--- NOTE | 2018-06-17 08:09 | CP.PCM.PN ---
Subjective - Date & Time of Evaluation Date of Evaluation: 06/17/18 Time of Evaluation: 07:25 - Subjective Subjective: Awake, alert, coughing and wheezing Reason for consultation: Cardiac evaluation of shortness of breath, low blood pressure and heart rate,History of diabetes,hypertension,dementia, chronic diastolic dysfunction congestive heart failure. Seen and examined by me and Dr. Forde Objective - Vital Signs/Intake and Output Vital Signs (last 24 hours): Temp Pulse Resp BP Pulse Ox 97.4 F L 74 20 136/76 98 06/17/18 06:00 06/17/18 06:00 06/17/18 06:00 06/17/18 06:00 06/17/18 06:00 Intake and Output: 06/17/18 06/17/18 06:59 18:59 Intake Total 100 Balance 100 - Medications Medications: Current Medications Acetaminophen (Tylenol 325mg Tab) 650 mg PO Q4H PRN PRN Reason: Pain, Mild (1-3) Last Admin: 06/16/18 22:00 Dose: 650 mg Albuterol/Ipratropium (Duoneb 3 Mg/0.5 Mg (3 Ml) Ud) 3 ml IH Q2H PRN PRN Reason: Shortness of Breath Last Admin: 06/16/18 15:40 Dose: 3 ml Amlodipine Besylate (Norvasc) 5 mg PO DAILY [facility] Last Admin: 06/16/18 09:35 Dose: 5 mg Arformoterol Tartrate (Brovana) 15 mcg IH [id number] [facility] Last Admin: 06/17/18 07:11 Dose: 15 mcg Budesonide (Pulmicort Respules) 0.5 mg IH Q12 [facility] Last Admin: 06/17/18 07:11 Dose: 0.5 mg Escitalopram Oxalate (Lexapro) 5 mg PO DAILY [facility] Last Admin: 06/16/18 09:34 Dose: 5 mg Ferrous Gluconate (Fergon) 324 mg PO TID [facility] Last Admin: 06/16/18 17:28 Dose: 324 mg Furosemide (Lasix) 40 mg IVP 1000,1800 [facility] Last Admin: 06/16/18 17:29 Dose: 40 mg Glipizide (Glucotrol) 5 mg PO DAILY [facility] Last Admin: 06/16/18 09:31 Dose: 5 mg Guaifenesin/Dextromethorphan (Robitussin Dm) 5 ml PO Q4 PRN PRN Reason: Cough Last Admin: 06/16/18 09:37 Dose: 5 ml Ceftriaxone Sodium (Rocephin 1 Gram Ivpb) 1 gm in 100 mls @ 100 mls/hr IVPB DAILY [facility]; Protocol Stop: 06/18/18 10:59 Last Admin: 06/16/18 09:35 Dose: 100 mls/hr Azithromycin (Zithromax 500mg In Ns) 500 mg in 250 mls @ 167 mls/hr IVPB DAILY [facility]; Protocol Last Admin: 06/16/18 09:36 Dose: 167 mls/hr Insulin Human Regular (Humulin R Med) 0 units SC ACHS [facility]; Protocol Last Admin: 06/16/18 22:00 Dose: Not Given Lidocaine (Lidoderm) 1 ea TD Q12H [facility] Last Admin: 06/16/18 09:34 Dose: 1 ea Methylprednisolone (Solu-Medrol) 40 mg IVP Q6 [facility] Last Admin: 06/17/18 05:28 Dose: 40 mg Montelukast Sodium (Singulair) 10 mg PO DAILY [facility] Last Admin: 06/16/18 09:36 Dose: 10 mg Pantoprazole Sodium (Protonix Ec Tab) 40 mg PO DAILY [facility] Last Admin: 06/16/18 09:35 Dose: 40 mg Quetiapine Fumarate (Seroquel) 12.5 mg PO HS PRN; Protocol PRN Reason: agitation/psychosis Last Admin: 06/16/18 18:51 Dose: 12.5 mg Vitamin B Complex/Vit C/Folic Acid (Nephro-Andrae) 1 tab PO DAILY [facility] Last Admin: 06/16/18 09:34 Dose: 1 tab - Labs Labs: 06/16/18 11:16 06/16/18 06:00 PT 12.1 SECONDS (9.4-12.5) 06/13/18 22:38 INR 1.06 06/13/18 22:38 APTT 28.6 Seconds (25.1-36.5) 06/13/18 22:38 - Constitutional Appears: No Acute Distress - Eye Exam Eye Exam: Normal appearance Pupil Exam: NORMAL ACCOMODATION - ENT Exam ENT Exam: Mucous Membranes Moist - Neck Exam Neck Exam: Full ROM - Respiratory Exam Respiratory Exam: Decreased Breath Sounds, Wheezes Additional comments: on Nasal cannula - GI/Abdominal Exam GI & Abdominal Exam: Soft, Normal Bowel Sounds - Extremities Exam Extremities Exam: Full ROM, Normal Capillary Refill - Neurological Exam Neurological Exam: Alert, Awake - Psychiatric Exam Psychiatric exam: Normal Affect, Normal Mood - Skin Skin Exam: Dry, Normal Color, Warm Assessment and Plan - Assessment and Plan (Free Text) Assessment: An 87 year old female who was brought to the ER due to shortness of breath, low blood pressure and heart rate. Per daughter she does not feel well. Denies shortness of breath now. History of diabetes,hypertension,dementia, chronic diastolic dysfunction congestive heart failure, former smoker,anxiety,rheumatoid arthritis.Chest X ray showed mild cardiomegaly, with mild vascular congestion, EKG showed Sinus Bradycardia 56/min,normal ECG. Troponin borderline normal. Echo done today. LVEF 65%, Moderate AR/MR, moderate to severe TR, RVSP 75mmHg, mod erate to severe pulmonary hypertension,moderate left pleural effusion,trace to small pericardial effusion. Severe pulmonary hypertension, moderate left pleural effusion. Lasix increase dosage. Pulmonary on consult.PRN Robitussin for cough. being evaluated by Psychiatry. Plan: Slept all night as per RN woke up with couging non productive with wheezing Nebulizer treatment administered PRN Robitussin Dm for cough Blood pressure stable Heart rate controlled On Norvasc 5 mg daily,Lasix 40 mg IV BID, Solumedrol 40 mg IV every 12 hours Continue IV antibiotics as ordered Continue nebulizer treatments Pulmonary on consult Glucose control Chart reviewed Will follow up Plan and treatment discussed with Dr. Forde
[2018-06-17] MEDS: Insulin Reg-MEDIUM-Coverage SC SCH ×4 (08:41→22:13)
[2018-06-17] MEDS: Multivitamin Vitamin B Complex (Nephro-Vite) Tab PO SCH (10:27)
[2018-06-17] MEDS: Pantoprazole 40 mg EC Tab PO SCH (10:27)
[2018-06-17] MEDS: Lidocaine 5% Patch TD SCH ×2 (10:37→12:49)
[2018-06-17] MEDS: guaiFENesin DM 100 mg-10 mg/5 ml UD PO PRN (10:42)
[2018-06-17] MEDS ORDERED: Benzocaine/Menthol (Cepacol) Lozenge MT PRN (11:02)
--- NOTE | 2018-06-17 11:51 | PN ---
DATE: 06/17/2018 REFERRING PHYSICIAN: Stephani Peña MD SUBJECTIVE: The patient is sitting up at bedside with daughter present. Nursing staff reports, the patient with increased confusion last night. Daughter reports that patient gets confused whenever she is in the hospital and gets agitated when her daughters are not present with her in the hospital. Daughter report that they did not stay over last night as they typically do. No headache, rhinitis, shortness of breath, chest pain, abdominal pain, nausea, vomiting, diarrhea, leg pain or leg swelling reported. The patient does report nonproductive cough. OBJECTIVE: GENERAL: No acute distress. VITAL SIGNS: Blood pressure 136/76, pulse 74, temperature 97.4 and oxygen saturation 98%. HEENT: Moist mucous membrane. NECK: Supple. No JVD. LUNGS: Scattered rhonchi. No audible wheeze. CARDIOVASCULAR: S1 and S2, audible. ABDOMEN: Soft and nontender. No distention. No organomegaly. EXTREMITIES: No lower extremity edema. NEUROLOGIC: Awake, alert and verbal. Follow simple commands. LABORATORY DATA: Reviewed. POC glucose 231. Rheumatoid factors negative. Hemoglobin 7.9 and hematocrit 24.0. MEDICATIONS: Reviewed. Tylenol 650 mg p.o. every 4 hours p.r.n. for mild pain, DuoNeb 3 mL inhalation every 2 hours p.r.n. for shortness of breath, amlodipine 5 mg p.o. daily, Brovana 50 mcg inhalation every 12 hours, azithromycin 500 mg daily, Pulmicort 0.5 mg inhalation every 12 hours, Rocephin 1 g daily, vitamin B12 of 1000 mcg IM daily, Lexapro 5 mg p.o. daily, ferrous gluconate 324 mg p.o. three times a day, Lasix 40 mg twice a day, glipizide 5 mg daily, Robitussin-DM 5 mL every 4 hours p.r.n., Humulin R sliding scale, Lidoderm patch every 12 hours affected area, Solu-Medrol 40 mg every 6 hours, Singulair 10 mg p.o. daily, Protonix 40 mg daily, Seroquel 12.5 mg p.o. at bedtime and Nephro-Andrae one tab p.o. daily. IMPRESSION AND PLAN: Sinusitis, may have acute bronchitis, valvular heart disease, renal failure, Alzheimer's type dementia, history of hypertension, diabetes, pulmonary hypertension, suspected sleep apnea syndrome. The patient presently refusing continuous positive airway pressure machine. Case discussed with Dr. Peña. Continue inhaled bronchodilators, leukotriene inhibitors, inhaled steroids, antibiotic therapy, gastric prophylaxis and deep venous thrombosis prophylaxis. Chest x-ray done 06/16/2018 shows no active pulmonary disease. We will repeat portable chest x-ray. The patient's cough could be related to multiple factors. We will recommend speech therapy evaluation for possible oropharyngeal dysphagia. Continue on gastric prophylaxis. We will add Tessalon-Perles for cough, Cepacol lozenges as needed for cough. Head of bed elevated at 45 degrees. Sleep apnea precaution. This patient was seen and examined with Dr. Queen. Discussed assessment and plan as described above. Thank you for this consult and we will follow with you. Rigoberto Avilez APN Faheem Queen MD [facility]
--- NOTE | 2018-06-17 12:36 | RAD ---
Date of service: 06/17/2018 HISTORY: cough COMPARISON: No prior. FINDINGS: LUNGS: There is an infiltrate at the left lung base that obscures the diaphragm. There also a patchy infiltrate along the left heart border in the lingular segment. There also a small amount of fluid in the major fissure on the left. PLEURA: As above CARDIOVASCULAR: No aortic atherosclerotic calcification present. Moderate cardiomegaly no pulmonary vascular congestion. OSSEOUS STRUCTURES: No significant abnormalities. VISUALIZED UPPER ABDOMEN: Normal. OTHER FINDINGS: None. IMPRESSION: There is an infiltrate at the left lung base that obscures the diaphragm. There also a patchy infiltrate along the left heart border in the lingular segment. There also a small amount of fluid in the major fissure on the left.
[2018-06-17] MEDS: cefTRIAXone 1 gm 1 GM/100 ML BAG IVPB SCH (12:38)
[2018-06-17] MEDS: Azithromycin 500MG/NS 250ml 500 MG/250 ML BAG IVPB SCH (13:48)
[2018-06-18] MEDS: MethylPREDNISolone 40 mg Vial IVP SCH ×3 (02:52→14:39)
[2018-06-18] MEDS: Lidocaine 5% Patch TD SCH ×3 (03:41→20:45)
[2018-06-18] MEDS: guaiFENesin DM 100 mg-10 mg/5 ml UD PO PRN ×2 (03:47→10:05)
[2018-06-18] MEDS: Albuterol-Ipratrop 3 mg / 0.5 (3 ml) UD IH PRN (04:40)
[2018-06-18] MEDS: Budesonide 0.5 mg/2 ml Inhal Susp UD IH SCH ×2 (08:31→21:15)
[2018-06-18] MEDS: Arformoterol 15 mcg/2 ml Inh Sol IH SCH ×2 (08:31→21:15)
[2018-06-18] MEDS: Insulin Reg-MEDIUM-Coverage SC SCH ×4 (08:38→22:00)
--- NOTE | 2018-06-18 09:26 | CP.PCM.PN ---
Subjective - Date & Time of Evaluation Date of Evaluation: 06/18/18 Time of Evaluation: 06:55 - Subjective Subjective: Awake, alert, coughing occasionally, wheezing Reason for consultation and follow up :Cardiac evaluation of shortness of breath, low blood pressure and heart rate,History of diabetes,hypertension,dementia, chronic diastolic dysfunction congestive heart failure. Seen and examined by me and Dr. Forde Objective - Vital Signs/Intake and Output Vital Signs (last 24 hours): Temp Pulse Resp BP Pulse Ox 97.4 F L 77 20 129/69 98 06/17/18 06:00 06/18/18 06:00 06/17/18 06:00 06/17/18 17:27 06/17/18 06:00 - Medications Medications: Current Medications Acetaminophen (Tylenol 325mg Tab) 650 mg PO Q4H PRN PRN Reason: Pain, Mild (1-3) Last Admin: 06/16/18 22:00 Dose: 650 mg Albuterol/Ipratropium (Duoneb 3 Mg/0.5 Mg (3 Ml) Ud) 3 ml IH Q2H PRN PRN Reason: Shortness of Breath Last Admin: 06/18/18 04:40 Dose: 3 ml Amlodipine Besylate (Norvasc) 5 mg PO DAILY [facility] Last Admin: 06/17/18 10:28 Dose: 5 mg Arformoterol Tartrate (Brovana) 15 mcg IH [id number] [facility] Last Admin: 06/18/18 08:31 Dose: 15 mcg Benzocaine/Menthol (Cepacol Sore Throat) 1 edmund MT Q2H PRN PRN Reason: Sore Throat Last Admin: 06/18/18 05:49 Dose: 1 edmund Benzonatate (Tessalon Perles) 100 mg PO BID [facility] Last Admin: 06/17/18 17:26 Dose: 100 mg Budesonide (Pulmicort Respules) 0.5 mg IH 08,1999 [facility] Cyanocobalamin (Vitamin B12 1000 Mcg/Ml Inj) 1,000 mcg IM DAILY [facility] Last Admin: 06/17/18 11:42 Dose: 1,000 mcg Docusate Sodium (Colace) 100 mg PO BID [facility] Last Admin: 06/17/18 17:26 Dose: 100 mg Escitalopram Oxalate (Lexapro) 5 mg PO DAILY [facility] Last Admin: 06/17/18 10:33 Dose: 5 mg Ferrous Gluconate (Fergon) 324 mg PO TID [facility] Last Admin: 06/17/18 17:26 Dose: 324 mg Furosemide (Lasix) 40 mg IVP 1000,1800 [facility] Last Admin: 06/17/18 17:27 Dose: 40 mg Glipizide (Glucotrol) 5 mg PO DAILY [facility] Last Admin: 06/17/18 10:27 Dose: 5 mg Guaifenesin/Dextromethorphan (Robitussin Dm) 5 ml PO Q4 PRN PRN Reason: Cough Last Admin: 06/18/18 03:47 Dose: 5 ml Ceftriaxone Sodium (Rocephin 1 Gram Ivpb) 1 gm in 100 mls @ 100 mls/hr IVPB DAILY [facility]; Protocol Stop: 06/18/18 10:59 Last Admin: 06/17/18 12:38 Dose: 100 mls/hr Azithromycin (Zithromax 500mg In Ns) 500 mg in 250 mls @ 167 mls/hr IVPB DAILY [facility]; Protocol Last Admin: 06/17/18 13:48 Dose: 167 mls/hr Insulin Human Regular (Humulin R Med) 0 units SC ACHS [facility]; Protocol Last Admin: 06/18/18 08:38 Dose: 3 unit Lidocaine (Lidoderm) 1 ea TD Q12H [facility] Last Admin: 06/18/18 03:41 Dose: Not Given Methylprednisolone (Solu-Medrol) 40 mg IVP Q6 [facility] Last Admin: 06/18/18 05:49 Dose: 40 mg Montelukast Sodium (Singulair) 10 mg PO DAILY [facility] Last Admin: 06/17/18 10:27 Dose: 10 mg Pantoprazole Sodium (Protonix Ec Tab) 40 mg PO DAILY [facility] Last Admin: 06/17/18 10:27 Dose: 40 mg Quetiapine Fumarate (Seroquel) 12.5 mg PO HS PRN; Protocol PRN Reason: agitation/psychosis Last Admin: 06/17/18 18:52 Dose: 12.5 mg Vitamin B Complex/Vit C/Folic Acid (Nephro-Andrae) 1 tab PO DAILY [facility] Last Admin: 06/17/18 10:27 Dose: 1 tab - Labs Labs: 06/16/18 11:16 06/16/18 06:00 PT 12.1 SECONDS (9.4-12.5) 12/04/18 22:38 INR 1.06 06/13/18 22:38 APTT 28.6 Seconds (25.1-36.5) 06/13/18 22:38 - Constitutional Appears: Non-toxic, No Acute Distress - Head Exam Head Exam: NORMAL INSPECTION, NORMOCEPHALIC - Eye Exam Eye Exam: Normal appearance Pupil Exam: NORMAL ACCOMODATION - ENT Exam ENT Exam: Mucous Membranes Moist - Respiratory Exam Respiratory Exam: Decreased Breath Sounds, Wheezes, NORMAL BREATHING PATTERN - Cardiovascular Exam Cardiovascular Exam: REGULAR RHYTHM, +S1, +S2 Additional comments: Telemetry NSR - GI/Abdominal Exam GI & Abdominal Exam: Soft, Normal Bowel Sounds - Extremities Exam Extremities Exam: Full ROM, Normal Capillary Refill - Neurological Exam Neurological Exam: Alert, Awake Additional comments: confuse - Psychiatric Exam Psychiatric exam: Normal Affect, Normal Mood - Skin Skin Exam: Dry, Normal Color, Warm Assessment and Plan - Assessment and Plan (Free Text) Assessment: An 87 year old female who was brought to the ER due to shortness of breath, low blood pressure and heart rate. Per daughter she does not feel well. Denies shortness of breath now. History of diabetes,hypertension,dementia, chronic diastolic dysfunction congestive heart failure, former smoker,anxiety,rheumatoid arthritis.Chest X ray showed mild cardiomegaly, with mild vascular congestion, EKG showed Sinus Bradycardia 56/min,normal ECG. Troponin borderline normal. Echo done today. LVEF 65%, Moderate AR/MR, moderate to severe TR, RVSP 75mmHg, moderate to severe pulmonary hypertension,moderate left pleural effusion,trace to small pericardial effusion. Severe pulmonary hypertension, moderate left pleural effusion. Lasix increased dosage. Pulmonary on consult. Evaluated by Psychiatry. Plan: Looks much better today, coughing non productive at times, Mild wheezing Periods of confusion Nebulizer treatment administered PRN Robitussin Dm and Tessalon for cough Blood pressure stable Heart rate controlled On Norvasc 5 mg daily,Lasix 40 mg IV BID, Solumedrol 40 mg IV every 12 hours Continue IV antibiotics as ordered Continue nebulizer treatments Pulmonary on consult Glucose control Chart reviewed Will follow up Plan and treatment discussed with Dr. Forde
[2018-06-18] MEDS: Multivitamin Vitamin B Complex (Nephro-Vite) Tab PO SCH (10:01)
[2018-06-18] MEDS: Pantoprazole 40 mg EC Tab PO SCH (10:02)
[2018-06-18] MEDS: cefTRIAXone 1 gm 1 GM/100 ML BAG IVPB SCH (10:04)
[2018-06-18 10:11] LABS: BASO # 0.01 K/mm3 (0.0-2.0); BASO % 0.1 % (0.0-3.0); GRAN # 15.15 (1.4-6.5); GRAN % 92.5 % (50.0-68.0); HEMOGLOBIN 8.6 g/dL (12.0-16.0); LYMPH # 0.6 (1.2-3.4); LYMPH % 3.6 % (22.0-35.0); MEAN CELL VOLUME 85.4 fl (80.0-105.0); MEAN CORPUSCULAR HEMOGLOBIN 27.8 pg (25.0-35.0); MEAN CORPUSCULAR HGB CONC 32.6 g/dl (31.0-37.0); MEAN PLATELET VOLUME 9.6 fl (7.0-11.0); MONO # 0.6 (0.1-0.6); MONO % 3.8 % (1.0-6.0); PLATELET COUNT 627 10^3/uL (120.0-450.0); RBC 3.09 10^6/uL (3.5-6.1); RED CELL DISTRIBUTION WIDTH 14.4 % (11.5-14.5); WHITE BLOOD COUNT 16.4 10^3/uL (4.5-11.0)
[2018-06-18 10:35] LABS: ALBUMIN 3.4 g/dL (3.0-4.8); CALCIUM 8.9 mg/dL (8.4-10.5)
[2018-06-18 11:31] LABS: LYMPHOCYTE 4 % (22.0-35.0); MONOCYTE 3 % (1.0-6.0); NEUTROPHIL 93 % (50.0-70.0); PLATELET ESTIMATE HIGH (NORMAL)
[2018-06-18] MEDS: Azithromycin 500MG/NS 250ml 500 MG/250 ML BAG IVPB SCH (15:48)
--- NOTE | 2018-06-18 20:07 | PQF ---
PROVIDER RESPONSE TEXT: Provider was unable to determine a response for this query. REVIEWER QUERY TEXT: Kidney Disease, Chronic CKD Stage Chronic Kidney Disease (CKD) is documented in the Medical Record. Please specify the disease stage ( includes probable or suspected) Such as: -- Chronic kidney disease Stage 1 -- Chronic kidney disease Stage 2 -- Chronic kidney disease Stage 3 -- Chronic kidney disease Stage 4 -- Chronic kidney disease Stage 5 -- Chronic kidney disease Stage 5, requiring dialysis -- End Stage Renal Disease -- Other, please specify Stages are defined by the [employer] as follows: CKD Stage I GFR >= 90 ml / min per 1.73 m2 and persistent albuminuria CKD Stage 2 GFR between 60 and 89 with persistent albuminuria CKD Stage 3 GFR between 30 and 59 CKD Stage 4 GFR between 15 and 29 CKD Stage 5 GFR between <15 or End Stage Renal Disease The patient's Clinical Indicators include: Please specify stage of CKD present in this patient. Query created by: Prabha Nuñez on 06/15/2018 2:33 PM Electronically signed by: Stephani Peña MD 06/18/2018 8:04 PM
[2018-06-18 22:16] LABS: URINE BILIRUBIN NEGATIVE (NEGATIVE); URINE BLOOD SMALL (NEGATIVE); URINE GLUCOSE (UA) NEGATIVE (NEGATIVE); URINE LEUKOCYTE ESTERASE NEGATIVE Leu/uL (NEGATIVE); URINE PROTEIN >=300 mg/dL (<30 mg/dL); URINE UROBILINOGEN 0.2 E.U./dL (<1 E.U./dL)
[2018-06-18 22:17] LABS: URINE APPEARANCE CLEAR (CLEAR); URINE COLOR LIGHT YELLOW (YELLOW)
[2018-06-18 22:25] LABS: URINE BACTERIA NEG (NEG); URINE RBC 0 - 2 /hpf (0-2); URINE WBC NEGATIVE /hpf (0-6)
--- NOTE | 2018-06-19 00:07 | PN ---
DATE: 06/18/2018 PULMONARY PROGRESS NOTE REFERRING PHYSICIAN: Dr. Stephani Peña. SUBJECTIVE: She is lying in the bed, sleepy, arousable. Daughter is at bedside. Last 48 hours events noted. Chest x-ray shows new infiltrate on the left side, on antibiotics, steroids, inhaled bronchodilator. Cough, 2 days better. No nausea, vomiting. No diarrhea, leg pain, leg swelling in the past. The patient's daughter refused swallow study. OBJECTIVE: VITAL SIGNS: Temperature is 98, heart rate 73, respiratory rate is 20, blood pressure 137/64, pulse ox 98% on 3 L nasal cannula. HEENT: Small oral cavity. Crowded airway. NECK: Supple. No JVD. LUNGS: Scattered rhonchi which is improved than yesterday. HEART: S1 and S2. ABDOMEN: Soft, nontender, no organomegaly. EXTREMITIES: No edema. NEUROLOGIC: Sleepy, arousable. Follows simple command. MEDICATIONS: She is on Brovana inhaled twice a day, Cepacol lozenges every 2 hours p.r.n., Colace 100 mg twice a day, DuoNeb every 2 hours p.r.n., ferrous gluconate 325 mg three times a day, Glucotrol 5 mg daily, insulin coverage, Lasix 20 mg twice a day, Lexapro 5 mg daily lidocaine patch every 12 hours, Nephro vitamins daily, Norvasc 5 mg daily Protonix 40 mg daily, Pulmicort inhaled twice a day, Robitussin DM 5 mL every 4 hours p.r.n., Seroquel 25 mg at dinner, losartan 5 mg at bedtime p.r.n., Singulair 10 mg daily, Solu-Medrol 40 mg every 12 hours, Tessalon Perles 100 mg twice a day, Tylenol p.r.n., vitamin B12 of 1000 mcg IM daily, Zithromax 5 mg daily. LABORATORY DATA: Shows hemoglobin 8.6, hematocrit 26.4, WBC 16.4, platelet count is 627. Sodium 138, potassium 4.0, chloride 108, bicarbonate 20, BUN 74, creatinine 2.0, glucose 280, calcium is 8.9, AST 33, ALT 24, alk phos is 79. Albumin 3.4. Microbiology; blood culture, no growth. Chest x-ray, which is done yesterday, June , shows new infiltrate in the left lung. IMPRESSION AND PLAN: Probably have recurrent aspiration pneumonia, history of sinusitis, valvular heart disease, renal failure, Alzheimer's type dementia, hypertension, diabetes, pulmonary hypertension, suspected sleep apnea syndrome. Spoke to the patient's daughter at bedside. All the questions answered, and educated her about aspiration and oropharyngeal dysphagia and its consequences. She should be sitting up while eating and stay up at least hour after the feeding. We will re-request speech therapy evaluation. Decrease Solu-Medrol. Continue antibiotics. Gastric prophylaxis, deep venous thrombosis prophylaxis. Thank you and we will follow with you. Faheem Queen MD
--- NOTE | 2018-06-19 00:09 | PN ---
DATE: 06/18/2018 SUBJECTIVE: The patient is an 87-year-old female. The patient was seen and examined at the bedside on 06/18/2018, looking comfortable. No fever. No chills. No nausea, vomiting, diarrhea. Mental level is better. Last night, the patient was having problems with sundowning. We have to put the patient for one-to-one. No headache. No dizziness. Daughter was sitting on the bedside. No chest pain. No palpitation. PHYSICAL EXAMINATION VITAL SIGNS: Temperature 97.4, pulse 77, respiratory rate 20, blood pressure 129/69, pulse oximetry 98. HEENT: Head: Normocephalic, atraumatic. Eyes: PERRLA. Extraocular muscles are intact. Conjunctivae clear. Nose patent. Mucous membranes moist. NECK: Supple. No carotid bruit. No JVD or thyromegaly. CHEST: Bilaterally symmetrical. HEART: S1 and S2 positive. LUNGS: Clear to auscultation. ABDOMEN: Soft. Bowel sounds present. No organomegaly. EXTREMITIES: No edema. No cyanosis. NEUROLOGIC: The patient is awake and alert. Moving all 4 extremities. No focal deficit. MEDICATIONS: Tylenol, DuoNeb, Norvasc, Brovana, Cepacol Lozenges, Tessalon, Pulmicort, Colace, Lexapro, Fergon, Lasix, Glucotrol, Robitussin, Rocephin, Zithromax, Lidoderm, Solu-Medrol, Singulair, Protonix, Seroquel. LABORATORY DATA: Hemoglobin 7.9, hematocrit 24. Sodium 138, potassium 4.6, BUN 68, creatinine 2.1, glucose 246. ASSESSMENT AND PLAN: Ms. Nova Broderick, 87-year-old lady with anemia, improving, status post B12 injection and iron infusion; renal insufficiency; hyperglycemia. The patient has history of diabetes mellitus, hypertension, dementia, chronic diastolic dysfunction, congestive heart failure, former smoker, anxiety, rheumatoid arthritis, cardiomyopathy, history of sinus bradycardia. Echo showed left ventricular ejection fraction of 65%, pleural effusion. Lasix, we will increase dosage. Renal insufficiency, the patient looks better. Cough is better. Mild wheezing. Tapering dose of steroids, nebulizer treatment, Robitussin p.r.n. Blood pressure is stable. Heart rate is controlled on Norvasc. Continue IV antibiotics. Continue nebulizer treatment. Gastrointestinal and deep venous thrombosis prophylaxis. Repeat labs. We will follow up. Stephani Peña MD
[2018-06-19 07:45] LABS: HEMOGLOBIN 8.1 g/dL (12.0-16.0); MEAN CELL VOLUME 85.2 fl (80.0-105.0); MEAN CORPUSCULAR HEMOGLOBIN 27.3 pg (25.0-35.0); MEAN PLATELET VOLUME 9.5 fl (7.0-11.0); RBC 2.97 10^6/uL (3.5-6.1); RED CELL DISTRIBUTION WIDTH 14.5 % (11.5-14.5); WHITE BLOOD COUNT 14.5 10^3/uL (4.5-11.0)
[2018-06-19] MEDS: Insulin Reg-MEDIUM-Coverage SC SCH ×4 (07:47→21:45)
--- NOTE | 2018-06-19 07:49 | PN ---
DATE: 06/16/2018 REASON FOR CONSULTATION: Cardiac evaluation, shortness of breath, low heart rate, low blood pressure, and transferred to the [facility]. SUBJECTIVE: The patient denies any chest pain, shortness of breath or any palpitation. This note is in addition to the dictated our nurse practitioner, Uyen Garcia. The patient's heart rate and blood pressure is stable. Heart rate is and blood pressure 164/90. Recent echo shows moderate AR, moderate MR, [id number] tricuspid regurgitation, RV systolic pressure of consistent with severe pulmonary hypertension. RECOMMENDATION: Continue Lasix. Continue amlodipine. Monitor heart rate and blood pressure. We will follow with you. Discussed with the daughter for acute exacerbation of COPD and COPD treatment. Yesterday, the patient underwent echocardiography that revealed preserved LV function with ejection fraction of 65%, normal RV function, moderate mitral regurgitation, nzsynykt-[id number] tricuspid regurgitation, aortic valve not well visualized, possibly bicuspid, but no significant stenosis is noted. Moderate aortic regurgitation, [id number] tricuspid regurgitation, solvvgju-da-ewouyg pulmonary hypertension. Monitor closely H and H, if H and H goes below 8, consider packed RBC transfusion. We will follow with you. Thank you Dr. Peña for providing us the opportunity in taking care of the patient, Nova Broderick. Faheem Payne MD
[2018-06-19 08:01] LABS: ALB/GLOB RATIO 0.9 (1.1-1.8); CALCIUM 8.7 mg/dL (8.4-10.5)
[2018-06-19] MEDS: Albuterol-Ipratrop 3 mg / 0.5 (3 ml) UD IH PRN (08:45)
[2018-06-19] MEDS: Arformoterol 15 mcg/2 ml Inh Sol IH SCH (08:45)
[2018-06-19] MEDS: Budesonide 0.5 mg/2 ml Inhal Susp UD IH SCH (08:46)
[2018-06-19] MEDS: Lidocaine 5% Patch TD SCH ×2 (09:49→21:41)
[2018-06-19] MEDS: Pantoprazole 40 mg EC Tab PO SCH (09:50)
[2018-06-19] MEDS: Multivitamin Vitamin B Complex (Nephro-Vite) Tab PO SCH (09:50)
[2018-06-19] MEDS: Azithromycin 500MG/NS 250ml 500 MG/250 ML BAG IVPB SCH (09:51)
--- NOTE | 2018-06-19 10:17 | PN ---
DATE: 06/16/2018 SUBJECTIVE: The patient is an 87-year-old female. The patient was seen and examined at the bedside on 06/16/2018. Daughter was sitting on the bedside also. The patient looks better. No fever. No chills. No nausea, vomiting, diarrhea. Cough and shortness of breath are better, but sometimes getting wheezing with coughing. PHYSICAL EXAMINATION VITAL SIGNS: Temperature 98.6, blood pressure 160/90, pulse oximetry 91. HEENT: Head: Normocephalic, atraumatic. Eyes: PERRLA. Extraocular muscles are intact. Conjunctivae clear. Nose patent. Mucous membranes moist. NECK: Supple. No carotid bruit. No JVD or thyromegaly. CHEST: Bilaterally symmetrical. HEART: S1 and S2 positive. LUNGS: Scattered rhonchi. Few crackles at the bases. ABDOMEN: Soft, nontender. No organomegaly. EXTREMITIES: No edema. No cyanosis. NEUROLOGICAL: Awake, alert. Follows simple commands. LABORATORY DATA: White blood cells 11.4, hemoglobin 8.0, hematocrit 24.8. Sodium 138, potassium 4.6, BUN , creatinine 2.1, calcium 9.1. TSH 0.60. ASSESSMENT AND PLAN: Ms. Nova Broderick, 87-year-old lady, with multiple medical problems, has sinusitis, acute bronchitis, valvular heart disease, renal failure, dementia, hypertension, diabetes mellitus, pulmonary hypertension, suspect sleep apnea syndrome. Daughter is sitting on the bedside. Length of time discussion done. All questions answered. Continue antibiotic therapy. Gastric and deep venous thrombosis prophylaxis. Continue inhaled bronchodilator. We will continue Lipitor, inhaled steroid. The patient is doing better; refusing bilevel positive airway pressure. Continue Tylenol, DuoNeb, Norvasc, Brovana, azithromycin, Pulmicort, ceftriaxone, Lexapro, ferrous gluconate. We will follow up. Discussion done with daughter sitting on the bedside. All questions answered. Stephani Peña MD
--- NOTE | 2018-06-19 10:21 | PN ---
DATE: 06/17/2018 SUBJECTIVE: The patient is an 87-year-old female. The patient was seen and examined at the bedside, 06/17/2018. Dr. Queen's nurse practitioner was on the bedside. Daughter was standing on the bedside also. Length of time discussion done. The patient is feeling better, but last night she has episode of confusion, but in the morning, she was oriented. No fever. No chills. No hematuria or hematochezia. No headache. No dizziness. PHYSICAL EXAMINATION: VITAL SIGNS: Blood pressure , pulse 74, temperature 97.4, and oxygenation 98. HEENT: Head is normocephalic and atraumatic. Eyes; PERRLA. Extraocular muscles are intact. Conjunctivae clear. Nose patent. Mucous membranes moist. NECK: Supple. No carotid bruits, JVD, or thyromegaly. CHEST: Bilaterally symmetrical. HEART: S1 and S2 positive. LUNGS: Clear to auscultation. ABDOMEN: Soft. Bowel sounds positive. No organomegaly. EXTREMITIES: No edema. No cyanosis. NEUROLOGIC: The patient is awake and alert. Moving all four extremities. No focal deficits. LABORATORY DATA: Glucose 231. Rheumatoid factor negative. Hemoglobin 7.9 and hematocrit 24. ASSESSMENT AND PLAN: Ms. Tiffanie Broderick is an 87-year-old lady with sinusitis, bronchitis, valvular heart diseases and failure, dementia, history of hypertension, diabetes mellitus, pulmonary hypertension, sleep apnea syndrome, and has anemia. We will monitor hemoglobin and hematocrit, gave iron infusion and vitamin B12. Urged to continue to use bilevel positive airway pressure. Continue inhaled bronchodilators, nicotine inhalers, and inhaled steroids. Antibiotic therapy and gastric prophylaxis. Discussion done with the patient's daughter and Dr. Queen's clinical aide nurse practitioner. We will continue . Continue antibiotics. Gastrointestinal and deep venous thrombosis prophylaxes, out of bed, physical therapy, and we will follow up. Stephani Peña MD
[2018-06-19] MEDS ORDERED: MethylPREDNISolone 40 mg Vial IVP SCH ×2 (12:00)
--- NOTE | 2018-06-19 15:02 | PN ---
PULMONARY PROGRESS NOTE DATE: 06/19/2018 REFERRING PHYSICIAN: Dr. Stephani Peña. SUBJECTIVE: The patient is sitting up in bed with daughter at bedside. No complaint of headache, rhinitis, shortness of breath, chest pain, abdominal pain, nausea, vomiting, dysuria, leg pain, or leg swelling reported. The patient does report to have continued cough. States that she does feel better. Daughter reports that the patient continues to be confused the longer she stays in the hospital. OBJECTIVE: GENERAL: No acute distress. VITAL SIGNS: Blood pressure 153/76, pulse 73, temperature 98.4 and oxygen saturation 98% on 2 liters nasal cannula. HEENT: Small oral cavity, crowded airway, moist mucous membranes. NECK: Supple. No JVD. LUNGS: Scattered rhonchi bilaterally. HEART: S1 and S2 audible. ABDOMEN: Soft and nontender. No distention. No organomegaly. EXTREMITIES: No bilateral lower extremity edema. NEUROLOGIC: Awake, alert, verbal, follow simple commands, and has periods of confusion. MEDICATIONS: Reviewed. Tylenol 650 mg every 4 hours p.r.n. for mild pain, DuoNeb 3 mL inhalation every 2 hours p.r.n., Norvasc 5 mg p.o. daily, Brovana 15 mcg inhalation every 12 hours, Zithromax 500 mg p.o. daily, Cepacol lozenge every 2 hours p.r.n., Tessalon Perles 100 mg p.o. twice a day, Pulmicort 0.5 mg inhalation twice a day, vitamin B12 1000 mcg IM daily, Colace 100 mg p.o. daily, Lexapro 5 mg p.o. daily, ferrous gluconate 324 mg p.o. three times a day, Lasix 20 mg IV push twice a day, glipizide 5 mg p.o. daily, Robitussin-DM 5 mL p.o. every 4 hours p.r.n., Humulin R sliding scale, lidocaine patch topically every 12 hours to affected area, Solu-Medrol 30 mg IV push every 12 hours, Singulair 10 mg p.o. daily, pantoprazole 40 mg p.o. daily, Seroquel 25 mg as needed at bedtime and Nephro-Andrae one tab p.o. daily. LABORATORY DATA: Reviewed. WBC 14.5, RBC 2.97, hemoglobin 8.1, hematocrit 25.3, and platelets 591. Sodium 142, potassium 3.8, chloride 111, carbon dioxide 23, anion gap 12, BUN 73, creatinine 1.6, GFR 30, POC glucose 153, random glucose 170, calcium 8.7, total bilirubin 0.2, AST 45, ALT 30, alkaline phosphatase 70, total protein 6.3, albumin 3.0, globulin 3.3, and albumin-globulin ratio 0.9. Urinalysis shows urine protein greater than 300 and urine blood small. IMPRESSION AND PLAN: Probable recurrent aspiration pneumonia, history of sinusitis, valvular heart disease, renal failure, Alzheimer's type dementia, hypertension, diabetes, pulmonary hypertension, suspected sleep apnea syndrome. Discussed with daughter at bedside, aspiration and oropharyngeal dysphagia. Discussed keeping head of bed elevated while eating or drinking. Case also discussed with in-house nurse practitioner. We will do repeat chest x-ray to follow up on infiltrate. Solu-Medrol decreased today, we will consider decreasing further tomorrow based on clinical presentation and chest x-ray. The patient needs speech therapy evaluation. Continue antibiotic therapy, gastric prophylaxis, and deep venous thrombosis prophylaxis. The patient and daughter continue to refuse continuous positive airway pressure machine for sleep apnea syndrome. For sleep apnea precaution; head of bed elevated at 45 degrees; aspiration precaution and pressure ulcer precaution. The patient is at high risk for aspiration recurrence. This patient was seen and examined with Dr. Queen. Discussed assessment and plan as described above. Thank you for this consult and we will follow with you. Rigoberto Avilez APN Faheem Queen MD
[2018-06-19] MEDS ORDERED: Potassium Chloride 20 mEq ER Tab PO ONE (15:18)
--- NOTE | 2018-06-19 17:21 | RAD ---
Date of service: 06/19/2018 HISTORY: Follow-up infiltrate. COMPARISON: 06/17/2018. FINDINGS: LUNGS: Stable left lower lobe infiltrate. Possible infiltrate right base obscuring the right hemidiaphragm. PLEURA: Left pleural effusion inseparable from left lower lobe infiltrate. CARDIOVASCULAR: Atherosclerotic calcifications identified primarily aortic arch. No radiographic findings to suggest acute or significant cardiovascular disease. OSSEOUS STRUCTURES: No significant abnormalities. VISUALIZED UPPER ABDOMEN: Normal. OTHER FINDINGS: None. IMPRESSION: Stable left lower lobe infiltrate. Possible right lower lobe infiltrate.
--- NOTE | 2018-06-19 20:11 | PN ---
DATE: 06/19/2018 REASON FOR CONSULTATION: Followup cardiac evaluation with shortness of breath, hypertension, bradycardia, and now the patient denies any chest pain, shortness of breath, or any palpitations. SUBJECTIVE: The patient is stable. The patient's daughter is at bedside. PHYSICAL EXAMINATION: As follows, VITAL SIGNS: Temperature afebrile, heart rate 62, blood pressure 153/76. HEENT: PERRLA. Extraocular muscles intact. NECK: Supple. No carotid bruit. No thyromegaly. CHEST: Clear to auscultation. HEART: S1 and S2 regular. ABDOMEN: Soft. EXTREMITIES: Clubbing and cyanosis negative. LABORATORY DATA: Blood workup, WBC 14.5, hemoglobin 8.2, hematocrit 25.3, platelet count 591. Chemistry shows sodium 140, potassium 3.8, chloride 101, carbon dioxide 23, anion gap of 12, BUN 73, creatinine 1.6. IMPRESSION: Chronic renal insufficiency, chronic kidney disease, admitted with congestive hear failure, acute bronchitis, diastolic dysfunction, ejection fraction preserved at last echo, moderate mitral regurgitation, moderate aortic regurgitation, cgispvtl-[id number]-[id number] tricuspid regurgitation, right ventricular systolic pressure of 75 consistent with zxiqeudm-if-usuatq pulmonary hypertension. RECOMMENDATION: Continue diuretics. Monitor electrolytes closely. I will give 20 of K-Dur. Continue albuterol. Continue lidocaine patch. Continue treatment for COPD. Continue Zithromax. We will follow with you. Thank you, Dr. Peña for providing us the opportunity in taking care of the patient, [place]. Discussed with daughter. Faheem Payne MD
[2018-06-19] MEDS: MethylPREDNISolone 40 mg Vial IVP SCH (21:40)
[2018-06-20] MEDS: guaiFENesin DM 100 mg-10 mg/5 ml UD PO PRN (05:04)
[2018-06-20] MEDS: Arformoterol 15 mcg/2 ml Inh Sol IH SCH (08:10)
[2018-06-20] MEDS: Budesonide 0.5 mg/2 ml Inhal Susp UD IH SCH (08:10)
--- NOTE | 2018-06-20 08:13 | PN ---
DATE: 06/19/2018 SUBJECTIVE: The patient is an 87-year-old female. The patient was seen and examined at the bedside on 06/19/2018, looking comfortable but still having one-to-one. I saw her in the morning. No fever. No chills. Cough is better. Shortness of breath is better. No nausea or vomiting. No headache. No dizziness. PHYSICAL EXAMINATION: VITAL SIGNS: Temperature 98.3, pulse 76, blood pressure 153/76, and respiratory rate 19. HEENT: Head: Normocephalic, atraumatic. Eyes: PERRLA. Extraocular muscles are intact. Conjunctivae clear. Nose patent. Mucous membranes moist. NECK: Supple. No carotid bruit. No JVD or thyromegaly. CHEST: Bilaterally symmetrical. HEART: S1 and S2 positive. LUNGS: Bilaterally clear to auscultation. ABDOMEN: Soft. Bowel sounds present. No organomegaly. EXTREMITIES: No edema. No cyanosis. NEUROLOGIC: The patient is awake and alert. Moving all 4 extremities. No focal deficit. MEDICATIONS: Brovana, Cepacol Lozenges, Colace, DuoNeb, ferrous gluconate, Glucotrol, insulin, Lasix, Lexapro, Lidoderm, Nephro-Andrae, Norvasc, Protonix, Pulmicort Respules, Robitussin, Seroquel, Singulair, Solu-Medrol, . ASSESSMENT AND PLAN: Ms. Nova Broderick Stephani Peña MD
[2018-06-20] MEDS: MethylPREDNISolone 40 mg Vial IVP SCH (09:32)
[2018-06-20] MEDS: Pantoprazole 40 mg EC Tab PO SCH (09:33)
[2018-06-20] MEDS: Multivitamin Vitamin B Complex (Nephro-Vite) Tab PO SCH (09:35)
[2018-06-20] MEDS: Lidocaine 5% Patch TD SCH (09:37)
[2018-06-20] MEDS: Insulin Reg-MEDIUM-Coverage SC SCH ×2 (09:52→12:54)
[2018-06-20] MEDS ORDERED: MethylPREDNISolone 40 mg Vial IVP SCH (10:15)
[2018-06-20 11:14] LABS: HEMOGLOBIN 8.8 g/dL (12.0-16.0)
[2018-06-20] MEDS ORDERED: Potassium Chloride 20 mEq ER Tab PO ONE (11:27)
--- NOTE | 2018-06-20 13:13 | PN ---
PULMONARY PROGRESS NOTE DATE: 06/20/2018 REFERRING PHYSICIAN: Dr. Stephani Peña. SUBJECTIVE: The patient is sitting up in bed. No acute distress. No overnight events reported. No hemoptysis, hematemesis, hematuria, or diarrhea reported. OBJECTIVE: GENERAL: No acute distress. VITAL SIGNS: Blood pressure 157/78, pulse 65, temperature 97.4, and oxygen saturation 98%. HEENT: Moist mucous membranes. Crowded airway. Small oral cavity. NECK: Supple. No JVD. LUNGS: Scattered rhonchi. Few crackles at the bases. CARDIOVASCULAR: S1, S2 audible. ABDOMEN: Soft, nontender. No distention. No organomegaly. EXTREMITIES: No bilateral lower extremity edema. NEUROLOGIC: Awake, alert, verbal, and follows simple commands. MEDICATIONS: Reviewed. Tylenol 650 mg every 4 hours p.r.n. for mild pain, DuoNeb 3 mL inhalation every 2 hours p.r.n., Norvasc 5 mg p.o. daily, Brovana 15 mcg inhalation every 12 hours, Zithromax 500 mg p.o. daily, Cepacol lozenges p.r.n., Tessalon Perles 100 mg twice a day, Pulmicort 0.5 mg inhalation twice a day, vitamin B12 1000 mcg IM daily, Colace 100 mg twice a day, Lexapro 5 mg daily, ferrous gluconate 324 mg three times a day, Lasix 20 mg twice a day, glipizide 5 mg daily, Robitussin-DM 5 mL every 4 hours p.r.n., Humulin R sliding scale, lidocaine patch topically to affected area every 12 hours, Singulair 10 mg p.o. daily, Protonix 40 mg p.o. daily, Seroquel 25 mg at bedtime p.r.n., Nephro-Andrae one tab p.o. daily. LABORATORY DATA: Reviewed. Hemoglobin 8.8 and hematocrit 27. Chest x-ray, stable left lower lobe infiltrate, possible right lower lobe infiltrate. IMPRESSION AND PLAN: Probable recurrent aspiration pneumonia, history of sinusitis, valvular heart disease, renal failure, Alzheimer's type dementia, hypertension, diabetes, pulmonary hypertension, suspected sleep apnea syndrome. Pulmonary point of view, continue inhaled bronchodilators, continue antibiotic therapy, gastric prophylaxis and deep venous thrombosis prophylaxis. Suspect sleep apnea syndrome, but the patient continues to refuse continuous positive airway pressure machine despite encouragement. Aspiration precaution and pressure ulcer precaution. The patient is at high risk for aspiration recurrence. We recommend the patient eat with head of bed elevated at 45 degrees or more. The patient should be sitting up one hour after feeding. This patient was seen and examined with Dr. Queen. Discussed assessment and plan as described above. Thank you for this consult and we will follow with you. Rigoberto Avilez APN Faheem Queen MD
--- NOTE | 2018-06-20 16:54 | PN ---
DATE: 06/20/2018 REASON FOR CONSULTATION: Followup, cardiac evaluation, admitted with shortness of breath, decompensated congestive heart failure, bradycardia. Now, the patient is stable. Denied any chest pain, shortness of breath, or any palpitation. CHF and diastolic dysfunction. SUBJECTIVE: Daughter is at the bedside, concerned to take home. PHYSICAL EXAMINATION: GENERAL: Not in apparent distress. VITAL SIGNS: Temperature afebrile, heart rate 65, blood pressure 157/60. HEENT: PERRLA. Extraocular muscles are intact. NECK: Supple. No carotid bruit or thyromegaly. CHEST: Clear to auscultation. HEART: S1 and S2, regular. ABDOMEN: Soft. EXTREMITIES: Clubbing and cyanosis negative. LABORATORY DATA: Blood workup as follows: WBC 14.5, hemoglobin 8.1, hematocrit 25.3, platelet count 591. Repeat hemoglobin 8.8 and hematocrit 27. Sodium 140, potassium 3.8, chloride 101, carbon dioxide 23, anion gap of 20, BUN 73, creatinine 1.6. IMPRESSION: An 87-year-old female with past medical history significant for renal insufficiency, admitted with congestive heart failure, diastolic dysfunction, acute bronchitis, exacerbation of chronic obstructive pulmonary disease. Echocardiogram shows preserved left ventricular function, moderate mitral regurgitation, moderate aortic regurgitation, rhwehilp-hq-ekblxt tricuspid regurgitation, right ventricular systolic pressure 75 consistent with [id number]-bf-qardgp pulmonary hypertension. RECOMMENDATION: Continue diuretics. Monitor electrolytes closely. Supplement potassium as needed supplement. Monitor renal function closely because the patient admitted with acute kidney injury with creatinine 2.5 and stage IV CKD, now improved to 1.6 that is stage III CKD disease. On admission, lung scan showed low probability for PE. Continue treatment for COPD. Continue iron supplementation for anemia. The patient is on IV Lasix. Continue the supplement potassium. Avoid nephrotoxic medications. We will follow with you. Thank you Dr. Peña for providing us the opportunity in taking care of the patient, Nova Broderick. Faheem Payne MD
[2018-06-20 17:09] VITALS: BP 166/80; PULSE 73; RESP 19; TEMP 98.4; O2SAT 95
[2018-06-21] MEDS ORDERED: Amoxicillin-Clav 500-125 mg Tab PO SCH (10:00)
== END 2018-06-20 18:00 | DRG 202 ==
LOC: ED 20:40 → ERH 06-14 00:26 → 3RSO 06-14 16:50
PROVIDERS: ADMIT Internal Medicine; ATTEND Internal Medicine
DX: J20.9 Acute bronchitis, unspecified (principal); J69.0 Pneumonitis due to inhalation of food and vomit; J44.1 Chronic obstructive pulmonary disease with (acute) exacerbation; I50.32 Chronic diastolic (congestive) heart failure; N17.9 Acute kidney failure, unspecified; I42.9 Cardiomyopathy, unspecified; I13.0 Hypertensive heart and chronic kidney disease with heart failure and stage 1 through stage 4 chronic kidney disease, or unspecified chronic kidney disease; F02.81 Dementia in other diseases classified elsewhere, unspecified severity, with behavioral disturbance; N18.4 Chronic kidney disease, stage 4 (severe); G30.9 Alzheimer's disease, unspecified; J32.9 Chronic sinusitis, unspecified; R00.1 Bradycardia, unspecified; I27.20 Pulmonary hypertension, unspecified; R44.1 Visual hallucinations; R13.12 Dysphagia, oropharyngeal phase; Z87.891 Personal history of nicotine dependence; E11.22 Type 2 diabetes mellitus with diabetic chronic kidney disease; E11.65 Type 2 diabetes mellitus with hyperglycemia; G47.30 Sleep apnea, unspecified; I08.3 Combined rheumatic disorders of mitral, aortic and tricuspid valves; M06.9 Rheumatoid arthritis, unspecified; Z95.2 Presence of prosthetic heart valve; D50.9 Iron deficiency anemia, unspecified